=== PATIENT | male | born 1950 | race Caucasian/White ===

== ENCOUNTER → 2020-09-12 12:35 | Outpatient (BNVA) | payer MEDICARE, SELFPAY | PROVIDERS: PCP Nurse Practitioner Family; Referring Provider Nurse Practitioner Family; Visit Provider Internal Medicine Cardiovascular Disease | DX: I77.89 Other specified disorders of arteries and arterioles (principal); I35.1 Nonrheumatic aortic (valve) insufficiency; I10 Essential (primary) hypertension; Z79.899 Other long term (current) drug therapy | CPT/HCPCS: 93005; 99212 ==

== ENCOUNTER → 2020-11-11 08:26 | Outpatient (REF) | payer MEDICARE, SELFPAY ==
--- NOTE | 2020-11-11 08:29 | CA_ITS ---
Transthoracic Echocardiogram Patient (Last, First, Middle): Daniel Montilla A Gender: Male Date of : 1950 Age: 70 Procedure Date: 11/11/2020 Procedure Type: Transthoracic Echocardiogram Location: OP Height: 172.72 cm Weight: 92.99 kg BSA: 2.07 m2 Heart Rate: bpm BP: 130 / 80 mmHg Smash Piecer: [id number] Referring MD: Dylan Kovacs MD Living Skills Advisor: Dylan Kovacs MD Symptoms: I77.89 - Other specified disorders of arteries and arteri... Study Quality: Fair ECG Rhythm: Sinus Conclusions: - 1. Normal LV systolic function with pseudonormal filling pattern 2. Mild aortic regurgitation 3. Normal RV systolic pressure 4. Mildly dilated ascending aorta 5. No gross pericardial effusion Findings Left Ventricle Normal left ventricular size, thickness, and systolic function. The visually estimated ejection fraction is between 60-65%. Spectral Doppler is indicative of a pseudonormal filling pattern. E/E prime ratio is between 8 and 15 consistent with indeterminate filling pressures. Right Ventricle Normal right ventricular cavity size and systolic function. Atria Both atria are normal in size. There is no evidence of interatrial shunt. Aortic Valve Normal aortic valve structure and function. There is no aortic valve stenosis. There is mild aortic valve regurgitation. Mitral Valve There is mild anterior mitral leaflet thickening. There is moderate mitral annular calcification. There is trace mitral valve regurgitation. There is no mitral valve stenosis. Pulmonic Valve The pulmonic valve is likely normal. There is trace to mild pulmonic valve regurgitation. Tricuspid Valve Normal tricuspid valve structure. There is trace tricuspid valve regurgitation. The right ventricular systolic pressure is normal. The right ventricular systolic pressure is 27 mmHg. Normal right atrial pressure. There is no evidence of pulmonary hypertension. Great Vessels The pulmonary artery was not well visualized. There is mild dilatation of the ascending aorta measuring 3.90 cm. Venous The inferior vena cava is normal in size and collapses greater than 50% with inspiration. Pericardium/Pleural There is no evidence of pericardial effusion. Prior Study Comparison No significant change compared to prior study dated: 09/05/2018. Measurements 2D Linear Measurements IVSd: 0.99 0.6-0.9/0.6-1.0 cm LVIDd: 5.39 3.9-5.3/4.2-5.9 cm LVIDd Index: 2.60 2.4-3.2/2.2-3.1 cm/m2 LVIDs: 3.19 2.0-3.6 cm LVPWd: 1.15 0.7-1.1 cm Ao Root: 3.30 2.1-3.5 cm LA Diam: 3.90 2.7-3.8/3.0-4.0 cm LAIDs Index: 1.88 1.5-2.3 cm/m2 LV Mass: 280.30 67-162/88-224 g LV Mass Index: 135.41 43-95/49-115 g/m2 LVOT Diam: 2.00 3.0+(-)1.3 cm 2D Systolic Function EF 4C: 54.10 >55% EF 2C: 71.00 >55% EF BiP: 63.70 >55% Mitral Valve MV Pk E: 0.89 MV PK A: 0.76 MV Decel Time: 129.00 E/A: 1.20 E'Lateral: 10.60 E'Medial: 7.40 E/E' Med: 12.00 E/E' Lat: 8.40 PHT: 38.00 MVA PHT: 5.79 Decel [place]: 6.87 Aortic Valve AoV Pk Vladimir: 1.67 AoV Pk Grad: 11.00 AI Pk Vladimir: 3.87 AI [place]: 1.94 LVOT LVOT Pk Vladimir: 1.16 LVOT Mn Vladimir: 0.77 LVOT VTI: 0.27 LVOT Pk Grad: 5.00 LVOT Mn Grad: 3.00 LVOT Diam: 2.00 LVOT Area: 3.14 Diastolic Function MV Pk E: 0.89 MV Pk A: 0.76 E/A: 1.20 E'Medial: 7.40 E/E' Med: 12.00 E' Laterial: 10.60 E/E' Lat: 8.40 Right Ventricle TAPSE (mm): 2.60 Tricuspid Valve TR Pk Vladimir: 2.43 TR Pk Grad: 24.00 RA Press: 3.00 RVSP: 27.00 Great Vessels Aorta Ao Root-2D: 3.30 2.0-3.7 cm Ao Asc: 3.90 2.1-3.4 cm Updated in Other Vendor System with Status of Final Dylan Kovacs MD electronically signed on 11/13/2020 2:21:22 PM with status of Final
== END ==
LOC: HO.CARD 08:26
PROVIDERS: PCP Nurse Practitioner Family; Visit Provider Internal Medicine Cardiovascular Disease
DX: I35.1 Nonrheumatic aortic (valve) insufficiency (principal); I77.89 Other specified disorders of arteries and arterioles
CPT/HCPCS: 93306

== ENCOUNTER → 2021-09-15 08:09 | Outpatient (BNVA) | payer MEDICARE, SELFPAY | PROVIDERS: PCP Nurse Practitioner Family; Referring Provider Nurse Practitioner Family; Visit Provider Internal Medicine Cardiovascular Disease | DX: I77.89 Other specified disorders of arteries and arterioles (principal); R40.20 Unspecified coma; R00.2 Palpitations | CPT/HCPCS: 93005; 99212 ==

== ENCOUNTER → 2021-10-29 07:20 | Outpatient (REF) | payer MEDICARE, SELFPAY ==
--- NOTE | 2021-10-29 07:25 | CA_ITS ---
Transthoracic Echocardiogram Patient (Last, First, Middle): Daniel Montilla A Gender: Male Date of : 1950 Age: 71 Procedure Date: 10/29/2021 Procedure Type: Transthoracic Echocardiogram Location: OP Height: 172.72 cm Weight: 95.26 kg BSA: 2.09 m2 Heart Rate: bpm BP: 126 / 60 mmHg Asset Specialist: Referring MD: Dylan Kovacs MD Symptoms: I77.89 - Other specified disorders of arteries and arterioles Study Quality: Fair ECG Rhythm: Sinus Conclusions: - The left ventricular systolic function is normal. The calculated ejection fraction is 60% by biplane method. - There is mild aortic valve regurgitation. - There is mild mitral annular calcification. - There is mild dilatation of the ascending aorta measuring 3.90 cm. Findings Left Ventricle Normal left ventricular cavity size. There is normal left ventricular wall thickness. The left ventricular systolic function is normal. The calculated ejection fraction is 60% by biplane method. There is no evidence of regional wall motion abnormalities. Diastolic function is normal for age. LV peak GLS -17.2%. Right Ventricle Normal right ventricular cavity size and systolic function. Atria Both atria are normal in size. Aortic Valve There is a normal trileaflet aortic valve. There is no aortic valve stenosis. There is mild aortic valve regurgitation. Mitral Valve The mitral valve appears normal. There is mild mitral annular calcification. There is trace mitral valve regurgitation. There is no mitral valve stenosis. Pulmonic Valve The pulmonic valve is likely normal. Tricuspid Valve There is trace tricuspid valve regurgitation. The pulmonary artery systolic pressure is normal. Great Vessels There is mild dilatation of the ascending aorta measuring 3.90 cm. Venous The inferior vena cava is normal in size and collapses greater than 50% with inspiration. Pericardium/Pleural There is no evidence of pericardial effusion. Prior Study Comparison No significant change compared to prior study dated: 11/11/2020. Measurements 2D Linear Measurements IVSd: 0.99 0.6-0.9/0.6-1.0 cm LVIDd: 4.72 3.9-5.3/4.2-5.9 cm LVIDd Index: 2.26 2.4-3.2/2.2-3.1 cm/m2 LVIDs: 3.09 2.0-3.6 cm LVPWd: 1.13 0.7-1.1 cm Ao Root: 3.40 2.1-3.5 cm LA Diam: 3.90 2.7-3.8/3.0-4.0 cm LAIDs Index: 1.87 1.5-2.3 cm/m2 LV Mass: 223.89 67-162/88-224 g LV Mass Index: 107.13 43-95/49-115 g/m2 LVOT Diam: 2.00 3.0+(-)1.3 cm 2D Systolic Function EF 4C: 58.90 >55% EF 2C: 59.70 >55% EF BiP: 59.70 >55% Mitral Valve MV Pk E: 0.68 MV PK A: 1.09 MV Decel Time: 271.00 E/A: 0.60 E'Lateral: 7.07 E'Medial: 5.98 E/E' Med: 11.40 E/E' Lat: 9.60 PHT: 79.00 MVA PHT: 2.78 Decel Jack: 2.51 Aortic Valve AoV Pk Vladimir: 1.46 AoV Mn Vladimir: 0.96 AoV VTI: 0.37 AoV Pk Grad: 9.00 Aov Mn Grad: 4.00 SLY Cont.VTI: 2.35 AI Pk Vladimir: 4.10 AI Jack: 1.97 LVOT LVOT Pk Vladimir: 1.14 LVOT Mn Vladimir: 0.77 LVOT VTI: 0.28 LVOT Pk Grad: 5.00 LVOT Mn Grad: 3.00 LVOT Diam: 2.00 LVOT Area: 3.14 Diastolic Function MV Pk E: 0.68 MV Pk A: 1.09 E/A: 0.60 E'Medial: 5.98 E/E' Med: 11.40 E' Laterial: 7.07 E/E' Lat: 9.60 Right Ventricle TAPSE (mm): 26.00 Great Vessels Aorta Ao Root-2D: 3.40 2.0-3.7 cm Ao Asc: 3.90 2.1-3.4 cm Pulmonary Valve PV Pk Vladimir: 0.89 Peak PV Grad: 3.00 Updated in Other Vendor System with Status of Final Devyn Og MD electronically signed on 10/31/2021 11:03:02 AM with status of Final
--- NOTE | 2021-10-29 07:25 | HM_ITS ---
Conclusion: 1. Patient was monitored for total period of 3 days 2. Baseline numbers normal sinus rhythm with average heart rate of 66 beats per minute 3. No significant pauses noted 4. 5 short episodes of supraventricular oral or on longest lasting 8 beats and fastest at 151 beats per minute 5. Total of 392 PACs accounting for 0.16% of total beats account for occasional PACs 6. No patient reported events MTDD
== END ==
LOC: HO.CARD 07:20
PROVIDERS: PCP Nurse Practitioner Family; Visit Provider Internal Medicine Cardiovascular Disease
DX: I77.89 Other specified disorders of arteries and arterioles (principal); R00.2 Palpitations; R40.20 Unspecified coma
CPT/HCPCS: 93242; 93306; 93356

== ENCOUNTER 2021-12-16 06:29 | Outpatient (REF) | payer MEDICARE, SELFPAY ==
[2021-12-16 11:31] LABS: MANUAL DIFF FLAG NO
[2021-12-16 11:40] LABS: Basophils Absolute Auto 0.1 X10*3/uL (0.0-0.2); Basophils Percent Auto 0.8 % (0-2); Eosinophils Absolute Auto 0.4 X10*3/uL (0.0-0.4); Eosinophils Percent Auto 5.2 % (0-4); Hematocrit 41.3 % (42.0-52.0); Hemoglobin 13.7 g/dl (14.0-18.0); Imm Gran Abs Auto 0.02 X10*3/uL (0.00-0.03); Imm Gran Pct Auto 0.3 % (0.0-0.4); Lymphocytes Absolute Auto 1.9 X10*3/uL (1.2-4.9); Lymphocytes Percent Auto 24.3 % (20-40); Mean Corpuscular HGB Conc 33.2 g/dl (31.0-36.0); Mean Corpuscular Hemoglobin 30.9 pg (27.0-33.0); Monocytes Absolute Auto 0.7 X10*3/uL (0.1-1.2); Monocytes Percent Auto 8.3 % (2-11); Neutrophils Absolute Auto 4.8 x10*3/uL (2.0-8.3); Neutrophils Percent Auto 61.1 % (45-73); Platelet Count 297 X10*3/uL (160-400); Red Blood Count 4.44 X10*6/uL (4.60-5.80); Red Cell Distribution Width 13.5 % (11.0-16.0); White Blood Count 7.9 X10*3/uL (4.8-10.8)
[2021-12-16 11:44] LABS: Appearance Urine Cloudy; Color Urine Yellow; Glucose Urine UA Negative (Negative); Leukocyte Esterase Urine Trace (Negative); Nitrite Urine Negative (Negative); PH 5.5 (5.0-9.0); UMIC TRIGGER UACC YES; Urine Blood Negative (Negative); Urine Ketones Negative (Negative); Urine Protein Negative (Neg-Trace)
[2021-12-16 11:55] LABS: Bacteria Urine None Seen (None Seen); Hyaline Casts Urine 0-2 /LPF (0-2); RBC Urine 0-2 /HPF (0-2); Squamous Epithelial Cell Urine 0-2 /HPF (0-2); WBC Urine 0-5 /HPF (0-5)
[2021-12-16 12:06] LABS: Alanine Aminotransferase 14 U/L (0-40); Alkaline Phosphatase 75 U/L (39-117); Anion Gap 13 (12-20); Aspartate Amino Transferase 17 U/L (5-37); Bilirubin Total 0.5 mg/dL (0.0-1.0); Blood Urea Nitrogen 18 mg/dL (9-16); Carbon Dioxide 25 mmol/L (22-29); Chloride 105 mmol/L (96-108); Cholesterol 204 mg/dL; Estimated Glomerular Filt Rate > 60; Glucose Fasting 103 mg/dL (60-99); HDL Cholesterol 59 mg/dL; LDL Cholesterol Calculated 121 mg/dl; Potassium 4.2 mmol/L (3.3-5.1); Sodium 139 mmol/L (135-145); Triglycerides 120 mg/dL
[2021-12-16 12:09] LABS: Prostate Specific Antigen Scr 0.91 ng/mL (<0.05-4.0); TSH reflex Free T4 1.67 uIU/mL (0.32-4.0)
== END 2021-12-16 06:30 | disposition home or self-care (01) ==
LOC: HO.HMGCLDS 06:29
PROVIDERS: PCP Nurse Practitioner Family; Visit Provider Nurse Practitioner Family
DX: Z00.00 Encounter for general adult medical examination without abnormal findings (principal); Z12.5 Encounter for screening for malignant neoplasm of prostate
CPT/HCPCS: 36415; 80053; 80061; 81001; 84153; 84443; 85025

== ENCOUNTER 2022-01-06 07:52 | Outpatient (REF) | payer MEDICARE, SELFPAY ==
[2022-01-06 12:08] LABS: FIT Int Ctl YES; FIT1 NEGATIVE (NEGATIVE); FIT2 NEGATIVE (NEGATIVE)
== END 2022-01-06 07:53 | disposition home or self-care (01) ==
LOC: HO.HMGCLDS 07:52
PROVIDERS: PCP Nurse Practitioner Family; Visit Provider Nurse Practitioner Family
DX: D64.9 Anemia, unspecified (principal)
CPT/HCPCS: 82274

== ENCOUNTER → 2022-09-09 08:00 | Outpatient (REF) | payer MEDICARE, SELFPAY ==
--- NOTE | 2022-09-09 08:03 | CA_ITS ---
Transthoracic Echocardiogram Patient (Last, First, Middle): Daniel Montilla A Gender: Male Date of : 1950 Age: 71 Procedure Date: 09/09/2022 Procedure Type: Transthoracic Echocardiogram Location: OP Height: 172.72 cm Weight: 90.72 kg BSA: 2.04 m2 Heart Rate: bpm BP: 144 / 84 mmHg Clerical Aide Teacher: TO Referring MD: Dylan Kovacs MD Vice President Digital Strategist: Dylan Kovacs MD Symptoms: I35.1 - Nonrheumatic aortic (valve) insufficiency Study Quality: Fair ECG Rhythm: Sinus Conclusions: - 1. Mildly dilated left ventricle with LVEF of 55-60% with impaired relaxation filling pattern 2. Mildly dilated ascending aorta at 4.1 cm 3. Mild mitral and aortic regurgitation 4. Normal RV systolic pressure 5. No pericardial effusion Findings Left Ventricle Mildly increased left ventricular cavity size. There is normal left ventricular wall thickness. The left ventricular systolic function is normal. The visually estimated ejection fraction is between 55-60%. Spectral Doppler is indicative of an impaired relaxation filling pattern. E/E prime ratio is between 8 and 15 consistent with indeterminate filling pressures. Peak GLS is -19.6%, within normal limits. Right Ventricle Normal right ventricular cavity size and systolic function. Atria The left atrium is likely dilated. There is no evidence of interatrial shunt. The right atrium is normal in size. Aortic Valve Normal aortic valve structure and function. There is no aortic valve stenosis. There is mild aortic valve regurgitation. Mitral Valve There is mild anterior and posterior mitral leaflet thickening. There is trace mitral valve regurgitation. There is no mitral valve stenosis. Pulmonic Valve The pulmonic valve was not well visualized. Tricuspid Valve Likely normal tricuspid valve structure and function. There is mild tricuspid valve regurgitation. The right ventricular systolic pressure is normal. The right ventricular systolic pressure is 29 mmHg. Normal right atrial pressure. There is no evidence of pulmonary hypertension. Great Vessels The pulmonary artery was not well visualized. There is mild dilatation of the ascending aorta measuring 4.10 cm. Venous The inferior vena cava is normal in size and collapses greater than 50% with inspiration. Pericardium/Pleural There is no evidence of pericardial effusion. Prior Study Comparison Changes noted compared to prior study dated: 10/29/2021. Ascending aorta is further enlarged at 4.1 cm Measurements 2D Linear Measurements IVSd: 0.99 0.6-0.9/0.6-1.0 cm LVIDd: 5.83 3.9-5.3/4.2-5.9 cm LVIDd Index: 2.86 2.4-3.2/2.2-3.1 cm/m2 LVIDs: 3.06 2.0-3.6 cm LVPWd: 0.86 0.7-1.1 cm LA Diam: 3.60 2.7-3.8/3.0-4.0 cm LAIDs Index: 1.76 1.5-2.3 cm/m2 LV Mass: 264.47 67-162/88-224 g LV Mass Index: 129.64 43-95/49-115 g/m2 LVOT Diam: 2.20 3.0+(-)1.3 cm 2D Systolic Function EF 4C: 56.40 >55% EF 2C: 60.30 >55% EF BiP: 58.30 >55% Mitral Valve MV Pk E: 0.89 MV PK A: 0.82 MV Decel Time: 219.00 E/A: 1.10 E'Lateral: 8.38 E'Medial: 6.64 E/E' Med: 13.40 E/E' Lat: 10.60 PHT: 64.00 MVA PHT: 3.44 Decel [place]: 4.07 Aortic Valve AoV Pk Vladimir: 1.72 AoV Mn Vladimir: 1.09 AoV VTI: 0.39 AoV Pk Grad: 12.00 Aov Mn Grad: 6.00 SLY Cont.VTI: 2.85 AI Pk Vladimir: 4.43 AI [place]: 2.02 LVOT LVOT Pk Vladimir: 1.23 LVOT Mn Vladimir: 0.77 LVOT VTI: 0.29 LVOT Pk Grad: 6.00 LVOT Mn Grad: 3.00 LVOT Diam: 2.20 LVOT Area: 3.80 Diastolic Function MV Pk E: 0.89 MV Pk A: 0.82 E/A: 1.10 E'Medial: 6.64 E/E' Med: 13.40 E' Laterial: 8.38 E/E' Lat: 10.60 Right Ventricle TAPSE (mm): 25.60 TVS' Vladimir: 15.30 Tricuspid Valve TR Pk Vladimir: 2.57 TR Pk Grad: 26.00 RA Press: 3.00 RVSP: 29.00 Great Vessels Aorta Sinus of Valsalva: 3.65 2.0-3.[address] [place]: 3.11 1.7-3.4 cm Ao Asc: 4.10 2.1-3.4 cm Ao Arch: 3.60 Updated in Other Vendor System with Status of Final Dylan Kovacs MD electronically signed on 09/09/2022 2:26:39 PM with status of Final
== END ==
LOC: HO.CARD 08:00
PROVIDERS: PCP Nurse Practitioner Family; Visit Provider Internal Medicine Cardiovascular Disease
DX: I35.1 Nonrheumatic aortic (valve) insufficiency (principal); I77.89 Other specified disorders of arteries and arterioles
CPT/HCPCS: 93306; 93356

== ENCOUNTER → 2022-09-21 08:30 | Outpatient (BNVA) | payer MEDICARE, SELFPAY | PROVIDERS: PCP Nurse Practitioner Family; Referring Provider Nurse Practitioner Family; Visit Provider Internal Medicine Cardiovascular Disease | DX: I77.89 Other specified disorders of arteries and arterioles (principal); I10 Essential (primary) hypertension; R42 Dizziness and giddiness | CPT/HCPCS: 99212 ==

== ENCOUNTER 2023-01-06 14:38 | Inpatient (IN) | payer MEDICARE, OTHER, SELFPAY ==
[2023-01-06] VITALS (11 sets, daily range): BP systolic 96–139; BP diastolic 56–78; PULSE 76–115; RESP 18; TEMP 32–37.7; O2SAT 94–100; BMI 27.1
--- NOTE | ~2023-01-06 | CT_ITS ---
EXAMINATION: CT CHEST, ABDOMEN AND PELVIS WITHOUT CONTRAST CLINICAL INFORMATION: Cough, vomiting and altered mental status COMPARISON: No pertinent prior studies are available for comparison. TECHNIQUE: Multidetector volumetric imaging was performed from the thoracic inlet through the pubic symphysis without IV contrast. Sagittal and coronal reformatted images were obtained on the technologist's workstation. This CT examination was performed using dose optimization techniques as appropriate, variously including the following: *Automated exposure control *Adjustment of mA and/or kV according to patient size (this includes techniques or standardized protocols for targeted exams where dose is matched to indication/reason for exam; i.e. extremities or head) *Use of iterative reconstruction technique DLP: Abdomen and chest 816 mGy-cm 310 mGy-cm FINDINGS: CHEST: Lung: An ET tube is present in good position above the zachary. The lungs are clear without infiltrates, effusions or lung masses. Some dependent atelectasis is present. Mediastinum: The mediastinum is unremarkable. The central vascular structures are unremarkable. No hilar or mediastinal lymphadenopathy. No significant coronary calcium is appreciated. Pericardium/Pleura: No significant effusion. No pleural mass or thickening. Chest Wall/Axilla: Unremarkable ABDOMEN/PELVIS: Peritoneal Space: No significant free air or free fluid identified. Liver, Gallbladder, Biliary Tree: The liver is normal in size, shape, and attenuation. No focal hepatic lesion or biliary ductal dilatation is present. The gallbladder is unremarkable with no evidence of radiopaque gallstones, gallbladder wall thickening, or obvious pericholecystic inflammatory changes. Pancreas: Unremarkable Spleen: Unremarkable Adrenal Glands: Unremarkable Kidneys and Ureters: The kidneys are normal in size, shape, and attenuation. No hydronephrosis, hydroureter, or calculi seen. No perinephric stranding. Bladder: Unremarkable Gastrointestinal Tract: An NG tube is present with its tip in the stomach. Extensive diverticular disease is present in the entire left colon without findings to suggest acute diverticulitis. The small and remainder of the large bowel are unremarkable. The appendix is unremarkable. Abdominal Wall: No significant hernia is appreciated. There is a tiny periumbilical hernia seen containing only fat. Small bilateral inguinal hernias containing only fat. Lymph Nodes: No retroperitoneal lymphadenopathy Vascular: The aorta and iliofemoral vessels demonstrate calcification without aneurysm.. The IVC appears unremarkable. PELVIC VISCERA: The prostate and seminal vesicles are unremarkable. OSSEUS STRUCTURES: Degenerative changes are present in the spine. There is collapse of the superior endplate of L4 with what may be a large Schmorl's node. There is a compression fracture involving the superior endplate of L1. Large Schmorl's node superior endplate T11. There is grade 1 anterolisthesis of L5 upon S1 with bilateral L5 pars defects. CT/CT abdomen pelvis wo IV con IMPRESSION: 1. A cause for the cough and vomiting has not been found. 2. Incidental note made of ET tube in good position, NG tube in stomach, extensive colonic diverticulosis without diverticulitis and degenerative changes in the spine with compression fractures as described above. Fleischner guidelines were followed.
--- NOTE | ~2023-01-06 | XR_ITS ---
EXAMINATION: XR CHEST CLINICAL INFORMATION: Status-post central line placement. COMPARISON: CT chest dated 01/06/2023. TECHNIQUE: Frontal view of the chest was obtained. FINDINGS: The heart, great vessels, pulmonary vasculature and mediastinum are stable. There is mild to moderate elevation of the right hemidiaphragm. No infiltrate, effusion or pneumothorax is seen. There is no acute osseous abnormality. There are degenerative changes of the shoulders. A right internal jugular central venous catheter is seen, with tip situated in the superior vena cava. An endotracheal tube is seen, with tip situated 6.1 cm superior to the zachary. A orogastric tube is seen, with tip situated inferior to the left hemidiaphragm and omitted from the [id number]. XR/XR chest 1V IMPRESSION: 1. Support tubes and catheters are positioned, as detailed. No pneumothorax is seen. 2. No focal infiltrate or congestive heart failure is seen.
--- NOTE | ~2023-01-06 | XR_ITS ---
EXAMINATION: XR CHEST CLINICAL INFORMATION: Hypoxia. COMPARISON: 01/06/2023. TECHNIQUE: Frontal view of the chest was obtained. FINDINGS: The cardiomediastinal silhouette is stable. There is an endotracheal tube seen in good position above the zachary. A gastric tube extends below the diaphragm beyond the field of imaging. A right central line is in a stable position. There is a faint right medial lower lung field opacity. The lungs are otherwise clear. There are no significant pleural effusions. The bony structures and soft tissues are unremarkable. XR/XR chest 1V IMPRESSION: Endotracheal tube, gastric tube and right central line in place. Medial right lung base faint opacity possibly atelectasis and less likely infiltrate.
--- NOTE | ~2023-01-06 | CT_ITS ---
EXAMINATION: CT HEAD WITHOUT CONTRAST CLINICAL INFORMATION: Headache status-post trauma. COMPARISON: None available. TECHNIQUE: Contiguous axial imaging was performed from the skull base to vertex without intravenous administration of contrast. Multiplanar reformatted images are submitted. This CT examination was performed using dose optimization techniques as appropriate, variously including the following: *Automated exposure control *Adjustment of mA and/or kV according to patient size (this includes techniques or standardized protocols for targeted exams where dose is matched to indication/reason for exam; i.e. extremities or head) *Use of iterative reconstruction technique DLP: 769 mGy-cm (head and cervical spine) FINDINGS: There is no acute intracranial hemorrhage or evidence of territorial infarction. No abnormal mass effect or midline shift is seen. Maurer to white matter differentiation is well preserved. There is no abnormal attenuation within the brain parenchyma. The ventricles are normal in size. No extra-axial fluid collections are identified. The calvarium and scalp soft tissues are normal. The middle ear cavity and mastoid air cells are clear. There is moderate bilateral ethmoid and mild bilateral maxillary mucosal thickening. Orogastric and endotracheal tubes are noted. CT/CT cervical spine wo IV con IMPRESSION: 1. No acute intracranial pathology. 2. There is paranasal sinusitis. EXAMINATION: CT CERVICAL SPINE WITHOUT CONTRAST CLINICAL INFORMATION: Neck pain status-post trauma. COMPARISON: None available. TECHNIQUE: Contiguous axial imaging was performed through the cervical spine without intravenous administration of contrast. Multiplanar reformatted images are submitted. This CT examination was performed using dose optimization techniques as appropriate, variously including the following: *Automated exposure control *Adjustment of mA and/or kV according to patient size (this includes techniques or standardized protocols for targeted exams where dose is matched to indication/reason for exam; i.e. extremities or head) *Use of iterative reconstruction technique DLP: As above FINDINGS: Vertebral body heights and alignment are normal. At C3-C4, there is minimal vacuum disc phenomenon. At C5-C6, there is moderately severe disc space narrowing. At C6-C7, there is moderate disc space narrowing, with vacuum disc phenomenon. No acute fracture or spondylolisthesis is seen. This multi-level cervical spondylosis. The dens is intact. No prevertebral soft tissue swelling is seen. The bilateral lung apices are clear. IMPRESSION: 1. No acute fracture or spondylolisthesis is seen. 2. There is multi-level cervical degenerative disc disease, spondylosis and facet arthropathy. Degenerative disc disease is most pronounced at C5-C6, where it is moderately severe. Fleischner guidelines were followed.
[2023-01-06] MEDS: OLANZapine 10 MG VIAL 5 MG IM (14:53)
[2023-01-06] MEDS: LORazepam 2 MG/ML VIAL IVPUSH (14:53)
--- NOTE | 2023-01-06 14:55 | ECG_ITS ---
Test Reason : TACHY Blood Pressure : / mmHG Vent. Rate : 098 BPM Atrial Rate : 098 BPM P-R Int : 144 ms QRS Dur : 114 ms QT Int : 370 ms P-R-T Axes : 067 -83 063 degrees QTc Int : 472 ms Normal sinus rhythm Incomplete right bundle branch block Left anterior fascicular block Nonspecific ST abnormality Abnormal ECG No previous ECGs available Referred By: Gisel Lopez Electronically Signed By:SUSSY MORALES
--- NOTE | 2023-01-06 15:02 | ED.AMS ---
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 EMS notes vomit was everywhere but no blood or coffee ground. There was also beer cans everywhere. He was restrained en route no other history provided MD complaint: altered mental status Onset (ago): unknown Timing confirmed by: family member (last seen ) Severity: severe Consistency of symptoms: unknown Context: unknown Associated symptoms: denies other symptoms Related Data Previous Rx's Medication Instructions Recorded amlodipine 5 mg tablet 5 mg PO DAILY #90 tabs 09/29/22 labetalol 300 mg tablet 300 mg PO BID 90 days #180 tabs 09/29/22 lisinopril 10 mg tablet 10 mg PO DAILY #90 tabs 12/23/22 Allergies Allergy/AdvReac Type Severity Reaction Status Date / Time No Known Allergies Allergy Verified 09/21/22 08:46 Review of Systems Review of Systems: ROS unable to be obtained due to altered mental status [facility] Past Medical History Attestation statement: The following information was validated with the patient. Source: old records reviewed Medical History HTN (hypertension) Aortic regurgitation Ascending aorta enlargement Surgical History No pertinent past surgical history Family History Family History Father Smoker Lung cancer Mother No problems noted. Brother No problems noted. Sister No problems noted. Social History Social History Housing: House Unable to assess alcohol history related to: Unable to respond and Unknown Alcohol intake: current Alcohol intake frequency: a few times a week Patient Tobacco Use Status: Never used Tobacco e-Cigarette/Vaping Use: Never Used Use of substances other than those prescribed or required for medical reasons: Unable to respond Substance Use Type: Marijuana Advance Directives: No Advance Directives Information Provided: No Current occupational status: employed Cognitive needs: No Hearing needs: No Vision needs: Yes Physical Exam ED Vital Signs: Vital Signs - 24 hr 01/06/23 15:17 01/06/23 17:22 01/06/23 18:00 Temperature 98 F Pulse Rate 115 H 101 H Respiratory Rate 18 18 Blood Pressure Pulse Oximetry 99 Oxygen Delivery Method Room Air Fraction of Inspired Oxygen 40 01/06/23 18:43 01/06/23 20:27 01/06/23 20:32 Temperature 100 F Pulse Rate 93 83 Respiratory Rate 18 18 Blood Pressure 101/62 Pulse Oximetry 94 100 Oxygen Delivery Method Room Air Mechanical Ventilation Fraction of Inspired Oxygen 28 BMI result Body Mass Index 27.1 Appearance: thrashing, localizing, moderate acute distress. Eyes: Pupils equal, round and reactive to light 3mm fighting to keep eyes closed ENT: Pharynx very dry MM, atraumatic Neck: Normal inspection. Neck supple. CVS: Normal heart rate and rhythm. Pulses normal. Respiratory: No respiratory distress. Breath sounds normal. Abdomen: Soft and no distention Skin: Skin warm and dry. Normal skin color. poor skin turgor. Extremities: No lower extremity edema. Neuro: localizes to pain, agitated, attempting to grab at staff, will not answer questions tracking with eyes he is not speaking, tremors noted in both UE no seizure movements noted Course Course Course Narrative: significant agitation after all medications trying to get up and agitated thrashing to grab things swinging and kicking up at this time additional 130mg IV phenobarb ordered. Reevaluation(s) Reevaluation #1: reportedly per brother the patient spoke to a friend yesterday and was normal, no hx of seizures, only smokes THC, no hx of this. He states he cannot think of why this would happen. He doesn't think he has been drinking he is a FULL CODE. Reevaluation #2: no response to medications at this time will need to intubate I cannot get a CT head with 2mg IV ativan, phenobarb x 2, zyprexa maxed out on propofol and fentanyl at this time will start versed as well we have no ICU beds CT scans pending covered with ceftriaxone and vancomycin and acylovir - delay in antibiotics due to acute agitation 6pm - I am covering him in case of encephalitis I have no cause for this and he is undifferentiated with WBC 13. CT scan other than L1 compression fracture are negative brother aware of intubation, central line. Doris Burgess, Carla, [facility], [place] closed for ICU transfers Reevaluation #3: Dr. Tam to take patient, ETT advanced 3cm Medications Administered Generic Name Dose Route Start Last Admin Trade Name Freq PRN Reason Stop Dose Admin Propofol 1,000 mg in 100 mls @ 0 mls/hr 01/06/23 16:45 01/06/23 17:22 Diprivan IVCONT 30 mcg/kg/min .Q0M HAWA 15.84 mls/hr Administration Protocol Per Protocol Fentanyl 1,000 mcg in 100 mls @ 0 mls/hr 01/06/23 16:45 01/06/23 17:25 Sublimaze/Ns IVCONT 25 mcg/hr .Q0M HAWA 2.5 mls/hr Administration Protocol Per Protocol Midazolam HCl 50 mg in 50 mls @ 2 mls/hr 01/06/23 18:15 01/06/23 18:15 Versed IVCONT 2 mg/hr .Q24H HAWA 2 mls/hr Administration 2 MG/HR Sodium Chloride 1,000 mls @ 125 mls/hr 01/06/23 19:15 01/06/23 20:28 Ns IVCONT 125 mls/hr .Q8H HAWA Administration Discontinued Medications Generic Name Dose Route Start Last Admin Trade Name Freq PRN Reason Stop Dose Admin Etomidate 20 mg 01/06/23 16:40 01/06/23 16:40 Etomidate 20 Mg/10 Ml Vial IVPUSH 01/06/23 16:41 20 mg ONCE ONE Administration Sodium Chloride 1,000 mls @ 999 mls/hr 01/06/23 15:00 01/06/23 20:37 Ns IV 01/06/23 16:00 Infused .Q1H1M HAWA Infusion Thiamine HCl 200 mg/ Sodium 102 mls @ 204 mls/hr 01/06/23 15:27 01/06/23 20:00 Chloride IV 01/06/23 15:56 Infused ONCE ONE Infusion Ceftriaxone Sodium 2 gm/ 50 mls @ 100 mls/hr 01/06/23 18:15 01/06/23 19:51 Sodium Chloride IV 01/06/23 18:44 Infused ONCE ONE Infusion Vancomycin HCl 2,000 mg in 500 mls @ 250 mls/hr 01/06/23 18:15 01/06/23 19:49 Vancomycin/Ns IV 01/06/23 20:14 250 mls/hr ONCE ONE Administration Acyclovir Sodium 880 mg/ 267.6 mls @ 267.6 mls/hr 01/06/23 18:21 01/06/23 21:21 Sodium Chloride IV 01/06/23 18:22 Infused ONCE ONE Infusion Lorazepam 2 mg 01/06/23 14:54 01/06/23 14:53 Lorazepam 2 Mg/Ml Vial IVPUSH 01/06/23 14:55 2 mg ONCE ONE Administration Olanzapine 5 mg 01/06/23 14:54 01/06/23 14:53 Olanzapine 10 Mg Vial IM 01/06/23 14:55 5 mg STAT STA Administration Ondansetron HCl 4 mg 01/06/23 14:56 01/06/23 18:20 Ondansetron Hcl 4 Mg/2 Ml Vial IVPUSH 01/06/23 14:57 4 mg ONCE ONE Administration Pantoprazole Sodium 40 mg 01/06/23 18:56 01/06/23 20:01 Pantoprazole Sodium 40 Mg/10 Ml Vial IVPUSH 01/06/23 18:57 40 mg ONCE ONE Administration Phenobarbital Sodium 301.6 mg 01/06/23 16:00 01/06/23 15:45 Phenobarbital Sodium 130 Mg/Ml Im Once IM 01/06/23 16:01 301.6 mg ONCE ONE Administration Protocol Phenobarbital Sodium 130 mg 01/06/23 15:53 01/06/23 15:57 Phenobarbital Sodium 130 Mg/Ml Vial IVPUSH 01/06/23 15:54 130 mg ONCE ONE Administration Phenobarbital Sodium 130 mg 01/06/23 16:30 01/06/23 18:21 Phenobarbital Sodium 130 Mg/Ml Vial IVPUSH 01/06/23 16:31 Not Given ONCE ONE Propofol 50 mg 01/06/23 17:32 01/06/23 17:38 Propofol 200 Mg/20 Ml Vial IVPUSH 01/06/23 17:33 50 mg ONCE ONE Administration Propofol 100 mg 01/06/23 18:40 01/06/23 18:49 Propofol 200 Mg/20 Ml Vial IVPUSH 01/06/23 18:41 100 mg ONCE ONE Administration Rocuronium [place] 75 mg 01/06/23 16:40 01/06/23 17:41 Rocuronium [place] 50 Mg/5 Ml Vial IVPUSH 01/06/23 16:41 75 mg ONCE ONE Administration Medical Decision Making Medical Decision Making [facility] Narrative: 72 yo male from home hx of HTN, ascending 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 At this time will need basic labs, EKG, CT head/cspine/chest to rule out pathology and trauma. IV ativan and zyprexa on arrival as he was swinging and thrashing and could not be examined. I am going to start him on thiamine and phenobarb prophylactically and give dose of ceftriaxone given foul odor smell to urine on arrival and unknown cause of acute change in mental status. Differential Diagnosis Differential Diagnoses: The differential diagnosis associated with the presentation includes ingestion, delerium, withdrawal Admission/Observation Consideration of admission/observation: Escalation of care including admission/observation considered admit given agitation/AMS Consult Healthcare Provider Management of the patient was discussed with: Hospitalist Lab Data [facility] Lab Attestation statement: I reviewed the patient's lab results. 01/06/23 16:33 01/06/23 16:34 Labs: Lab Results 01/06/23 01/06/23 01/06/23 Range/Units 16:33 16:34 16:39 WBC 13.1 H (4.8-10.8) X10*3/uL RBC 4.70 (4.60-5.80) X10*6/uL Hgb 14.6 (14.0-18.0) g/dl Hct 43.7 (42.0-52.0) % MCV 93.0 (80.0-98.0) fL MCH 31.1 (27.0-33.0) pg MCHC 33.4 (31.0-36.0) g/dl RDW 13.3 (11.0-16.0) % Plt Count 305 (160-400) X10*3/uL MPV 9.0 L (9.4-12.4) fL Immature Gran % (Auto) 0.3 (0.0-0.4) % Neut % (Auto) 88.8 H (45-73) % Lymph % (Auto) 7.3 L (20-40) % [place] % (Auto) 3.2 (2-11) % Eos % (Auto) 0.0 (0-4) % Baso % (Auto) 0.4 (0-2) % Lymph # (Auto) 1.0 L (1.2-4.9) X10*3/uL [place] # (Auto) 0.4 (0.1-1.2) X10*3/uL Eos # (Auto) 0.0 (0.0-0.4) X10*3/uL Baso # (Auto) 0.1 (0.0-0.2) X10*3/uL Abs Immat Gran (auto) 0.04 H (0.00-0.03) X10*3/uL Absolute Neuts (auto) 11.6 H (2.0-8.3) x10*3/uL Absolute Nucleated RBC 0.000 (0.0-0.012) X10*3/uL Nucleated RBC % (auto) 0.0 (0.0-0.2) /100WBC PT 11.8 (11.1-13.3) SEC INR 1.0 (0.9-1.1) VBG pH 7.40 (7.32-7.43) VBG pCO2 42 mmHg VBG pO2 38 mmHg VBG HCO3 26 (22-26) mmol/L VBG O2 Saturation 60.0 % VBG Base Excess 1.8 mmol/L Sodium 138 (135-145) mmol/L Potassium 4.6 (3.3-5.1) mmol/L Chloride 104 (96-108) mmol/L Carbon Dioxide 23 (22-29) mmol/L Anion Gap 16 (12-20) BUN 11 (9-16) mg/dL Creatinine 0.86 (0.5-1.4) mg/dL Estim Creat Clear Calc 85.1 Estimated GFR > 60 Random Glucose 108 (60-115) mg/dL Lactic Acid 1.9 (0.5-2.0) mmol/L Calcium 9.9 D (8.4-10.2) mg/dL Magnesium 2.0 (1.6-2.6) mg/dL Total Bilirubin 0.5 (0.0-1.0) mg/dL Direct Bilirubin 0.2 (0.0-0.5) mg/dL AST 17 (5-37) U/L ALT 10 (0-40) U/L Alkaline Phosphatase 86 (39-117) U/L Ammonia 28 (13-55) umol/L Total Creatine Kinase 178 H (38-174) U/L Troponin I High Sens 12.9 (<3.5-35.0) ng/L C-Reactive Protein 0.23 (< or = 0.50) mg/dL B-Natriuretic Peptide 142 H (<100) pg/mL Total Protein 8.0 (6.5-8.0) g/dL Albumin 4.4 (3.5-5.0) g/dL Lipase 19 (8-78) U/L Procalcitonin 0.02 ng/mL TSH 1.35 (0.32-4.0) uIU/mL Urine Color Urine Appearance Urine pH (5.0-9.0) Ur Specific [place] (1.005-1.025) Urine Protein (Neg-Trace) mg/dL Urine Glucose (UA) (Negative) mg/dL Urine Ketones (Negative) mg/dL Urine Blood (Negative) Urine Nitrite (Negative) Ur Leukocyte Esterase (Negative) Urine RBC (0-2) /HPF Urine WBC (0-5) /HPF Ur Squamous Epith Cells (0-2) /HPF Urine Bacteria (None Seen) Hyaline Casts (0-2) /LPF Salicylates < 5.0 L (15-30) mg/dL Urine Opiates Screen (Not Detect) Urine Fentanyl Screen (Not Detect) Acetaminophen < 17 (<30) mcg/mL Ur Barbiturates Screen (Not Detect) Ur Phencyclidine Scrn (Not Detect) Ur Amphetamines Screen (Not Detect) U Benzodiazepines Scrn (Not Detect) Urine Cocaine Screen (Not Detect) U Marijuana (THC) Screen (Not Detect) Ethyl Alcohol < 10 mg/dL COVID-19 (RONDA) Negative (Negative) COVID-19 Clin Com See Note 01/06/23 Range/Units 18:14 WBC (4.8-10.8) X10*3/uL RBC (4.60-5.80) X10*6/uL Hgb (14.0-18.0) g/dl Hct (42.0-52.0) % MCV (80.0-98.0) fL MCH (27.0-33.0) pg MCHC (31.0-36.0) g/dl RDW (11.0-16.0) % Plt Count (160-400) X10*3/uL MPV (9.4-12.4) fL Immature Gran % (Auto) (0.0-0.4) % Neut % (Auto) (45-73) % Lymph % (Auto) (20-40) % [place] % (Auto) (2-11) % Eos % (Auto) (0-4) % Baso % (Auto) (0-2) % Lymph # (Auto) (1.2-4.9) X10*3/uL [place] # (Auto) (0.1-1.2) X10*3/uL Eos # (Auto) (0.0-0.4) X10*3/uL Baso # (Auto) (0.0-0.2) X10*3/uL Abs Immat Gran (auto) (0.00-0.03) X10*3/uL Absolute Neuts (auto) (2.0-8.3) x10*3/uL Absolute Nucleated RBC (0.0-0.012) X10*3/uL Nucleated RBC % (auto) (0.0-0.2) /100WBC PT (11.1-13.3) SEC INR (0.9-1.1) VBG pH (7.32-7.43) VBG pCO2 mmHg VBG pO2 mmHg VBG HCO3 (22-26) mmol/L VBG O2 Saturation % VBG Base Excess mmol/L Sodium (135-145) mmol/L Potassium (3.3-5.1) mmol/L Chloride (96-108) mmol/L Carbon Dioxide (22-29) mmol/L Anion Gap (12-20) BUN (9-16) mg/dL Creatinine (0.5-1.4) mg/dL Estim Creat Clear Calc Estimated GFR Random Glucose (60-115) mg/dL Lactic Acid (0.5-2.0) mmol/L Calcium (8.4-10.2) mg/dL Magnesium (1.6-2.6) mg/dL Total Bilirubin (0.0-1.0) mg/dL Direct Bilirubin (0.0-0.5) mg/dL AST (5-37) U/L ALT (0-40) U/L Alkaline Phosphatase (39-117) U/L Ammonia (13-55) umol/L Total Creatine Kinase (38-174) U/L Troponin I High Sens (<3.5-35.0) ng/L C-Reactive Protein (< or = 0.50) mg/dL B-Natriuretic Peptide (<100) pg/mL Total Protein (6.5-8.0) g/dL Albumin (3.5-5.0) g/dL Lipase (8-78) U/L Procalcitonin ng/mL TSH (0.32-4.0) uIU/mL Urine Color Yellow Urine Appearance Cloudy Urine pH 5.0 (5.0-9.0) Ur Specific [place] 1.020 (1.005-1.025) Urine Protein 30 (1+) H (Neg-Trace) mg/dL Urine Glucose (UA) Negative (Negative) mg/dL Urine Ketones 15 (Negative) mg/dL Urine Blood Trace H (Negative) Urine Nitrite Negative (Negative) Ur Leukocyte Esterase Negative (Negative) Urine RBC 0-2 (0-2) /HPF Urine WBC 0-5 (0-5) /HPF Ur Squamous Epith Cells 0-2 (0-2) /HPF Urine Bacteria None Seen (None Seen) Hyaline Casts 0-2 (0-2) /LPF Salicylates (15-30) mg/dL Urine Opiates Screen Not Detected (Not Detect) Urine Fentanyl Screen Not Detected (Not Detect) Acetaminophen (<30) mcg/mL Ur Barbiturates Screen POSITIVE H (Not Detect) Ur Phencyclidine Scrn Not Detected (Not Detect) Ur Amphetamines Screen Not Detected (Not Detect) U Benzodiazepines Scrn Not Detected (Not Detect) Urine Cocaine Screen Not Detected (Not Detect) U Marijuana (THC) Screen POSITIVE H (Not Detect) Ethyl Alcohol mg/dL COVID-19 (ORNDA) (Negative) COVID-19 Clin Com Independent Interpretation I performed an independent interpretation of an: EKG and CT Scan Interpretation: Rate: 98 Rhythm: NSR Mcdonough: left Normal P waves. Normal TYLER. RBBB ST T wave : no ST, nonspecific ST T wave changes qTC: normal prior studies: no prior The study has been interpreted contemporaneously by me. . Radiology Impression Discussion of test interpretation with radiology: I have reviewed the radiologist's reading. Independent Historian Clinical information obtained from an independent historian. History obtained from or confirmed by: EMS and Other (brother states no drug abuse does smoke THC and no hx of seizures or withdrawal symptoms not a heavy drinker) External Record Review External record reviewed: Office record Procedures Central Line Placement Right IJ: Time Out Performed: Yes Patient Placed on Monitor/Pulse Ox: Yes MD Prep: mask, gown and gloves Central Line Prep: Chlorhexidine scrub Local Anesthetic: lidocaine 1% Amount of anesthesia used (mL): 2 Ultrasound Used for Placement: Yes Central Line Lumen Inserted: triple Post Procedure: sutured in place, good blood return, all ports aspirated, flushed, capped and sterile dressing applied Post Procedure X-Ray: tip of catheter in good position and no pneumothorax seen Patient Tolerated Procedure: well and no complications Complications: none Intubation Time out performed: Yes sedative: Etomidate Mg Given: 20 paralytic: Rocuronium Mg Given: 75 Laryngoscope: Rolando ET Tube Size: 7.5 ET Tube Uncuffed: Yes Tube Secured Depth (cm): 22 Tube Secured Location: teeth Tube Placement Confirmation: visualized tube passing through cords, equal breath sounds bilaterally, no breath sounds over epigastrium and confirmation by capnometry Patient Tolerated Procedure: well and no complications Intubation Complications: none Critical Care Time Critical Care Time Critical Care Time: Yes Total Critical Care Time: 90 Attestation: repeat assessments, discussion with brother, calls for transfer, IVF, repeat IV medications for sedation I attest to this time spent taking care of the patient Discharge Plan Discharge Clinical Impression: Acute delirium Compression fx, lumbar spine Qualifiers: Encounter type: initial encounter Lumbar vertebra fracture level: L1 Qualified Code(s): S32.010A - Wedge compression fracture of first lumbar vertebra, initial encounter for closed fracture Altered mental status Qualifiers: Altered mental status type: delirium Qualified Code(s): R41.0 - Disorientation, unspecified Patient Disposition: Admitted As Inpatient
[2023-01-06] MEDS: PHENobarbitaL sodium 130 MG/ML IM ONCE 301.6 MG IM (15:45)
[2023-01-06] MEDS: PHENobarbitaL sodium 130 MG/ML VIAL IVPUSH (15:57)
--- NOTE | 2023-01-06 16:29 | PC.NURSE ---
patient has been uncooperative/combative not following commands Dr molina is aware, labs have been done however only able to get one set of blood cx
[2023-01-06 16:40] LABS: MANUAL DIFF FLAG NO
[2023-01-06] MEDS: Etomidate 20 MG/10 ML VIAL IVPUSH (16:40)
[2023-01-06 16:42] LABS: Basophils Absolute Auto 0.1 X10*3/uL (0.0-0.2); Basophils Percent Auto 0.4 % (0-2); Hematocrit 43.7 % (42.0-52.0); Hemoglobin 14.6 g/dl (14.0-18.0); Imm Gran Abs Auto 0.04 X10*3/uL (0.00-0.03); Imm Gran Pct Auto 0.3 % (0.0-0.4); Lymphocytes Percent Auto 7.3 % (20-40); Mean Corpuscular HGB Conc 33.4 g/dl (31.0-36.0); Mean Corpuscular Hemoglobin 31.1 pg (27.0-33.0); Monocytes Absolute Auto 0.4 X10*3/uL (0.1-1.2); Monocytes Percent Auto 3.2 % (2-11); Neutrophils Absolute Auto 11.6 x10*3/uL (2.0-8.3); Neutrophils Percent Auto 88.8 % (45-73); Platelet Count 305 X10*3/uL (160-400); Red Cell Distribution Width 13.3 % (11.0-16.0); White Blood Count 13.1 X10*3/uL (4.8-10.8)
[2023-01-06 16:45] LABS: VBG Base Excess 1.8 mmol/L; VBG HCO3 26 mmol/L (22-26); VBG pCO2 42 mmHg; VBG pO2 38 mmHg
[2023-01-06 16:47] LABS: Prothrombin Time 11.8 SEC (11.1-13.3)
[2023-01-06 16:47] LABS: Venous Blood Gas Refer to POC result
[2023-01-06 16:55] LABS: COVID-19 Test Negative (Negative); IDNOW Serial# BCCEAD1C
[2023-01-06 17:04] LABS: Ammonia 28 umol/L (13-55)
[2023-01-06 17:06] LABS: B Type Natriuretic Peptide 142 pg/mL (<100)
[2023-01-06 17:08] LABS: Lactic Acid 1.9 mmol/L (0.5-2.0)
[2023-01-06 17:10] LABS: Alanine Aminotransferase 10 U/L (0-40); Albumin Level 4.4 g/dL (3.5-5.0); Alkaline Phosphatase 86 U/L (39-117); Anion Gap 16 (12-20); Aspartate Amino Transferase 17 U/L (5-37); Bilirubin Direct 0.2 mg/dL (0.0-0.5); Bilirubin Total 0.5 mg/dL (0.0-1.0); Blood Urea Nitrogen 11 mg/dL (9-16); C Reactive Protein 0.23 mg/dL (< or = 0.50); Calcium 9.9 mg/dL (8.4-10.2); Carbon Dioxide 23 mmol/L (22-29); Chloride 104 mmol/L (96-108); Creatinine Clr Calc Pharmacy 85.1; Estimated Glomerular Filt Rate > 60; Glucose Random 108 mg/dL (60-115); Potassium 4.6 mmol/L (3.3-5.1); Sodium 138 mmol/L (135-145); Troponin-I High Sensitivity 12.9 ng/L (<3.5-35.0)
[2023-01-06 17:11] LABS: Acetaminophen LAB < 17 mcg/mL (<30); Salicylate < 5.0 mg/dL (15-30)
[2023-01-06 17:17] LABS: Ethanol < 10 mg/dL
[2023-01-06] MEDS: propofoL 1,000 MG/100 ML VIAL 15.84 MG IVCONT (17:22)
[2023-01-06 17:25] LABS: Procalcitonin 0.02 ng/mL
[2023-01-06] MEDS: fentaNYL citrate/NS 1,000 MCG/100 ML PLAST..BAG 2.5 MCG IVCONT ×2 (17:25→23:57)
[2023-01-06 17:26] LABS: TSH reflex Free T4 1.35 uIU/mL (0.32-4.0)
[2023-01-06 17:31] LABS: Lipase 19 U/L (8-78)
[2023-01-06] MEDS: propofoL 200 MG/20 ML VIAL 50 MG IVPUSH (17:38)
[2023-01-06] MEDS: Rocuronium Bromide 50 MG/5 ML VIAL 75 MG IVPUSH (17:41)
[2023-01-06] MEDS: cefTRIAXone sodium 2 GM in 0.9 % Sodium Chloride 50 ML IV (18:08)
[2023-01-06] MEDS: Midazolam HCl/NS 50 MG/50 ML PLAST..BAG IVCONT (18:15)
[2023-01-06] MEDS: Thiamine HCL 200 MG in 0.9 % Sodium Chloride 100 ML 204 MG IV (18:20)
[2023-01-06] MEDS: ondansetron HCL 4 MG/2 ML VIAL IVPUSH (18:20)
[2023-01-06 18:24] LABS: Appearance Urine Cloudy; Color Urine Yellow; Glucose Urine UA Negative (Negative); Leukocyte Esterase Urine Negative (Negative); Nitrite Urine Negative (Negative); UMIC TRIGGER UACC YES; Urine Blood Trace (Negative); Urine Ketones 15 mg/dL (Negative); Urine Protein 30 (1+) mg/dL (Neg-Trace)
[2023-01-06 18:26] LABS: Bacteria Urine None Seen (None Seen); Hyaline Casts Urine 0-2 /LPF (0-2); RBC Urine 0-2 /HPF (0-2); Squamous Epithelial Cell Urine 0-2 /HPF (0-2); WBC Urine 0-5 /HPF (0-5)
[2023-01-06 18:35] LABS: Amphetamine Screen Urine Not Detected (Not Detect); Barbiturates, Urine POSITIVE (Not Detect); Benzodiazepines Screen Urine Not Detected (Not Detect); Cannabinoid Screen Urine POSITIVE (Not Detect); Cocaine Screen Urine Not Detected (Not Detect); Fentanyl, urine Not Detected (Not Detect); Opiate Screen Urine Not Detected (Not Detect); Phencyclidine Screen Urine Not Detected (Not Detect)
--- NOTE | 2023-01-06 18:44 | PC.NURSE ---
1640 DECISION MADE TO INTUBATE PATIENT, DUE TO UNEXPLAINED AMS 7.5 EET 22 AT LIP. THICK BLOODY SECRETIONS. CURRENT SEDATION FENTYNAL/VERSED/PROPOFOL. 16FR TEMP SENSING MCLEAN IN PLACE TRIPLE LUMIN IJ PLACED BY DR GATES. 20 IN RIGHT FA, 20 LEFT HAND. STILL UNCLEAR WHAT AMS IS CAUSED FROM. BROTHER STATES HE IS NOT LIKE THIS JUST WAS OUT WITH FRIENDS ON WEDNESDAY.
[2023-01-06] MEDS: propofoL 200 MG/20 ML VIAL 100 MG IVPUSH (18:49)
[2023-01-06] MEDS: 0.9 % Sodium Chloride 1,000 ML 999 ML IV (19:22)
--- NOTE | 2023-01-06 19:39 | PC.NURSE ---
this RN assumed care of patient at 1900 . multiple medications not previously administered as ordered by previous RN. per pyxis ceftriaxone was pulled by previous RN but never scanned in computer or documented on. unsure if this medication was given to pt. vancomycin and acyclovir pulled from pyxis and to be administered per jun. pt currently on a fentanyl drip @100mcg/hr, versed running at 2mg/hr, and propofol running at 50mcg/kg/min. pt on a ventilator. on residential monitor, temp sensing cowan in place. pt has a #20g iv in the L hand, a #20g iv in the RFA, and a carotid artery central line. pt needs ICU hospitalization MD trying to transfer pt out. plan of care ongoing
[2023-01-06] MEDS: vancomycin/NS 2,000 MG/500 ML PLAST..BAG 250 MG IV (19:49)
[2023-01-06] MEDS: Pantoprazole Sodium 40 MG/10 ML VIAL IVPUSH (20:01)
--- NOTE | 2023-01-06 20:27 | PC.NURSE ---
worklist not completed by previous shift RN. this RN unable to complete worklist/obtain PMH at this time as pt is intubated on a ventilator.
[2023-01-06] MEDS: 0.9 % Sodium Chloride 1,000 ML 125 ML IVCONT (20:28)
--- NOTE | 2023-01-06 20:28 | PC.NURSE ---
Medicated pt per Jun, notified JANNET Grace, will continue to monitor.
--- NOTE | 2023-01-06 20:38 | PHA.MEDREC ---
Pharmacy Consult ? Medication Reconciliation Pharmacy has completed the medication reconciliation. Patient intubated, med rec completed by claim history. Crystal Guy, BrianD
[2023-01-06] MEDS: propofoL 1,000 MG/100 ML VIAL 26.4 MG IVCONT (22:08)
--- NOTE | 2023-01-06 22:14 | PC.NURSE ---
1st vial of propofol complete - propofol was running at 50mcg/kg/min since this RN took over care at 1900. however in mar there was no documentation by previous RN of titration up from starting dose of 30mcg/kg/min. 2nd vial started at previous infusion rate of 50mcg/kg/min. pt tolerating ventilation well. pt to go to ICU unit momentarily. waiting to call report to RN
--- NOTE | 2023-01-06 22:59 | P.HPCC_ITS ---
History of Present Illness Date of Service: 01/06/23 Attending physician on admission: Afshin Tam Chief Complaint: Altered mental status Mr. 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 His brother reports? that the patient was normal yesterday.? He reports no history of seizures, alcohol intake a few times a week, but he does smoke marijuana. On arrival to the emergency room, the patient's blood pressure 101/62, heart rate 115, temp 98.0. Laboratory data significant for WBC 13.1, CK 178, BNP 142. Electrolytes, renal function, and liver enzymes within normal limits. Amm normal at 28. TSH 1.35. Procalcitonin 0.02. UA neg. Urine drug screen positive for THC. Imaging:? CT/CT cervical spine wo IV con / CT/CT head/brain wo IV con 1. No acute intracranial pathology. 2. There is paranasal sinusitis. CT/CT abdomen pelvis wo IV con / CT/CT chest wo IV con 1. A cause for the cough and vomiting has not been found. 2. Incidental note made of ET tube in good position, NG tube in stomach, extensive colonic diverticulosis without diverticulitis and degenerative changes in the spine with compression fractures as described above. XR/XR chest 1V 1. Support tubes and catheters are positioned, as detailed. No pneumothorax is seen. 2. No focal infiltrate or congestive heart failure is seen. ED COURSE: ? Patient became significantly agitated, attempting to grab staff, thrashing and kicking.? He was given lorazepam, Zyprexa, and phenobarbital.? He did not respond to medications. ? He was sedated? with propofol and fentanyl and intubated.? Versed drip was added for continued agitation. He was given thiamine, Protonix, ceftriaxone, acyclovir. Review of Systems 2 Review of Systems: Yes unobtainable due to endotracheal tube PMFSH Past Medical History Medical History HTN (hypertension) Aortic regurgitation Ascending aorta enlargement Family History Family History Father Smoker Lung cancer Mother No problems noted. Brother No problems noted. Sister No problems noted. Surgical History Surgical History No pertinent past surgical history Social History Social History Household Members: None Housing: House Unable to assess alcohol history related to: Unable to respond Alcohol intake: current Alcohol intake frequency: a few times a week Patient Tobacco Use Status: Never used Tobacco Years Smoked: unknown e-Cigarette/Vaping Use: Never Used Use of substances other than those prescribed or required for medical reasons: Unknown Substance Use Type: Marijuana Last Used Substance: Unknown Spiritual Healthcare Practices: unknown Gnosticism Healthcare Practices: unknown Cultural Healthcare Practices: unknown Advance Directives: No Advance Directives Information Provided: No Nutrition Risks: On aspiration precautions Poor oral hygiene: Yes Current occupational status: employed Cognitive needs: No Hearing needs: No Vision needs: Yes Meds Allergies Allergy/AdvReac Type Severity Reaction Status Date / Time No Known Allergies Allergy Verified 09/21/22 08:46 Active Medications: Current Medications Chlorhexidine Gluconate (Chlorhexidine Gluc Oral Rinse 15 Ml Mouthwash) 15 ml BUCCAL Q8H HAWA Heparin Sodium (Porcine) (Heparin Sodium,Porcine 5,000 Unit/Ml Vial) 5,000 unit SUBCUT Q8H HAWA Propofol (Diprivan) 1,000 mg in 100 mls @ 0 mls/hr IVCONT .Q0M HAWA; Protocol Last Admin: 01/06/23 22:08 Dose: 50 mcg/kg/min, 26.4 mls/hr Fentanyl (Sublimaze/Ns) 1,000 mcg in 100 mls @ 0 mls/hr IVCONT .Q0M HAWA; Protocol Last Admin: 01/06/23 17:25 Dose: 25 mcg/hr, 2.5 mls/hr Midazolam HCl (Versed) 50 mg in 50 mls @ 2 mls/hr IVCONT .Q24H HAWA Last Admin: 01/06/23 18:15 Dose: 2 mg/hr, 2 mls/hr Sodium Chloride (Ns) 1,000 mls @ 125 mls/hr IVCONT .Q8H HAWA Last Admin: 01/06/23 20:28 Dose: 125 mls/hr Naloxone HCl (Naloxone Hcl 0.4 Mg/Ml Vial) 0.2 mg IVPUSH Q2M PRN PRN Reason: Excessive sedation or RR < 8 Pantoprazole Sodium (Pantoprazole Sodium 40 Mg/10 Ml Vial) 40 mg IVPUSH DAILY@0630 [facility] Physical Exam 2 Vital Signs: Vital Signs: Last Vital Signs Temp 98.4 F 01/06/23 22:44 Pulse 81 01/06/23 22:44 Resp 18 01/06/23 22:44 BP 106/64 01/06/23 22:44 Pulse Ox 96 01/06/23 22:44 O2 Del Method Room Air 01/06/23 22:44 FiO2 28 01/06/23 20:27 BMI result Body Mass Index 27.1 Const: General: no acute distress Nutritional Appearance: obese HEENT: Head: Yes normocephalic and Yes atraumatic General nose exam: Normal external nose present (Nares patent, septum midline, sinuses nontender bilaterally.) Mouth: Normal oral and palatal mucosa present (No thrush, tongue in midline, mucosa moist.) Teeth and gingiva: poor dentition Neck: Neck: Yes supple (no thyromegaly, trachea midline.) Carotids: normal carotid upstroke Resp: Auscultation: clear to auscultation bilaterally (normal work of breathing, no accessory muscle use) Cardio: Jugular venous distension: no JVD Rate: regular rate Rhythm: r egular rhythm Heart sounds: no gallops, no murmurs and no rubs Peripheral pulses: Peripheral pulses 2+ throughout GI: Palpation (GI): Soft to palpation (nondistended.) and nontender A uscultation: normal bowel sounds Skin: Rashes: rashes noted (fungal rash groin and bilateral upper thighs) N ails: yellow and thickened Extrem: General: Yes full ROM, Yes capillary refill normal and Yes no clubbing, cyanosis or edema Results Labs 01/07/23 05:19 01/07/23 05:19 Labs: Laboratory Results - last 24 hr 01/06/23 01/06/23 01/06/23 16:33 16:34 16:39 MCV 93.0 MCH 31.1 MCHC 33.4 RDW 13.3 Plt Count 305 MPV 9.0 L Immature Gran % (Auto) 0.3 Neut % (Auto) 88.8 H Lymph % (Auto) 7.3 L [place] % (Auto) 3.2 Eos % (Auto) 0.0 Baso % (Auto) 0.4 Lymph # (Auto) 1.0 L [place] # (Auto) 0.4 Eos # (Auto) 0.0 Baso # (Auto) 0.1 Abs Immat Gran (auto) 0.04 H Absolute Neuts (auto) 11.6 H Absolute Nucleated RBC 0.000 Nucleated RBC % (auto) 0.0 PT 11.8 INR 1.0 VBG pH 7.40 VBG pCO2 42 VBG pO2 38 VBG HCO3 26 VBG O2 Saturation 60.0 VBG Base Excess 1.8 Anion Gap 16 Estim Creat Clear Calc 85.1 Estimated GFR > 60 Random Glucose 108 Lactic Acid 1.9 Calcium 9.9 D Magnesium 2.0 Total Bilirubin 0.5 Direct Bilirubin 0.2 AST 17 ALT 10 Alkaline Phosphatase 86 Ammonia 28 Total Creatine Kinase 178 H C-Reactive Protein 0.23 B-Natriuretic Peptide 142 H Total Protein 8.0 Albumin 4.4 Lipase 19 Procalcitonin 0.02 TSH 1.35 Urine Color Urine Appearance Urine pH Ur Specific [place] Urine Protein Urine Glucose (UA) Urine Ketones Urine Blood Urine Nitrite Ur Leukocyte Esterase Urine RBC Urine WBC Ur Squamous Epith Cells Urine Bacteria Hyaline Casts Salicylates < 5.0 L Urine Opiates Screen Urine Fentanyl Screen Acetaminophen < 17 Ur Barbiturates Screen Ur Phencyclidine Scrn Ur Amphetamines Screen U Benzodiazepines Scrn Urine Cocaine Screen U Marijuana (THC) Screen Ethyl Alcohol < 10 COVID-19 (RONDA) Negative COVID-19 Clin Com See Note 01/06/23 18:14 MCV MCH MCHC RDW Plt Count MPV Immature Gran % (Auto) Neut % (Auto) Lymph % (Auto) [place] % (Auto) Eos % (Auto) Baso % (Auto) Lymph # (Auto) [place] # (Auto) Eos # (Auto) Baso # (Auto) Abs Immat Gran (auto) Absolute Neuts (auto) Absolute Nucleated RBC Nucleated RBC % (auto) PT INR VBG pH VBG pCO2 VBG pO2 VBG HCO3 VBG O2 Saturation VBG Base Excess Anion Gap Estim Creat Clear Calc Estimated GFR Random Glucose Lactic Acid Calcium Magnesium Total Bilirubin Direct Bilirubin AST ALT Alkaline Phosphatase Ammonia Total Creatine Kinase C-Reactive Protein B-Natriuretic Peptide Total Protein Albumin Lipase Procalcitonin TSH Urine Color Yellow Urine Appearance Cloudy Urine pH 5.0 Ur Specific [place] 1.020 Urine Protein 30 (1+) H Urine Glucose (UA) Negative Urine Ketones 15 Urine Blood Trace H Urine Nitrite Negative Ur Leukocyte Esterase Negative Urine RBC 0-2 Urine WBC 0-5 Ur Squamous Epith Cells 0-2 Urine Bacteria None Seen Hyaline Casts 0-2 Salicylates Urine Opiates Screen Not Detected Urine Fentanyl Screen Not Detected Acetaminophen Ur Barbiturates Screen POSITIVE H Ur Phencyclidine Scrn Not Detected Ur Amphetamines Screen Not Detected U Benzodiazepines Scrn Not Detected Urine Cocaine Screen Not Detected U Marijuana (THC) Screen POSITIVE H Ethyl Alcohol COVID-19 (RONDA) COVID-19 Clin Com Imaging Radiologist's Impressions: Impressions Cervical Spine CT 01/06/23 17:40 IMPRESSION: 1. No acute intracranial pathology. 2. There is paranasal sinusitis. EXAMINATION: CT CERVICAL SPINE WITHOUT CONTRAST CLINICAL INFORMATION: Neck pain status-post trauma. COMPARISON: None available. TECHNIQUE: Contiguous axial imaging was performed through the cervical spine without intravenous administration of contrast. Multiplanar reformatted images are submitted. This CT examination was performed using dose optimization techniques as appropriate, variously including the following: *Automated exposure control *Adjustment of mA and/or kV according to patient size (this includes techniques or standardized protocols for targeted exams where dose is matched to indication/reason for exam; i.e. extremities or head) *Use of iterative reconstruction technique DLP: As above FINDINGS: Vertebral body heights and alignment are normal. At C3-C4, there is minimal vacuum disc phenomenon. At C5-C6, there is moderately severe disc space narrowing. At C6-C7, there is moderate disc space narrowing, with vacuum disc phenomenon. No acute fracture or spondylolisthesis is seen. This multi-level cervical spondylosis. The dens is intact. No prevertebral soft tissue swelling is seen. The bilateral lung apices are clear. IMPRESSION: 1. No acute fracture or spondylolisthesis is seen. 2. There is multi-level cervical degenerative disc disease, spondylosis and facet arthropathy. Degenerative disc disease is most pronounced at C5-C6, where it is moderately severe. Fleischner guidelines were followed. Head CT 01/06/23 17:40 IMPRESSION: 1. No acute intracranial pathology. 2. There is paranasal sinusitis. EXAMINATION: CT CERVICAL SPINE WITHOUT CONTRAST CLINICAL INFORMATION: Neck pain status-post trauma. COMPARISON: None available. TECHNIQUE: Contiguous axial imaging was performed through the cervical spine without intravenous administration of contrast. Multiplanar reformatted images are submitted. This CT examination was performed using dose optimization techniques as appropriate, variously including the following: *Automated exposure control *Adjustment of mA and/or kV according to patient size (this includes techniques or standardized protocols for targeted exams where dose is matched to indication/reason for exam; i.e. extremities or head) *Use of iterative reconstruction technique DLP: As above FINDINGS: Vertebral body heights and alignment are normal. At C3-C4, there is minimal vacuum disc phenomenon. At C5-C6, there is moderately severe disc space narrowing. At C6-C7, there is moderate disc space narrowing, with vacuum disc phenomenon. No acute fracture or spondylolisthesis is seen. This multi-level cervical spondylosis. The dens is intact. No prevertebral soft tissue swelling is seen. The bilateral lung apices are clear. IMPRESSION: 1. No acute fracture or spondylolisthesis is seen. 2. There is multi-level cervical degenerative disc disease, spondylosis and facet arthropathy. Degenerative disc disease is most pronounced at C5-C6, where it is moderately severe. Fleischner guidelines were followed. Abdomen/Pelvis CT 01/06/23 17:47 IMPRESSION: 1. A cause for the cough and vomiting has not been found. 2. Incidental note made of ET tube in good position, NG tube in stomach, extensive colonic diverticulosis without diverticulitis and degenerative changes in the spine with compression fractures as described above. Fleischner guidelines were followed. Chest CT 01/06/23 17:47 IMPRESSION: 1. A cause for the cough and vomiting has not been found. 2. Incidental note made of ET tube in good position, NG tube in stomach, extensive colonic diverticulosis without diverticulitis and degenerative changes in the spine with compression fractures as described above. Fleischner guidelines were followed. Chest X-Ray 01/06/23 18:56 IMPRESSION: 1. Support tubes and catheters are positioned, as detailed. No pneumothorax is seen. 2. No focal infiltrate or congestive heart failure is seen. 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 Plan: Neuro:? encephalopathy,? origin unknown, possibly ETOH withdrawal. Cardiac: ? No acute issues Pulmonary: ? No acute issues. Renal:? no acute issues Endo:? No acute issues.? GI:? No acute issues. ID:? No acute issues.? WBC 13.1.? CT of the head, abd, chest negative other than sinusitis? and L1 compression fracture.? No evidence of sepsis. Blood cultures pending. Heme/Onc:? No acute issues. Psych: Acute delirium. Miscellaneous:? No acute issues. Prophylaxis:? Heparin, PPI Diet:? NPO? Time Spent With Patient Time: Total time managing care of this patient today ____ minutes.
[2023-01-07] VITALS (47 sets, daily range): BP systolic 81–156; BP diastolic 46–90; PULSE 72–111; RESP 9–18; TEMP 35–37.7; O2SAT 89–97; BMI 27.8; BMI 28.1
[2023-01-07] MEDS: Heparin Sodium,Porcine 5,000 UNIT/ML VIAL 5000 UNIT SUBCUT ×2 (00:33→05:15)
[2023-01-07] MEDS: Chlorhexidine Gluc Oral Rinse 15 ML MOUTHWASH BUCCAL ×2 (00:33→05:15)
--- NOTE | 2023-01-07 00:51 | PC.NURSE ---
PT TO ICU AT 2250 FROM ER INTUBATED ON VENTILATOR. PT IS UNRESPONSIVE, PUPILS PINPOINT, DOES NOT OPEN EYES OR FOLLOW COMMANDS, DOES NOT MOVE EXTREMITIES. PROPOFOL AT 50 MCG, FENTANYL AT 25 MCG AND VERSED AT 2 MG. BP 96/56 ON ARRIVAL TO ICU BUT DROPPED TO 80'S SYSTOLIC. AT THIS TIME PROPOFOL WAS PAUSED AND THEN RESTARTED AT 10 MCG AND FENTANYL SHUT OFF. WITHIN MINUTES, PT STARTED TO WAKE UP AND BIT THE ETT AND PROPOFOL WAS TITRATED UP TO 50 MCG. BP CURRENTLY IS 115/71. MONITOR SHOWS NSR, RATE 70'S, NO ECTOPY. U/O APPROXIMATELY 30 ML IN BAG. PHYSICAL ASSESSMENT PERFORMED AND NOTED ON ADMISSION ASSESSMENT. ABRASIONS NOTED TO LEFT KNEE AND RIGHT GONZALEZ. FUNGAL RASH NOTED IN GROIN.
[2023-01-07] MEDS: propofoL 1,000 MG/100 ML VIAL 15.84 MG IVCONT (02:06)
[2023-01-07] MEDS: Albuterol/Iprat 2.5/0.5MG 3 ML AMPUL.NEB INHALE ×5 (02:51→19:33)
[2023-01-07 03:49] LABS: Lactic Acid 1.1 mmol/L (0.5-2.0)
--- NOTE | 2023-01-07 04:26 | PC.NURSE ---
Acquired care at 0000. Pt is sedated and intubated. with 7.5 size of ET tube,23 to the lip. On AC vent settings with TV 500, PEEP o 5, 21% FiO2. Low BP. Propofol drip titrated down to 10 mcg/hr bec BP is soft. Around 4am, O2 sats starts to drop to 88%. MD notified. Versed was on hold and so with fentanyl. O2 adjusted to 40% FiO2. Pt remains comfortable this time.
[2023-01-07] MEDS: Pantoprazole Sodium 40 MG/10 ML VIAL IVPUSH (05:15)
[2023-01-07 05:27] LABS: VBG Base Excess -1.4 mmol/L; VBG HCO3 21 mmol/L (22-26); VBG pCO2 29 mmHg; VBG pH 7.46 (7.32-7.43); VBG pO2 53 mmHg
[2023-01-07 05:28] LABS: Venous Blood Gas Refer to POC result
[2023-01-07 05:36] LABS: MANUAL DIFF FLAG NO
[2023-01-07 05:39] LABS: Basophils Percent Auto 0.4 % (0-2); Eosinophils Absolute Auto 0.2 X10*3/uL (0.0-0.4); Eosinophils Percent Auto 2.3 % (0-4); Hematocrit 36.6 % (42.0-52.0); Hemoglobin 12.3 g/dl (14.0-18.0); Imm Gran Abs Auto 0.03 X10*3/uL (0.00-0.03); Imm Gran Pct Auto 0.3 % (0.0-0.4); Lymphocytes Absolute Auto 1.8 X10*3/uL (1.2-4.9); Mean Corpuscular HGB Conc 33.6 g/dl (31.0-36.0); Mean Corpuscular Hemoglobin 30.6 pg (27.0-33.0); Mean Platelet Volume 8.8 fL (9.4-12.4); Monocytes Absolute Auto 0.7 X10*3/uL (0.1-1.2); Monocytes Percent Auto 6.8 % (2-11); Neutrophils Absolute Auto 7.3 x10*3/uL (2.0-8.3); Neutrophils Percent Auto 72.2 % (45-73); Platelet Count 263 X10*3/uL (160-400); Red Blood Count 4.02 X10*6/uL (4.60-5.80); Red Cell Distribution Width 13.3 % (11.0-16.0); White Blood Count 10.2 X10*3/uL (4.8-10.8)
[2023-01-07 05:59] LABS: Albumin Level 3.5 g/dL (3.5-5.0); Anion Gap 15 (12-20); Blood Urea Nitrogen 10 mg/dL (9-16); Calcium 8.7 mg/dL (8.4-10.2); Carbon Dioxide 18 mmol/L (22-29); Chloride 109 mmol/L (96-108); Creatinine Clr Calc Pharmacy 90.3; Estimated Glomerular Filt Rate > 60; Glucose Random 91 mg/dL (60-115); Magnesium 1.8 mg/dL (1.6-2.6); Phosphorus 2.9 mg/dL (2.7-4.5); Potassium 2.9 mmol/L (3.3-5.1); Sodium 139 mmol/L (135-145)
[2023-01-07 09:25] LABS: Adenovirus PCR Not Detected (Not Detect.); Bordetella parapertussis PCR Not Detected (Not Detect.); Bordetella pertussis PCR Not Detected (Not Detect.); Chlamydia pneumoniae PCR Not Detected (Not Detect.); Coronavirus 229E PCR Not Detected (Not Detect.); Coronavirus HKU1 PCR Not Detected (Not Detect.); Coronavirus NL63 PCR Not Detected (Not Detect.); Coronavirus OC43 PCR Not Detected (Not Detect.); Human metapneumovirus PCR Not Detected (Not Detect.); Influenza A PCR Not Detected (Not Detect.); Influenza B PCR Not Detected (Not Detect.); Mycoplasma pneumoniae PCR Not Detected (Not Detect.); Parainfluenza 1 PCR Not Detected (Not Detect.); Parainfluenza 2 PCR Not Detected (Not Detect.); Parainfluenza 3 PCR Not Detected (Not Detect.); Parainfluenza 4 PCR Not Detected (Not Detect.); RSV PCR Not Detected (Not Detect.); Rhino/Enterovirus PCR Not Detected (Not Detect.)
[2023-01-07 09:40] LABS: SARS-CoV-2 PCR Not Detected (Not Detect.)
[2023-01-07] MEDS: Nystatin Cream 15 GM TUBE 1 APPL TOPICAL ×2 (09:45→20:14)
--- NOTE | 2023-01-07 11:12 | PM.CCPN ---
Subjective Subjective Date of Service: 01/07/23 Interval History: A 72-year-old male presented with agitated delirium in the only toxicology positive was marijuana otherwise he just an underlying hypertensive and not much other history He was never febrile but was given empiric antibiotics upon entry and intubated for airway protection and apparently there was sedating him and took quite a bit of medication to finally settle him down from his agitated state and that included Versed and phenobarb and Zyprexa eventually a Versed drip and propofol Did very well overnight slept comfortably only has a 6 L minute ventilatory requirement FiO2 this morning down to 40% with a little bit more in the way of right basilar atelectasis but can not completely rule out the possibility of an infiltrate potentially from an aspiration blood pressure is marginal but there on supported and they fell briefly when we try to temporize with dexmedetomidine and we stop that and gave him 500 cc of saline and that straightened out breathing comfortably with a very mild end expiratory wheeze for which we continue the albuterol therapy UA gained awakened appropriately with good cognitive function nonfocal neurologic bedside echo revealed normal left ventricular systolic wall motion globally ejection fraction at least 60% normal right ventricle no primary valve or pericardial disease normal IVC diameter and very short pressure support weaning trial from the ventilator with superb tidal volumes and he was successfully extubated doing very well as we observe and I think were ready to go upstairs to regular floor as I have spoken to the hospitalist Critical Care Time (minutes): 45 Physical Exam Vital Signs: Vital Signs: Last Vital Signs Temp 99.5 F 01/07/23 10:00 Pulse 80 01/07/23 11:00 Resp 15 01/07/23 11:00 BP 102/65 01/07/23 11:00 Pulse Ox 95 01/07/23 11:00 O2 Del Method Nasal Cannula 01/07/23 11:00 O2 Flow Rate 2 01/07/23 11:00 FiO2 40 01/07/23 09:28 BMI result Body Mass Index 28.1 Doing very well respiratory rate is comfortable no significant diaphragmatic effort no no use of accessory muscles but the end-tidal CO2 curve shows an obstructive pattern so we continue albuterol Bedside echo defining normal LV and RV function Abdomen soft with no organomegaly No lymphadenopathy and he has good bilateral carotid upstrokes no bruits no neck vein distension Objective Data Labs 01/07/23 05:19 01/07/23 05:19 Labs: Laboratory Results - last 24 hr 01/06/23 01/06/23 01/06/23 16:33 16:34 16:39 WBC 13.1 H RBC 4.70 Hgb 14.6 Hct 43.7 MCV 93.0 MCH 31.1 MCHC 33.4 RDW 13.3 Plt Count 305 MPV 9.0 L Immature Gran % (Auto) 0.3 Neut % (Auto) 88.8 H Lymph % (Auto) 7.3 L [place] % (Auto) 3.2 Eos % (Auto) 0.0 Baso % (Auto) 0.4 Lymph # (Auto) 1.0 L [place] # (Auto) 0.4 Eos # (Auto) 0.0 Baso # (Auto) 0.1 Abs Immat Gran (auto) 0.04 H Absolute Neuts (auto) 11.6 H Absolute Nucleated RBC 0.000 Nucleated RBC % (auto) 0.0 PT 11.8 INR 1.0 VBG pH 7.40 VBG pCO2 42 VBG pO2 38 VBG HCO3 26 VBG O2 Saturation 60.0 VBG Base Excess 1.8 Sodium 138 Potassium 4.6 Chloride 104 Carbon Dioxide 23 Anion Gap 16 BUN 11 Creatinine 0.86 Estim Creat Clear Calc 85.1 Estimated GFR > 60 Random Glucose 108 Lactic Acid 1.9 Calcium 9.9 D Phosphorus Magnesium 2.0 Total Bilirubin 0.5 Direct Bilirubin 0.2 AST 17 ALT 10 Alkaline Phosphatase 86 Ammonia 28 Total Creatine Kinase 178 H Troponin I High Sens 12.9 C-Reactive Protein 0.23 B-Natriuretic Peptide 142 H Total Protein 8.0 Albumin 4.4 Lipase 19 Procalcitonin 0.02 TSH 1.35 Urine Color Urine Appearance Urine pH Ur Specific [place] Urine Protein Urine Glucose (UA) Urine Ketones Urine Blood Urine Nitrite Ur Leukocyte Esterase Urine RBC Urine WBC Ur Squamous Epith Cells Urine Bacteria Hyaline Casts Salicylates < 5.0 L Urine Opiates Screen Urine Fentanyl Screen Acetaminophen < 17 Ur Barbiturates Screen Ur Phencyclidine Scrn Ur Amphetamines Screen U Benzodiazepines Scrn Urine Cocaine Screen U Marijuana (THC) Screen Ethyl Alcohol < 10 Respiratory Panel [place] Adenovirus (Rapid PCR) B.pert (TEM-PCR) B.parapertussis DNA PCR C. pneumoniae DNA (PCR) Coronavirus OC43 (PCR) Coronavirus HKU1 (PCR) Coronavirus 229E (PCR) COVID-19 (RONDA) Negative COVID-19 Clin Com See Note Coronavirus NL63 (PCR) Human Metapneumovir PCR Influenza A (RT-PCR) Influenza B (RT-PCR) M. pneumoniae (PCR) Parainfluenza 1 (PCR) Parainfluenza 2 (PCR) Parainfluenza 3 (PCR) Parainfluenza 4 (PCR) RSV (PCR) Entero/Rhino (PCR) SARS-CoV-2 RNA (RT-PCR) 01/06/23 01/07/23 01/07/23 18:14 03:26 05:19 WBC 10.2 RBC 4.02 L Hgb 12.3 L Hct 36.6 L MCV 91.0 MCH 30.6 MCHC 33.6 RDW 13.3 Plt Count 263 MPV 8.8 L Immature Gran % (Auto) 0.3 Neut % (Auto) 72.2 Lymph % (Auto) 18.0 L [place] % (Auto) 6.8 Eos % (Auto) 2.3 Baso % (Auto) 0.4 Lymph # (Auto) 1.8 [place] # (Auto) 0.7 Eos # (Auto) 0.2 Baso # (Auto) 0.0 Abs Immat Gran (auto) 0.03 Absolute Neuts (auto) 7.3 Absolute Nucleated RBC 0.000 Nucleated RBC % (auto) 0.0 PT INR VBG pH VBG pCO2 VBG pO2 VBG HCO3 VBG O2 Saturation VBG Base Excess Sodium 139 Potassium 2.9 L D Chloride 109 H Carbon Dioxide 18 L Anion Gap 15 BUN 10 Creatinine 0.81 Estim Creat Clear Calc 90.3 Estimated GFR > 60 Random Glucose 91 Lactic Acid 1.1 Calcium 8.7 D Phosphorus 2.9 Magnesium 1.8 Total Bilirubin Direct Bilirubin AST ALT Alkaline Phosphatase Ammonia Total Creatine Kinase Troponin I High Sens C-Reactive Protein B-Natriuretic Peptide Total Protein Albumin 3.5 Lipase Procalcitonin TSH Urine Color Yellow Urine Appearance Cloudy Urine pH 5.0 Ur Specific [place] 1.020 Urine Protein 30 (1+) H Urine Glucose (UA) Negative Urine Ketones 15 Urine Blood Trace H Urine Nitrite Negative Ur Leukocyte Esterase Negative Urine RBC 0-2 Urine WBC 0-5 Ur Squamous Epith Cells 0-2 Urine Bacteria None Seen Hyaline Casts 0-2 Salicylates Urine Opiates Screen Not Detected Urine Fentanyl Screen Not Detected Acetaminophen Ur Barbiturates Screen POSITIVE H Ur Phencyclidine Scrn Not Detected Ur Amphetamines Screen Not Detected U Benzodiazepines Scrn Not Detected Urine Cocaine Screen Not Detected U Marijuana (THC) Screen POSITIVE H Ethyl Alcohol Respiratory Panel [place] Adenovirus (Rapid PCR) B.pert (TEM-PCR) B.parapertussis DNA PCR C. pneumoniae DNA (PCR) Coronavirus OC43 (PCR) Coronavirus HKU1 (PCR) Coronavirus 229E (PCR) COVID-19 (RONDA) COVID-19 Clin Com Coronavirus NL63 (PCR) Human Metapneumovir PCR Influenza A (RT-PCR) Influenza B (RT-PCR) M. pneumoniae (PCR) Parainfluenza 1 (PCR) Parainfluenza 2 (PCR) Parainfluenza 3 (PCR) Parainfluenza 4 (PCR) RSV (PCR) Entero/Rhino (PCR) SARS-CoV-2 RNA (RT-PCR) 01/07/23 01/07/23 05:22 05:38 WBC RBC Hgb Hct MCV MCH MCHC RDW Plt Count MPV Immature Gran % (Auto) Neut % (Auto) Lymph % (Auto) [place] % (Auto) Eos % (Auto) Baso % (Auto) Lymph # (Auto) [place] # (Auto) Eos # (Auto) Baso # (Auto) Abs Immat Gran (auto) Absolute Neuts (auto) Absolute Nucleated RBC Nucleated RBC % (auto) PT INR VBG pH 7.46 H VBG pCO2 29 VBG pO2 53 VBG HCO3 21 L VBG O2 Saturation 84.0 VBG Base Excess -1.4 Sodium Potassium Chloride Carbon Dioxide Anion Gap BUN Creatinine Estim Creat Clear Calc Estimated GFR Random Glucose Lactic Acid Calcium Phosphorus Magnesium Total Bilirubin Direct Bilirubin AST ALT Alkaline Phosphatase Ammonia Total Creatine Kinase Troponin I High Sens C-Reactive Protein B-Natriuretic Peptide Total Protein Albumin Lipase Procalcitonin TSH Urine Color Urine Appearance Urine pH Ur Specific [place] Urine Protein Urine Glucose (UA) Urine Ketones Urine Blood Urine Nitrite Ur Leukocyte Esterase Urine RBC Urine WBC Ur Squamous Epith Cells Urine Bacteria Hyaline Casts Salicylates Urine Opiates Screen Urine Fentanyl Screen Acetaminophen Ur Barbiturates Screen Ur Phencyclidine Scrn Ur Amphetamines Screen U Benzodiazepines Scrn Urine Cocaine Screen U Marijuana (THC) Screen Ethyl Alcohol Respiratory Panel [place] See Note Adenovirus (Rapid PCR) Not Detected B.pert (TEM-PCR) Not Detected B.parapertussis DNA PCR Not Detected C. pneumoniae DNA (PCR) Not Detected Coronavirus OC43 (PCR) Not Detected Coronavirus HKU1 (PCR) Not Detected Coronavirus 229E (PCR) Not Detected COVID-19 (RONDA) COVID-19 Clin Com Coronavirus NL63 (PCR) Not Detected Human Metapneumovir PCR Not Detected Influenza A (RT-PCR) Not Detected Influenza B (RT-PCR) Not Detected M. pneumoniae (PCR) Not Detected Parainfluenza 1 (PCR) Not Detected Parainfluenza 2 (PCR) Not Detected Parainfluenza 3 (PCR) Not Detected Parainfluenza 4 (PCR) Not Detected RSV (PCR) Not Detected Entero/Rhino (PCR) Not Detected SARS-CoV-2 RNA (RT-PCR) Not Detected Progress Note: A&P Assessment and plan (1) Altered mental status: Status: Acute (2) Compression fx, lumbar spine: Status: Acute (3) Acute delirium: Status: Acute (4) Anemia: Status: Acute (5) HTN (hypertension): Status: Acute (6) Ascending aorta enlargement: Status: Acute (7) Aortic regurgitation: Status: Acute Plan At this point cognitive function is restored and delirium is resolved and plan is to transfer upstairs to the floor continue respiratory treatments in observation and just make sure cognitive cognitive function continues to restore Quality Stroke Does the patient have a stroke diagnosis?: No VTE Prior VTE?: No VTE Risk Level:: Medical - moderate - high VTE Device Contraindication: N/A - Device Ordered VTE Drug Contraindication: N/A - Med Ordered
--- NOTE | 2023-01-07 12:57 | PM.EVENT ---
Event Note Date of Service: 01/07/23 Event Note: 72-year-old male with a past medical history of hypertension, ascending aorta enlargement 4.1 cm, and anemia who was brought in by ambulance today after being found down, agitated, aggressive, and incontinent, surrounded by beer cans and vomit.? His brother reports? that the patient was normal yesterday.? He reports no history of seizures, alcohol intake a few times a week, but he does smoke marijuana. On arrival to the emergency room, the patient's blood pressure 101/62, heart rate 115, temp 98.0. CT cervical spine and CT head and brain was unremarkable, chest x-ray showed no focal infiltrate Echo showed normal EF no pericardial disease Laboratory data significant for WBC 13.1, CK 178, BNP 142. Electrolytes, renal function, and liver enzymes within normal limits. Amm normal at 28. TSH 1.35. Procalcitonin 0.02. UA neg. Urine drug screen positive for THC. In emergency room Patient became significantly agitated, attempting to grab staff, thrashing and kicking.? He was given lorazepam, Zyprexa, and phenobarbital.? He did not respond to medications. ? He was sedated? with propofol and fentanyl and intubated.?He was given thiamine, Protonix, ceftriaxone, acyclovir. Patient transferred from ICU passed swallow eval will resume diet BP soft will hold antihypertensive Acute toxic metabolic encephalopathy/acute delirium likely due to marijuana/alcohol intoxication Hypertension Ascending aorta enlargement/aortic regurgitation Acute anemia likely dilutional Acute hypokalemia will replace and follow labs. Time Spent With Patient Time: Total time managing care of this patient today ____ minutes.
--- NOTE | 2023-01-07 14:37 | PC.NURSE ---
Shift eval 7a-12:50pm. Report received that sedation vacation started at approx 0630. Patient started to become agitated and attempting to pull on restraints at approx 0730. RT was at bedside as well as Dr Tam. Attempted to assess mental status, unable to follow directions. Large amt of secretions obtained via in-line suctioning. Order for presedex by Dr Tam - started at 0741. Titrated down & off r/t BP being low (SBP 80's) - see JUN. RR downt to 8 or 9 - RT at bedside - changed over to resting settings & 500ml bolus ordered by Dr Tam & given @ 0852. @ approx 0930 pressure support retried - tolerated & patient eyes opened, followed simple directions. Order to extubate by Dr Tam. This RN & RT at bedside successfully extubated patient @ 0950 - no stridor noted. Swallow eval passed. TLC & cowan removed per MD order. Transfer to Med-surg @ 1250 - report given to Jessica POWER.
--- NOTE | 2023-01-07 14:57 | MHC.CM.PN ---
IMM 01/07. Pt admitted with dx altered mental status. Pt lived alone and was self-care prior to admission. D/C plan is to return home self-care vs with services. Pts sister or brother can transport him home. No HCP on file, offered to assist, declined at this time. PCP: Wesley Garcia
--- NOTE | 2023-01-07 15:01 | MHC.CM.PN ---
IMM 01/07. Pt admitted with dx altered mental status. CM intake assessment completed with the assistance of pts sister who was present at bedside, as pt was still groggy and unsure of some answers. Pt lived alone and was self-care prior to admission. D/C plan is to return home self-care vs with services. Pts sister or brother can transport him home. No HCP on file, offered to assist, declined at this time. PCP: Wesley Garcia
[2023-01-08] VITALS (9 sets, daily range): BP systolic 137–168; BP diastolic 62–88; PULSE 71–99; RESP 16–20; TEMP 36.5–36.8; O2SAT 95–111; BMI 27.5
[2023-01-08 07:48] LABS: Anion Gap 16 (12-20); Blood Urea Nitrogen 7 mg/dL (9-16); Calcium 8.9 mg/dL (8.4-10.2); Carbon Dioxide 20 mmol/L (22-29); Chloride 108 mmol/L (96-108); Creatinine Clr Calc Pharmacy 89.2; Estimated Glomerular Filt Rate > 60; Glucose Random 90 mg/dL (60-115); Potassium 3.3 mmol/L (3.3-5.1); Sodium 141 mmol/L (135-145)
[2023-01-08] MEDS: Albuterol/Iprat 2.5/0.5MG 3 ML AMPUL.NEB INHALE ×4 (07:50→21:37)
[2023-01-08] MEDS: Nystatin Cream 15 GM TUBE 1 APPL TOPICAL (08:32)
--- NOTE | 2023-01-08 14:34 | MHC.CM.PN ---
per rounds pt to have pt eval to determine dc plan pt receommended home w/family support dc plan home no services
--- NOTE | 2023-01-08 16:09 | MHC.RECOVRN ---
Met with pt in 370 after consult placed to Addiction Medicine for alcohol use. Pt reports drinking 6 beers daily, some days up to 12. Pt states I can drink for a week and then not drink. It all depends on who I'm with and what I'm doing. Pt reports he has been drinking off and on his entire life. Pt denies hx AUD treatment. Reports no legal issues pertaining to alcohol use. Denies family/friends being concerned with amount of alcohol used. When asked about desire to reduce or abstain, pt states I've thought about it. Pt quickly deflects conversation. Provided pt with recovery resources as well as t/w contact information if needed. Denies questions or concerns. Discussed with Irma August APRN.
--- NOTE | 2023-01-08 16:40 | PM.EVENT ---
Event Note Date of Service: 01/08/23 Event Note: Addiction consult placed patient seen by recovery support RN no follow up indicated at this time Time Spent With Patient Time: Total time managing care of this patient today ____ minutes.
--- NOTE | 2023-01-08 16:42 | P.DS_ITS ---
DS: Providers Provider Date of admission: 01/06/23 21:26 Primary care physician: MONICA Harkins Consults: 01/08/23 09:57 Addiction Medicine Routine Consulting Provider: Addiction Covering Reason for consultation: etoh/other Has provider been notified: No DS: Diagnosis Discharge Diagnosis (1) Altered mental status: Status: Acute (2) Compression fx, lumbar spine: Status: Acute (3) Acute delirium: Status: Acute (4) Anemia: Status: Acute (5) HTN (hypertension): Status: Acute (6) Ascending aorta enlargement: Status: Acute (7) Aortic regurgitation: Status: Acute DS: Summary Hospital Course Hospital Course: Date of Service: 01/06/23 Attending physician on admission: Afshin Tam Chief Complaint: Altered mental status Mr. 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 His brother reports? that the patient was normal yesterday.? He reports no history of seizures, alcohol intake a few times a week, but he does smoke marijuana. On arrival to the emergency room, the patient's blood pressure 101/62, heart rate 115, temp 98.0. Laboratory data significant for WBC 13.1, CK 178, BNP 142. Electrolytes, renal function, and liver enzymes within normal limits. Amm normal at 28. TSH 1.35. Procalcitonin 0.02. UA neg. Urine drug screen positive for THC. 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 His brother reports? that the patient was normal yesterday.? He reports no history of seizures, alcohol intake a few times a week, but he does smoke marijuana. On arrival to the emergency room, the patient's blood pressure 101/62, heart rate 115, temp 98.0. CT cervical spine and CT head and brain was unremarkable, chest x-ray showed no focal infiltrate Echo showed normal EF no pericardial disease Laboratory data significant for WBC 13.1, CK 178, BNP 142. Electrolytes, renal function, and liver enzymes within normal limits. Amm normal at 28. TSH 1.35. Procalcitonin 0.02. UA neg. Urine drug screen positive for THC. In emergency room Patient became significantly agitated, attempting to grab staff, thrashing and kicking.? He was given lorazepam, Zyprexa, and phenoba rbital.? He did not respond to medications. ? He was sedated? with propofol and fentanyl and intubated.?He was given thiamine, Protonix, ceftriaxone, acyclovir and transferred to intensive care unit. Hospital course: Acute delirium: 72-year-old gentleman with past medical history of hypertension, chronic mild anemia was brought in to [facility] due to agitation and incontinence surrounded by beer cans and vomiting, patient in the ED was noted to be agitated tract thrashing and kicking required intubation and admission to intensive care unit, subsequently patient was extubated within 24 hours he was noted to have soft blood pressures he passed swallow eval and was transferred to medical floor during hospitalization patient remains hemodynamically stable, he is tolerating diet with no nausea no vomiting no tremors no withdrawal symptoms had no seizures patient seen by Addiction Team he admitted of drinking 6-12 beers a day depending on his company outpatient referrals given , he was evaluated by Physical therapy and they recommend discharge home with family in regard to history of hypertension patient noted to have soft blood pressures he is on 3 antihypertensive medications including Norvasc lisinopril and labetalol recommend to discontinue Norvasc and lisinopril and continue labetalol on close outpatient follow-up with primary care physician. Acute hypokalemia repleted Discharge diagnosis Acute toxic metabolic encephalopathy/acute delirium likely due to marijuana/alcohol intoxication Hypertension Ascending aorta enlargement/aortic regurgitation Acute anemia likely dilutional Acute hypokalemia will replace and follow labs. Time Spent with Patient Time attestation: Total time managing care of this patient today ____ minutes. Physical Exam Vital Signs: Vital Signs: Last Vital Signs Temp 97.8 F 01/08/23 15:52 Pulse 98 01/08/23 15:52 Resp 18 01/08/23 15:52 BP 140/76 H 01/08/23 15:52 Pulse Ox 96 01/08/23 15:52 O2 Del Method Room Air 01/08/23 15:52 O2 Flow Rate 2 01/07/23 12:00 FiO2 40 01/07/23 09:28 BMI result Body Mass Index 27.5 Const: Other: General resting comfortably in no acute distress. Neck supple no JVD. CVS regular rate rhythm, Respiratory lungs clear to auscultation, no respiratory distress, no wheeze, no rhonchi. Gastrointestinal abdomen soft, nontender, bowel sounds audible, no guarding , no rigidity. Extremities no edema. Neuro nonfocal , speech clear,no tremors. Skin no rash Psych appropriate affect DS: Data Data Completed and Pending Labs on day of discharge: Laboratory Results - last 24 hr 01/08/23 06:13 WBC 10.7 RBC 4.13 L Hgb 12.8 L Hct 37.6 L MCV 91.0 MCH 31.0 MCHC 34.0 RDW 13.4 Plt Count 289 MPV 9.5 Absolute Nucleated RBC 0.000 Nucleated RBC % (auto) 0.0 Sodium 141 Potassium 3.3 Chloride 108 Carbon Dioxide 20 L Anion Gap 16 BUN 7 L Creatinine 0.82 Estim Creat Clear Calc 89.2 Estimated GFR > 60 Random Glucose 90 Calcium 8.9 Preliminary micro results at discharge 01/07/23 03:25 Blood Culture - Preliminary Blood - Venous No growth after 24 hours. 01/07/23 03:25 Blood Culture - Preliminary Blood - Venous No growth after 24 hours. 01/06/23 18:13 Blood Culture - Preliminary Blood - Venous No growth after 24 hours. 01/06/23 16:33 Blood Culture - Preliminary Blood - Venous No growth after 24 hours. Discharge Plan Discharge Anticipated Discharge Date/Time: 01/08/23 16:37 Discharge Diagnosis: Acute delirium Referrals: Wesley Odell, [employer]- [Primary Care Provider] - 1 Week Discharge Medications: Continued labetalol 300 mg tablet 300 mg PO BID 90 Days Qty: 180 3RF Discontinued amlodipine 5 mg tablet 5 mg PO DAILY Qty: 90 3RF lisinopril 10 mg tablet 10 mg PO DAILY Qty: 90 3RF Discharge Orders: Discharge Order (Routine); Ordered 01/08/23 Ordered By: Milton León Diet: Advance to usual diet Activity on Discharge: As tolerated Stand Alone Forms: Patient Portal Discharge page Care Plan Goals: Acute delirium resolved was likely due to alcohol intoxication/WD and illicit drug use now resolved seen by addiction team counseling done outpatient referrals given Health Concerns: Hypertension noted to have soft blood pressure recommend to only use labetalol 300 mg twice daily Stop lisinopril and Norvasc Plan of Treatment: Outpatient follow-up with primary care physician Assessment: As above
--- NOTE | 2023-01-08 16:59 | HO.PM.IMPN ---
Subjective Subjective Date of Service: 01/08/23 Interval History: Offers no acute complaints tolerating diet no nausea no vomiting no abdominal pain or diarrhea denies urinary symptoms of urgency and frequency, admitted to be on 4 antihypertensive medications in the past recently seen by PCP and he decreased to 3 antihypertensive medications patient at times skip his medications Review of Systems All other system reviewed and negative Physical Exam Vital Signs: Vital Signs: Last Vital Signs Temp 97.8 F 01/08/23 15:52 Pulse 98 01/08/23 15:52 Resp 18 01/08/23 15:52 BP 140/76 H 01/08/23 15:52 Pulse Ox 96 01/08/23 15:52 O2 Del Method Room Air 01/08/23 15:52 O2 Flow Rate 2 01/07/23 12:00 FiO2 40 01/07/23 09:28 BMI result Body Mass Index 27.5 Const: Other: General resting comfortably in no acute distress. Neck supple no JVD. CVS regular rate rhythm, Respiratory lungs clear to auscultation, no respiratory distress, no wheeze, no rhonchi. Gastrointestinal abdomen soft, nontender, bowel sounds audible, no guarding , no rigidity. Extremities no edema. Neuro nonfocal , speech clear,no tremors. Skin no rash Psych appropriate affect Objective Data Active Medications Albuterol/Ipratropium (Albuterol/Iprat 2.5/0.5mg 3 Ml Ampul.Neb) 3 ml INHALE RQ4H WHILE AWAKE [facility] Last Admin: 01/08/23 15:24 Dose: 3 ml Documented By: JANIA Heparin Sodium (Porcine) (Heparin Sodium,Porcine 5,000 Unit/Ml Vial) 5,000 unit SUBCUT Q8H [facility] Last Admin: 01/08/23 13:59 Dose: 5,000 unit Documented By: CRISTAL Nystatin (Nystatin Cream 15 Gm Tube) 1 appl TOPICAL BID [facility]; Protocol Last Admin: 01/08/23 08:32 Dose: 1 appl Documented By: CRISTAL Pantoprazole Sodium (Pantoprazole Sodium 40 Mg/10 Ml Vial) 40 mg IVPUSH DAILY@0630 [facility] Last Admin: 01/08/23 05:52 Dose: 40 mg Documented By: ODRISM Labs 01/08/23 06:13 01/08/23 06:13 Labs: Laboratory Results - last 24 hr 01/08/23 06:13 MCV 91.0 MCH 31.0 MCHC 34.0 RDW 13.4 Plt Count 289 MPV 9.5 Absolute Nucleated RBC 0.000 Nucleated RBC % (auto) 0.0 Anion Gap 16 Estim Creat Clear Calc 89.2 Estimated GFR > 60 Random Glucose 90 Calcium 8.9 Microbiology Microbiology Results: Microbiology 01/07/23 03:25 Blood Culture - Preliminary Blood - Venous No growth after 24 hours. 01/07/23 03:25 Blood Culture - Preliminary Blood - Venous No growth after 24 hours. 01/06/23 18:13 Blood Culture - Preliminary Blood - Venous No growth after 24 hours. 01/06/23 16:33 Blood Culture - Preliminary Blood - Venous No growth after 24 hours. Assessment and Plan (1) Altered mental status: Status: Acute Plan Acute delirium ; resolved was likely due to alcohol /marijuana question laced with some other drugs, status post admission to ICU requiring intubation subsequently extubated and transferred to floor seen by speech therapist passed swallow eval currently tolerating diet, no withdrawal symptoms noted no seizure-like activity History of hypertension noted to have soft blood pressure recommend to discontinue Norvasc and lisinopril continue labetalol 300 mg b.i.d. and follow-up with primary care physician Chronic mild anemia stable Alcohol use disorder seen by Addiction Team outpatient referrals given, patient denies history of withdrawal in the past Acute hypokalemia repleted L1 compression fracture no complaints question chronic Disposition seen by PT recommend home with family Patient will need continued inpatient hospitalization for safe disposition and monitoring for alcohol withdrawal. Time Spent With Patient Time: Total time managing care of this patient today ____ minutes. Quality Stroke Does the patient have a stroke diagnosis?: No VTE Prior VTE?: No VTE Risk Level:: Medical - moderate - high VTE Device Contraindication: N/A - Device Ordered VTE Drug Contraindication: N/A - Med Ordered
--- NOTE | 2023-01-08 17:40 | PC.NURSE ---
Patients sister Lois left phone number in case any additional info is needed from nursing staff
[2023-01-09] VITALS (7 sets, daily range): BP systolic 168–177; BP diastolic 83–91; PULSE 86–112; RESP 12–18; TEMP 36.1–36.6; O2SAT 96–98
--- NOTE | 2023-01-09 04:18 | PC.NURSE ---
Patient oriented to person and place. Hallucinations of bugs in room. Previous RN reported to me that patient was talking to his own reflection in window.
--- NOTE | 2023-01-09 05:33 | PM.EVENT ---
Event Note Date of Service: 01/09/23 Event Note: periods of confusion and hallucination ? withdrawing, ativan PRN. CIWA Time Spent With Patient Time: Total time managing care of this patient today ____ minutes.
[2023-01-09] MEDS: Albuterol/Iprat 2.5/0.5MG 3 ML AMPUL.NEB INHALE ×3 (09:31→19:35)
--- NOTE | 2023-01-09 14:11 | HO.PM.IMPN ---
Subjective Subjective Date of Service: 01/09/23 Interval History: seeing rats in his bed; ants on the floor. All consistent with alcohol withdrawal. somewhat agitated to staff this a.m. Review of Systems unable to obtain Physical Exam Vital Signs: Vital Signs: Last Vital Signs Temp 97.8 F 01/09/23 11:35 Pulse 100 01/09/23 13:09 Resp 16 01/09/23 13:09 BP 177/85 H 01/09/23 11:35 Pulse Ox 96 01/09/23 11:35 O2 Del Method Room Air 01/09/23 11:35 O2 Flow Rate 2 01/07/23 12:00 FiO2 40 01/07/23 09:28 BMI result Body Mass Index 27.5 Const: Other: awake confused slightly agitated Resp: Other: clear to auscultation bilaterally no rales rhonchi or wheezes Cardio: Other: no S4; positive S1-S2; no S3 murmurs rubs or gallops Neuro: Other: moves all extremities with equal power ; cannot participate in full exam Extrem: Other: no edema bilaterally Objective Data Active Medications Albuterol/Ipratropium (Albuterol/Iprat 2.5/0.5mg 3 Ml Ampul.Neb) 3 ml INHALE RQ4H WHILE AWAKE [facility] Last Admin: 01/09/23 13:09 Dose: 3 ml Documented By: HOLDEN Heparin Sodium (Porcine) (Heparin Sodium,Porcine 5,000 Unit/Ml Vial) 5,000 unit SUBCUT Q8H [facility] Last Admin: 01/09/23 13:23 Dose: Not Given Documented By: STEPHAN Non-Admin Reason: Patient Refused Nystatin (Nystatin Cream 15 Gm Tube) 1 appl TOPICAL BID [facility]; Protocol Last Admin: 01/09/23 07:57 Dose: Not Given Documented By: STEPHAN Non-Admin Reason: Patient Refused Pantoprazole Sodium (Pantoprazole Sodium 40 Mg/10 Ml Vial) 40 mg IVPUSH DAILY@0630 [facility] Last Admin: 01/09/23 06:09 Dose: 40 mg Documented By: BETTE Pharmacy Consult (Consult Rx Etoh Phenob Im/Po) 1 each MISCELLANE ONCE PRN; Protocol PRN Reason: Consult order Phenobarbital (Phenobarbital 30 Mg Tablet) 60 mg PO BID [facility] Stop: 01/11/23 09:01 Phenobarbital (Phenobarbital 30 Mg Tablet) 30 mg PO BID [facility] Stop: 01/13/23 09:01 Phenobarbital (Phenobarbital 30 Mg Tablet) 30 mg PO DAILY [facility] Stop: 01/15/23 09:01 Phenobarbital Sodium (Phenobarbital Sodium 130 Mg/Ml Vial Im Q3hx2) 226 mg IM 1200,1500 [facility] Stop: 01/09/23 15:01 Last Admin: 01/09/23 11:52 Dose: 226 mg Documented By: STEPHAN Labs 01/08/23 06:13 01/08/23 06:13 Microbiology Microbiology Results: Microbiology 01/07/23 03:25 Blood Culture - Preliminary Blood - Venous No growth after 48 hours. 01/07/23 03:25 Blood Culture - Preliminary Blood - Venous No growth after 48 hours. 01/06/23 18:13 Blood Culture - Preliminary Blood - Venous No growth after 48 hours. 01/06/23 16:33 Blood Culture - Preliminary Blood - Venous No growth after 48 hours. Assessment and Plan (1) HTN (hypertension): Status: Acute (2) Alcohol withdrawal: Status: Acute Plan Acute delirium ; resolved was likely due to alcohol /marijuana question laced with some other drugs, status post admission to ICU requiring intubation subsequently extubated and transferred to floor seen by speech therapist passed swallow eval currently tolerating diet,; developed acute withdrawal symptoms this a.m.. 1.Alcohol Withdrawl - Phenobarb protocol - IM Haldol as indicated by clinical presentation - observe on CIWA protocol 2.HTN - acceptable control on current therapies - adjust as indicated Lovenox full code requires ongoing hospitalization to treat alcohol withdrawal Time Spent With Patient Time: Total time managing care of this patient today ____ minutes. Quality Stroke Does the patient have a stroke diagnosis?: No VTE Prior VTE?: No VTE Risk Level:: Medical - moderate - high VTE Device Contraindication: N/A - Device Ordered VTE Drug Contraindication: N/A - Med Ordered
[2023-01-10] VITALS (8 sets, daily range): BP systolic 143–160; BP diastolic 82–99; PULSE 88–111; RESP 16–20; TEMP 36.5–36.8; O2SAT 97–99
[2023-01-10] MEDS: Albuterol/Iprat 2.5/0.5MG 3 ML AMPUL.NEB INHALE (09:03)
--- NOTE | 2023-01-10 12:00 | HO.PM.IMPN ---
Subjective Subjective Date of Service: 01/10/23 Interval History: some improvement overnight. CIWA remains between 5 and 6. Continues with visual hallucinations Review of Systems unable to obtain Physical Exam Vital Signs: Vital Signs: Last Vital Signs Temp 98.1 F 01/10/23 08:00 Pulse 111 H 01/10/23 09:05 Resp 16 01/10/23 09:05 BP 155/99 H 01/10/23 08:00 Pulse Ox 97 01/10/23 08:00 O2 Del Method Room Air 01/10/23 08:00 O2 Flow Rate 2 01/07/23 12:00 FiO2 40 01/07/23 09:28 BMI result Body Mass Index 27.5 Const: Other: awake confused but improved since yesterday Resp: Other: clear to auscultation bilaterally no rales rhonchi or wheezes Cardio: Other: no S4; positive S1-S2; no S3 murmurs rubs or gallops Neuro: Other: moves all extremities with equal power ; cannot participate in full exam Extrem: Other: no edema bilaterally Objective Data Active Medications Albuterol/Ipratropium (Albuterol/Iprat 2.5/0.5mg 3 Ml Ampul.Neb) 3 ml INHALE RQ4H WHILE AWAKE [facility] Last Admin: 01/10/23 09:03 Dose: 3 ml Documented By: HOLDEN Heparin Sodium (Porcine) (Heparin Sodium,Porcine 5,000 Unit/Ml Vial) 5,000 unit SUBCUT Q8H [facility] Last Admin: 01/10/23 06:48 Dose: 5,000 unit Documented By: KADIE Nystatin (Nystatin Cream 15 Gm Tube) 1 appl TOPICAL BID [facility]; Protocol Last Admin: 01/10/23 07:33 Dose: 1 appl Documented By: STEPHAN Pharmacy Consult (Consult Rx Etoh Phenob Im/Po) 1 each MISCELLANE ONCE PRN; Protocol PRN Reason: Consult order Phenobarbital (Phenobarbital 30 Mg Tablet) 60 mg PO BID [facility] Stop: 01/11/23 09:01 Last Admin: 01/10/23 07:32 Dose: 60 mg Documented By: STEPHAN Phenobarbital (Phenobarbital 30 Mg Tablet) 30 mg PO BID [facility] Stop: 01/13/23 09:01 Phenobarbital (Phenobarbital 30 Mg Tablet) 30 mg PO DAILY [facility] Stop: 01/15/23 09:01 Labs 01/08/23 06:13 01/08/23 06:13 Assessment and Plan (1) Alcohol withdrawal: Status: Acute Plan Acute delirium ; resolved was likely due to alcohol /marijuana question laced with some other drugs, status post admission to ICU requiring intubation subsequently extubated and transferred to floor seen by speech therapist passed swallow eval currently tolerating diet,; developed acute withdrawal symptoms this a.m.. 1.Alcohol Withdrawl - somewhat improved. CIWA remains 5-6 - Phenobarb protocol - IM Haldol as indicated by clinical presentation - observe on CIWA protocol 2.HTN - acceptable control on current therapies - adjust as indicated Lovenox full code requires ongoing hospitalization to treat alcohol withdrawal Time Spent With Patient Time: Total time managing care of this patient today ____ minutes. Quality Stroke Does the patient have a stroke diagnosis?: No VTE Prior VTE?: No VTE Risk Level:: Medical - moderate - high VTE Device Contraindication: N/A - Device Ordered VTE Drug Contraindication: N/A - Med Ordered
[2023-01-11 04:00] VITALS: BP 141/77; PULSE 96; RESP 16; TEMP 36.4; O2SAT 96
[2023-01-11 06:00] VITALS: BMI 26.4
[2023-01-11 07:41] VITALS: BP 140/76; PULSE 93; RESP 16; TEMP 36.2; O2SAT 95
[2023-01-11 07:47] VITALS: PULSE 97; RESP 16; O2SAT 95
[2023-01-11 11:40] VITALS: BP 146/78; PULSE 89; RESP 16; TEMP 36.5; O2SAT 97
--- NOTE | 2023-01-11 12:00 | HO.PM.IMPN ---
Subjective Subjective Date of Service: 01/11/23 Interval History: Behavior improved however CIWA 8. No seizures noted Review of Systems unable to obtain Physical Exam Vital Signs: Vital Signs: Last Vital Signs Temp 97.7 F 01/11/23 11:40 Pulse 89 01/11/23 11:40 Resp 16 01/11/23 11:40 BP 146/78 H 01/11/23 11:40 Pulse Ox 97 01/11/23 11:40 O2 Del Method Room Air 01/11/23 11:40 O2 Flow Rate 2 01/07/23 12:00 FiO2 40 01/07/23 09:28 BMI result Body Mass Index 26.4 Const: Other: awake confused but improved since yesterday Resp: Other: clear to auscultation bilaterally no rales rhonchi or wheezes Cardio: Other: no S4; positive S1-S2; no S3 murmurs rubs or gallops Neuro: Other: moves all extremities with equal power ; cannot participate in full exam Extrem: Other: no edema bilaterally Objective Data Active Medications Albuterol/Ipratropium (Albuterol/Iprat 2.5/0.5mg 3 Ml Ampul.Neb) 3 ml INHALE RQ4H WHILE AWAKE [facility] Last Admin: 01/11/23 11:05 Dose: Not Given Documented By: JANIA Non-Admin Reason: Patient Refused Heparin Sodium (Porcine) (Heparin Sodium,Porcine 5,000 Unit/Ml Vial) 5,000 unit SUBCUT Q8H [facility] Last Admin: 01/11/23 06:08 Dose: 5,000 unit Documented By: CALEB Nystatin (Nystatin Cream 15 Gm Tube) 1 appl TOPICAL BID [facility]; Protocol Last Admin: 01/11/23 09:08 Dose: 1 appl Documented By: NEGRITO Pharmacy Consult (Consult Rx Etoh Phenob Im/Po) 1 each MISCELLANE ONCE PRN; Protocol PRN Reason: Consult order Phenobarbital (Phenobarbital 30 Mg Tablet) 30 mg PO BID [facility] Stop: 01/13/23 09:01 Phenobarbital (Phenobarbital 30 Mg Tablet) 30 mg PO DAILY [facility] Stop: 01/15/23 09:01 Labs 01/08/23 06:13 01/08/23 06:13 Assessment and Plan (1) Alcohol withdrawal: Status: Acute Plan Acute delirium ; resolved was likely due to alcohol /marijuana question laced with some other drugs, status post admission to ICU requiring intubation subsequently extubated and transferred to floor seen by speech therapist passed swallow eval currently tolerating diet,; developed acute withdrawal symptoms this a.m.. 1.Alcohol Withdrawl - somewhat improved. CIWA remains 6-8 - Phenobarb protocol - IM Haldol as indicated by clinical presentation - observe on CIWA protocol 2.HTN - acceptable control on current therapies - adjust as indicated Lovenox full code requires ongoing hospitalization to treat alcohol withdrawal Time Spent With Patient Time: Total time managing care of this patient today ____ minutes. Quality Stroke Does the patient have a stroke diagnosis?: No VTE Prior VTE?: No VTE Risk Level:: Medical - moderate - high VTE Device Contraindication: N/A - Device Ordered VTE Drug Contraindication: N/A - Med Ordered
[2023-01-11 15:39] VITALS: BP 148/79; PULSE 90; RESP 20; TEMP 36.4; O2SAT 98
[2023-01-11 19:42] VITALS: BP 149/51; PULSE 87; RESP 20; TEMP 36.2; O2SAT 97
[2023-01-12] VITALS: BP 146/85; PULSE 86; RESP 19; TEMP 36.2; O2SAT 96
[2023-01-12 03:34] VITALS: BP 133/75; PULSE 85; RESP 18; TEMP 36.3; O2SAT 96
[2023-01-12 05:18] VITALS: BMI 26.2
[2023-01-12 08:00] VITALS: BP 137/72; PULSE 87; RESP 18; TEMP 36.1; O2SAT 94
[2023-01-12 08:07] VITALS: PULSE 94; RESP 18; O2SAT 98
[2023-01-12 11:23] VITALS: BP 157/82; PULSE 97; RESP 17; TEMP 36.2; O2SAT 98
--- NOTE | 2023-01-12 12:39 | PM.DS ---
DS: Providers Provider Date of Service: 01/12/23 Date of admission: 01/06/23 21:26 Date of discharge: 01/12/23 Primary care physician: MONICA Harkins Consults: 01/12/23 11:31 Addiction Medicine Stat Consulting Provider: Addiction Covering Reason for consultation: EToh abuse.... Has provider been notified: No DS: Diagnosis Discharge Diagnosis (1) Alcohol withdrawal: Status: Acute DS: Summary Hospital Course Hospital Course: Date of Service: 01/06/23 Attending physician on admission: Afshin Tam Chief Complaint: Altered mental status Mr. 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 His brother reports? that the patient was normal yesterday.? He reports no history of seizures, alcohol intake a few times a week, but he does smoke marijuana. On arrival to the emergency room, the patient's blood pressure 101/62, heart rate 115, temp 98.0. Laboratory data significant for WBC 13.1, CK 178, BNP 142. Electrolytes, renal function, and liver enzymes within normal limits. Amm normal at 28. TSH 1.35. Procalcitonin 0.02. UA neg. Urine drug screen positive for THC. 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 His brother reports? that the patient was normal yesterday.? He reports no history of seizures, alcohol intake a few times a week, but he does smoke marijuana. On arrival to the emergency room, the patient's blood pressure 101/62, heart rate 115, temp 98.0. CT cervical spine and CT head and brain was unremarkable, chest x-ray showed no focal infiltrate Echo showed normal EF no pericardial disease Laboratory data significant for WBC 13.1, CK 178, BNP 142. Electrolytes, renal function, and liver enzymes within normal limits. Amm normal at 28. TSH 1.35. Procalcitonin 0.02. UA neg. Urine drug screen positive for THC. In emergency room Patient became significantly agitated, attempting to grab staff, thrashing and kicking.? He was given lorazepam, Zyprexa, and phenobarbital.? He did not respond to medications. ? He was sedated? with propofol and fentanyl and intubated.?He was given thiamine, Protonix, ceftriaxone, acyclovir and transferred to intensive care unit. Hospital course: Acute delirium: 72-year-old gentleman with past medical history of hypertension, chronic mild anemia was brought in to [facility] due to agitation and incontinence surrounded by beer cans and vomiting, patient in the ED was noted to be agitated tract thrashing and kicking required intubation and admission to intensive care unit, subsequently patient was extubated within 24 hours he was noted to have soft blood pressures he passed swallow eval and was transferred to medical floor during hospitalization patient remains hemodynamically stable, he is tolerating diet with no nausea no vomiting no tremors no withdrawal symptoms had no seizures patient seen by Addiction Team he admitted of drinking 6-12 beers a day depending on his company outpatient referrals given , he was evaluated by Physical therapy and they recommend discharge home with family in regard to history of hypertension patient noted to have soft blood pressures he is on 3 antihypertensive medications including Norvasc lisinopril and labetalol recommend to discontinue Norvasc and lisinopril and continue labetalol on close outpatient follow-up with primary care physician. Acute hypokalemia repleted Discharge diagnosis Acute toxic metabolic encephalopathy/acute delirium likely due to marijuana/alcohol intoxication Hypertension Ascending aorta enlargement/aortic regurgitation Acute anemia likely dilutional Acute hypokalemia will replace and follow labs. Time Spent with Patient Time attestation: Total time managing care of this patient today ____ minutes. Discharge coordination time: Greater than 30 minutes Quality: Safe Use of Opioids Does Pt have an Active Cancer Diagnosis on the Problem List?: No Quality: Stroke Does the patient have a stroke diagnosis?: No Physical Exam Vital Signs: Vital Signs: Last Vital Signs Temp 97.1 F 01/12/23 11:23 Pulse 97 01/12/23 11:23 Resp 17 01/12/23 11:23 BP 157/82 H 01/12/23 11:23 Pulse Ox 98 01/12/23 11:23 O2 Del Method Room Air 01/12/23 11:23 O2 Flow Rate 2 01/07/23 12:00 FiO2 40 01/07/23 09:28 BMI result Body Mass Index 26.2 Const: Other: awake confused but improved since yesterday Resp: Other: clear to auscultation bilaterally no rales rhonchi or wheezes Cardio: Other: no S4; positive S1-S2; no S3 murmurs rubs or gallops Neuro: Other: moves all extremities with equal power ; cannot participate in full exam Extrem: Other: no edema bilaterally Discharge Plan Discharge Anticipated Discharge Date/Time: 01/08/23 16:37 Patient Disposition: Home, Self-Care Discharge Diagnosis: Acute delirium Referrals: Wesley Odell, [employer] [Primary Care Provider] - 1 Week Discharge Medications: Continued labetalol 300 mg tablet 300 mg PO BID 90 Days Qty: 180 3RF Discontinued amlodipine 5 mg tablet 5 mg PO DAILY Qty: 90 3RF lisinopril 10 mg tablet 10 mg PO DAILY Qty: 90 3RF Discharge Orders: Discharge Order (Routine); Ordered 01/12/23 Ordered By: Francis Najera Diet: Advance to usual diet Activity on Discharge: As tolerated Stand Alone Forms: Patient Portal Discharge page Care Plan Goals: Acute delirium resolved was likely due to alcohol intoxication/WD and illicit drug use now resolved seen by addiction team counseling done outpatient referrals given Health Concerns: Hypertension noted to have soft blood pressure recommend to only use labetalol 300 mg twice daily Stop lisinopril and Norvasc Plan of Treatment: Outpatient follow-up with primary care physician Assessment: As above
[2023-01-12 12:50] VITALS: PULSE 100; RESP 18; O2SAT 99
--- NOTE | 2023-01-12 12:51 | MHC.CM.PN ---
PT TO DC HOME TODAY WITH NO SERVICES FAMILY TO TRANSPORT
== END 2023-01-12 14:58 | disposition home or self-care (01) | DRG 897 ==
LOC: HO.ED 15:26 → HO.EDOVER 21:47 → HO.ICU 21:50 → HO.S3 01-07 12:19
PROVIDERS: Hospitalist; Internal Medicine Cardiovascular Disease; Admitting Provider Nurse Practitioner Family; Emergency Provider Emergency Medicine; PCP Nurse Practitioner Family; Visit Provider Hospitalist
DX: F12.921 Cannabis use, unspecified with intoxication delirium (principal); F10.231 Alcohol dependence with withdrawal delirium; I35.1 Nonrheumatic aortic (valve) insufficiency; D64.9 Anemia, unspecified; I10 Essential (primary) hypertension; Z91.148 Patient's other noncompliance with medication regimen for other reason; E87.6 Hypokalemia; Z20.822 Contact with and (suspected) exposure to COVID-19; Z79.899 Other long term (current) drug therapy
CPT/HCPCS: 36415; 70450; 71045; 71250; 72125; 74176; 80048; 80076; 80143; 80179; 80307; 81001; 82040; 82140; 82550; 82803; 83605; 83690; 83735; 83880; 84100; 84145; 84443; 84484; 85025; 85027; 85610; 86140; 87040; 87633; 87635; 93005; 94002; 94003; 94640; 97162; 99285; C1758; J0133; J0696; J1643; J2060; J2251; J2405; J2560; J3010; J3370; J3411

== ENCOUNTER → 2023-01-06 21:26 | Outpatient (BNV) | payer MEDICARE, SELFPAY | PROVIDERS: Admitting Provider Nurse Practitioner Family; Emergency Provider Emergency Medicine; PCP Nurse Practitioner Family; Visit Provider Hospitalist | DX: F10.939 Alcohol use, unspecified with withdrawal, unspecified (principal) | CPT/HCPCS: 99233; 99239; 99499 ==

== ENCOUNTER → 2023-01-06 21:26 | Outpatient (BNV) | payer MEDICARE, SELFPAY | PROVIDERS: Admitting Provider Nurse Practitioner Family; Emergency Provider Emergency Medicine; PCP Nurse Practitioner Family; Visit Provider Nurse Practitioner Family | DX: R41.0 Disorientation, unspecified (principal); S32.010A Wedge compression fracture of first lumbar vertebra, initial encounter for closed fracture; D64.9 Anemia, unspecified; I10 Essential (primary) hypertension; I77.89 Other specified disorders of arteries and arterioles; I35.1 Nonrheumatic aortic (valve) insufficiency | CPT/HCPCS: 99223; 99233 ==

== ENCOUNTER 2023-01-27 09:40 | Outpatient (AMB) | payer MEDICARE, SELFPAY ==
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
[2023-01-27 09:44] VITALS: BP 118/68; PULSE 70; O2SAT 98; BMI 28.6
== END 2023-01-27 14:19 | disposition home or self-care (01) ==
PROVIDERS: PCP Nurse Practitioner Family; Visit Provider Nurse Practitioner Family
DX: R41.0 Disorientation, unspecified (principal)
CPT/HCPCS: 99213

== ENCOUNTER 2023-01-28 11:38 | Inpatient (IN) | payer OTHER, MEDICARE, SELFPAY ==
[2023-01-28] VITALS (22 sets, daily range): BP systolic 98–174; BP diastolic 58–98; PULSE 71–100; RESP 12–22; TEMP 36.4–37.1; O2SAT 97–100; BMI 28.5
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
--- NOTE | ~2023-01-28 | MR_ITS ---
EXAMINATION: MR BRAIN WITHOUT AND WITH CONTRAST CLINICAL INFORMATION: Onset seizure. COMPARISON: CT head from 01/28/2023. TECHNIQUE: MRI of the brain was obtained using routine sequences without and following the administration of 8.5 mL of Gadavist intravenous contrast. FINDINGS: Metal artifact partially obscures evaluation of the right temporal lobe. No focal restricted diffusion is demonstrated to suggest acute or subacute cerebral ischemia. No evidence of acute or chronic hemorrhagic products on heme-sensitive imaging. Scattered periventricular and deep white matter T2 FLAIR hyperintensities consistent with mild underlying microangiopathy. The ventricles are normal in morphology and size. No abnormal mass effect. No midline shift. The hippocampi are symmetric in size, contour, and signal intensity. The temporal horns appear symmetric. The sella turcica is mildly expanded with flattening of the pituitary gland. Normal positioning of the cerebellar tonsils. Normal arterial and venous vascular flow voids are present. No abnormal contrast enhancement. Normal, homogeneous marrow signal. Mild mucosal thickening of the paranasal sinuses. Small left-sided mastoid effusion. No signal abnormalities within the right-sided mastoid. MR/MR head/brain wo/w con IMPRESSION: 1. No acute intracranial abnormalities. No abnormal intracranial enhancement. 2. Mild underlying microangiopathy. 3. No additional MRI abnormalities to explain the patient's symptoms.
--- NOTE | ~2023-01-28 | XR_ITS ---
EXAMINATION: XR ELBOW, RIGHT CLINICAL INFORMATION: Right elbow pain COMPARISON: None available. TECHNIQUE: AP, lateral, and oblique views of the right elbow. FINDINGS: BONES: Bony structures are intact. Hypertrophic bony spur is seen projecting from the medial border of proximal right ulna. Small osteophyte seen at the volar base of right radial head. There is no focal bone destruction or periosteal reaction seen. JOINTS: Alignment of joints is normal. SOFT TISSUE: Soft tissue is normal. No radiopaque foreign body or abnormal air collection is seen. XR/XR elbow RT 2V IMPRESSION: 1. Osteoarthritis of right elbow. 2. No fracture or dislocation or signs of osteomyelitis are found. Some fractures could be difficult to visualize on plain x-rays, especially in the osteopenic and relatively old patients. If there are significant clinical suspicion or symptoms of fracture, further evaluation with CT or MRI scan should be considered.
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
[2023-01-28] MEDS: LORazepam 2 MG/ML VIAL IVPUSH (12:15)
[2023-01-28] MEDS: diphenhydrAMINE HCL 50 MG/ML VIAL IM (12:20)
[2023-01-28] MEDS: Haloperidol Lactate 5 MG/ML VIAL IM (12:20)
[2023-01-28] MEDS: levETIRAcetam in NaCl (iso-os) 1,000 MG/100 ML PIGGYBACK 400 MG IV (12:29)
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
[2023-01-28 12:46] LABS: MANUAL DIFF FLAG NO
[2023-01-28 12:47] LABS: Basophils Absolute Auto 0.1 X10*3/uL (0.0-0.2); Basophils Percent Auto 0.6 % (0-2); Eosinophils Absolute Auto 0.2 X10*3/uL (0.0-0.4); Hematocrit 44.3 % (42.0-52.0); Hemoglobin 14.1 g/dl (14.0-18.0); Imm Gran Abs Auto 0.03 X10*3/uL (0.00-0.03); Imm Gran Pct Auto 0.3 % (0.0-0.4); Lymphocytes Absolute Auto 2.4 X10*3/uL (1.2-4.9); Lymphocytes Percent Auto 20.3 % (20-40); Mean Corpuscular HGB Conc 31.8 g/dl (31.0-36.0); Mean Corpuscular Hemoglobin 30.5 pg (27.0-33.0); Mean Corpuscular Volume 95.7 fL (80.0-98.0); Mean Platelet Volume 9.5 fL (9.4-12.4); Monocytes Absolute Auto 0.8 X10*3/uL (0.1-1.2); Monocytes Percent Auto 6.8 % (2-11); Neutrophils Absolute Auto 8.3 x10*3/uL (2.0-8.3); Platelet Count 345 X10*3/uL (160-400); Red Blood Count 4.63 X10*6/uL (4.60-5.80); Red Cell Distribution Width 13.2 % (11.0-16.0); White Blood Count 11.8 X10*3/uL (4.8-10.8)
[2023-01-28] MEDS: Thiamine HCL 200 MG in 0.9 % Sodium Chloride 100 ML 204 MG IV (12:55)
[2023-01-28 12:57] LABS: Prothrombin Time 12.5 SEC (11.1-13.3)
[2023-01-28 13:03] LABS: Ethanol < 10 mg/dL
[2023-01-28 13:04] LABS: Alanine Aminotransferase 17 U/L (0-40); Albumin Level 4.3 g/dL (3.5-5.0); Alkaline Phosphatase 78 U/L (39-117); Anion Gap 20 (12-20); Aspartate Amino Transferase 22 U/L (5-37); Bilirubin Total 0.4 mg/dL (0.0-1.0); Blood Urea Nitrogen 14 mg/dL (9-16); Calcium 9.4 mg/dL (8.4-10.2); Carbon Dioxide 18 mmol/L (22-29); Chloride 108 mmol/L (96-108); Creatinine Clr Calc Pharmacy 72.4; Estimated Glomerular Filt Rate > 60; Glucose Random 127 mg/dL (60-115); Potassium 4.8 mmol/L (3.3-5.1); Sodium 141 mmol/L (135-145); Total Protein 7.7 g/dL (6.5-8.0)
[2023-01-28 13:06] LABS: COVID-19 Test Negative (Negative); IDNOW Serial# BCCEAD1C
[2023-01-28 13:12] LABS: Acetaminophen LAB < 17 mcg/mL (<30); Salicylate < 5.0 mg/dL (15-30)
[2023-01-28 13:17] LABS: Lactic Acid 10.3 mmol/L (0.5-2.0)
[2023-01-28] MEDS: SODIUM CHLORIDE 2628 ML IV (13:25)
[2023-01-28] MEDS: Folic Acid 1 MG in 0.9 % Sodium Chloride 50 ML 100.4 MG IV (13:31)
[2023-01-28] MEDS: LORazepam 2 MG/ML VIAL 1 MG IVPUSH (13:41)
[2023-01-28 13:43] LABS: ABG Base Excess -2.4 mmol/L; ABG HCO3 21 mmol/L (22-26); ABG pCO2 35 mmHg (32-45); ABG pH 7.39 (7.35-7.45); ABG pO2 121 mmHg (83-108)
[2023-01-28 13:46] LABS: Glucose, Whole Blood 128 mg/dL (60-115)
--- NOTE | 2023-01-28 13:56 | PHA.MEDREC ---
Pharmacy Consult ? Medication Reconciliation Pharmacy has completed the medication reconciliation. Patient just discharged 01/12/23, where amlodipine and lisinopril were stopped. Crystal Guy, BrianD
[2023-01-28 13:58] LABS: Folate 9.4 ng/mL (> or = 4.0)
--- NOTE | 2023-01-28 14:00 | PC.NURSE ---
patient taken off of supplemental o2, satting at 97% room air
--- NOTE | 2023-01-28 14:26 | ECG_ITS ---
Test Reason : SEIZURE Blood Pressure : / mmHG Vent. Rate : 083 BPM Atrial Rate : 083 BPM P-R Int : 152 ms QRS Dur : 124 ms QT Int : 424 ms P-R-T Axes : 068 -63 036 degrees QTc Int : 498 ms Normal sinus rhythm Right bundle branch block Left anterior fascicular block Bifascicular block Abnormal ECG When compared with ECG of 06-JAN-2023 15:35, No significant change was found Referred By: Tam Barrera Electronically Signed By:CARITO CHAN MD
[2023-01-28 14:50] LABS: Reflex Lactate? Lactic Acid Added
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
[2023-01-28 15:32] LABS: Troponin-I High Sensitivity < 2.7 ng/L (<3.5-35.0)
[2023-01-28 15:36] LABS: Amphetamine Screen Urine Not Detected (Not Detect); Barbiturates, Urine POSITIVE (Not Detect); Benzodiazepines Screen Urine Not Detected (Not Detect); Cannabinoid Screen Urine POSITIVE (Not Detect); Cocaine Screen Urine Not Detected (Not Detect); Fentanyl, urine Not Detected (Not Detect); Opiate Screen Urine Not Detected (Not Detect); Phencyclidine Screen Urine Not Detected (Not Detect)
[2023-01-28] MEDS: PHENobarbitaL sodium 130 MG/ML IM ONCE 226.2 MG IM (16:07)
--- NOTE | 2023-01-28 16:15 | PC.NURSE ---
Patient leg restraints removed for comfort, patient becoming more cooperative and alert. patient + bilat pedal pulses.
[2023-01-28] MEDS: iohexoL 350 MG/ML 100 ML INFUS..BTL 85 ML IV (17:24)
[2023-01-28 17:54] LABS: ABG Refer to POC result
[2023-01-28] MEDS: 0.9 % Sodium Chloride 1,000 ML 999 ML IV (18:11)
--- NOTE | 2023-01-28 18:12 | PC.NURSE ---
past had documented two soft blood pressures, reached out to attending, new order for 1000ml NS bolus. medicated per JUN. patient vital signs stable, respirations equal and unlabored. patient within view of nurses station seizure precautions in place
--- NOTE | 2023-01-28 19:22 | PC.NURSE ---
patient is sleeping, arousable to verbal stimuli. respirations equal and unlabored patient shows no signs of distress. has remained seizure free.
[2023-01-28] MEDS: PHENobarbitaL sodium 130 MG/ML VIAL IM Q3Hx2 169 MG IM ×2 (20:04→21:39)
[2023-01-28] MEDS: 0.9 % Sodium Chloride Flush 3 ML SYRINGE IVFLUSH (21:32)
[2023-01-28] MEDS: levETIRAcetam in NaCl (iso-os) 500 MG/100 ML PIGGYBACK 400 MG IV (21:32)
[2023-01-28] MEDS: Famotidine 20 MG TABLET PO (21:33)
[2023-01-28 21:41] LABS: ~Lactic Acid-LAB USE ONLY 0.9 mmol/L (0.5-2.0)
[2023-01-29] VITALS (7 sets, daily range): BP systolic 153–178; BP diastolic 70–89; PULSE 63–82; RESP 17–20; TEMP 36.3–37; O2SAT 95–99
[2023-01-29 08:11] LABS: Hematocrit 38.3 % (42.0-52.0); Mean Corpuscular HGB Conc 33.9 g/dl (31.0-36.0); Mean Corpuscular Hemoglobin 31.3 pg (27.0-33.0); Mean Corpuscular Volume 92.3 fL (80.0-98.0); Platelet Count 262 X10*3/uL (160-400); Red Blood Count 4.15 X10*6/uL (4.60-5.80); White Blood Count 8.4 X10*3/uL (4.8-10.8)
[2023-01-29 08:33] LABS: Anion Gap 12 (12-20); Blood Urea Nitrogen 8 mg/dL (9-16); Calcium 9.1 mg/dL (8.4-10.2); Carbon Dioxide 20 mmol/L (22-29); Chloride 111 mmol/L (96-108); Creatinine Clr Calc Pharmacy 95.3; Estimated Glomerular Filt Rate > 60; Glucose Random 92 mg/dL (60-115); Potassium 3.9 mmol/L (3.3-5.1); Sodium 139 mmol/L (135-145)
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
[2023-01-29] MEDS: Famotidine 20 MG TABLET PO ×2 (09:12→20:19)
[2023-01-29] MEDS: Multivitamin TABLET 1 TAB PO (09:12)
[2023-01-29] MEDS: Thiamine HCL 100 MG TABLET PO (09:12)
[2023-01-29] MEDS: PHENobarbitaL 15 MG TABLET 45 MG PO ×2 (09:12→20:20)
[2023-01-29] MEDS: Folic Acid 1 MG TABLET PO (09:12)
[2023-01-29] MEDS: 0.9 % Sodium Chloride Flush 3 ML SYRINGE IVFLUSH ×3 (09:13→20:35)
[2023-01-29] MEDS: levETIRAcetam in NaCl (iso-os) 500 MG/100 ML PIGGYBACK 400 MG IV ×2 (09:13→20:18)
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
[2023-01-29] MEDS: Enoxaparin Sodium 40 MG/0.4 ML SYRINGE SUBCUT (15:30)
[2023-01-29] MEDS: gadobutroL 10 ML VIAL IVPUSH (19:54)
[2023-01-29] MEDS: Labetalol HCL 100 MG TABLET 300 MG PO (20:20)
[2023-01-30 03:45] VITALS: BP 155/74; PULSE 70; RESP 19; TEMP 36.3; O2SAT 95
[2023-01-30 07:06] LABS: Hemoglobin 12.5 g/dl (14.0-18.0); Mean Corpuscular HGB Conc 33.8 g/dl (31.0-36.0); Mean Corpuscular Volume 91.8 fL (80.0-98.0); Mean Platelet Volume 9.8 fL (9.4-12.4); Platelet Count 263 X10*3/uL (160-400); Red Blood Count 4.03 X10*6/uL (4.60-5.80); Red Cell Distribution Width 12.7 % (11.0-16.0); White Blood Count 8.7 X10*3/uL (4.8-10.8)
[2023-01-30 07:25] LABS: Anion Gap 14 (12-20); Blood Urea Nitrogen 10 mg/dL (9-16); Calcium 9.1 mg/dL (8.4-10.2); Carbon Dioxide 21 mmol/L (22-29); Chloride 108 mmol/L (96-108); Creatinine Clr Calc Pharmacy 91.8; Estimated Glomerular Filt Rate > 60; Glucose Fasting 93 mg/dL (60-99); Magnesium 1.7 mg/dL (1.6-2.6); Potassium 3.6 mmol/L (3.3-5.1); Sodium 139 mmol/L (135-145)
[2023-01-30 08:00] VITALS: BP 131/64; PULSE 68; RESP 18; TEMP 36.4; O2SAT 97
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
[2023-01-30] MEDS: PHENobarbitaL 15 MG TABLET 45 MG PO (09:04)
[2023-01-30] MEDS: 0.9 % Sodium Chloride Flush 3 ML SYRINGE IVFLUSH (09:06)
[2023-01-30] MEDS: Multivitamin TABLET 1 TAB PO (09:10)
[2023-01-30] MEDS: Thiamine HCL 100 MG TABLET PO (09:10)
[2023-01-30] MEDS: Labetalol HCL 100 MG TABLET 300 MG PO (09:10)
[2023-01-30] MEDS: levETIRAcetam in NaCl (iso-os) 500 MG/100 ML PIGGYBACK 400 MG IV (09:10)
[2023-01-30] MEDS: Famotidine 20 MG TABLET PO (09:10)
[2023-01-30] MEDS: Folic Acid 1 MG TABLET PO (09:10)
--- NOTE | 2023-01-30 10:02 | MHC.CM.PN ---
Patient discharged to home today self care. He has arranged for family to provide transportation home.
--- NOTE | 2023-01-30 12:29 | MHC.RECOVRN ---
[employer] consultant attempted to meet with patient in [id number] for Addiction Medicine consult for Alcohol Use. Patient discharged home and left the unit early AM, just prior to my arrival to the floor. Unable to perform consult.
== END 2023-01-30 09:36 | disposition home or self-care (01) | DRG 101 ==
LOC: HO.ED 13:50 → HO.EDOVER 16:12 → HO.IMC 19:23
PROVIDERS: Physician Assistant; Admitting Provider Student in an Organized Health Care Education/Training Program; Emergency Provider Emergency Medicine; PCP Nurse Practitioner Family; Visit Provider Internal Medicine
DX: G40.909 Epilepsy, unspecified, not intractable, without status epilepticus (principal); F10.231 Alcohol dependence with withdrawal delirium; E87.21 Acute metabolic acidosis; R56.9 Unspecified convulsions; S13.4XXA Sprain of ligaments of cervical spine, initial encounter; V47.0XXA Car driver injured in collision with fixed or stationary object in nontraffic accident, initial encounter; W22.11XA Striking against or struck by driver side automobile airbag, initial encounter; I10 Essential (primary) hypertension; Z20.822 Contact with and (suspected) exposure to COVID-19; Z78.1 Physical restraint status; Z79.899 Other long term (current) drug therapy
CPT/HCPCS: 36415; 70450; 70553; 71260; 72125; 73070; 74177; 80048; 80053; 80143; 80179; 80307; 82550; 82746; 82803; 82947; 83605; 83735; 84484; 85025; 85027; 85610; 87040; 87635; 93005; 99285; A9585; J1200; J1650; J1953; J2060; J2560; J3411; Q9967

== ENCOUNTER → 2023-01-28 15:36 | Outpatient (BNV) | payer MEDICARE, SELFPAY | PROVIDERS: Admitting Provider Student in an Organized Health Care Education/Training Program; Emergency Provider Emergency Medicine; PCP Nurse Practitioner Family; Visit Provider Student in an Organized Health Care Education/Training Program | DX: R56.9 Unspecified convulsions (principal); Z04.3 Encounter for examination and observation following other accident | CPT/HCPCS: 99223; 99233; 99239 ==

== ENCOUNTER 2023-07-29 08:48 | Outpatient (AMB) | payer MEDICARE, SELFPAY ==
--- NOTE | 2023-07-29 08:49 | A.OFFPC_ITS ---
Vital Signs 07/29/23 08:51 Weight 186 lb BP 130/90 H Blood Pressure Location Rt brachial Position Sitting Pulse 77 Pulse Source Pulse Oximeter Pulse Oximetry (%) 98 Oxygen Delivery Method Room Air Intake Visit Reasons: Annual PE - see comments Intake Note: Patient here for physical exam. Sister states she believes pt had a seizure on wednesday as she found him sprawled out on his bed with no response when she tried to wake him and once he was up and came to he seemed confused. cologuard:2021 due 2024 Accompanied by: Sister Allergies No Known Allergies Allergy (Verified 07/29/23 08:54) Medication List - Last Reconciled 07/29/23 by MONICA Cruz labetalol 300 mg PO BID 90 days levetiracetam 500 mg PO BID Tobacco use date assessed: 07/29/23 Fall risk assessment: 1 Fall in past year Last assessed Fall Risk: 07/29/23 Dental Screening Dental Screen Date: 07/29/23 Did you have a dental visit in the last 12 months?: No Did you have a dental problem in the last 6 months where you did not have access to dental care?: No Was dental information given to patient?: No HPI Annual PE - see comments HPI Details Pt is here for a PE. Will order labs. Cologuard is up to date. Due for PSA, will order. Denies dribbling with urination, weak stream, and frequent nocturia. Pt follows up with neurology due to seizures. ? seizure activity last week. Will reach out to pt's neurologist. Pt is here with his sister who regularly checks on him. She ? if pt is taking his medication regularly. Encouraged pt to set reminders for this. Pt also sees cardiology. He does smoke marijuana on a regular basis. [facility] Medical History Compression fx, lumbar spine Anemia HTN (hypertension) Aortic regurgitation Ascending aorta enlargement Surgical History No pertinent past surgical history Family History Father Smoker Lung cancer Mother No problems noted. Brother No problems noted. Sister No problems noted. Social History Household Members: None Housing: House Do you presently have visiting nurse or other home services: No Unable to assess alcohol history related to: Unable to respond Alcohol intake: former Patient Tobacco Use Status: Never used Tobacco Years Smoked: unknown e-Cigarette/Vaping Use: Never Used Substance Use Type: Marijuana service: No Current occupational status: employed Cognitive needs: No Hearing needs: No Vision needs: Yes Questionnaire Thrive Questionnaire Date Thrive assessed: 01/29/23 AUDIT C Alcohol Use Questionnaire (AUDIT-C) 1. How often do you have a drink containing alcohol?: Monthly or less 2. How many drinks containing alcohol do you have on a typical day when you are drinking?: 1 or 2 3. How often do you have six or more drinks on one occasion?: Never Total Score: 1 SEEMA-7 AMB Questionnaire SEEMA-7 Date SEEMA - 7 assessed: 12/11/21 Source: Developed by Drs. Gopal Felton, Nancy Jauregui, Mark Virk and colleagues, with an educational sree from [employer]. Review of Systems Const Denies chills and Denies fever(s) Eyes Denies blurry vision ENT Denies vertigo, Denies dizziness and Denies sore throat Card Denies chest pain at rest, Denies chest pain with activity, Denies diaphoresis, Denies dyspnea and Denies dyspnea on exertion Resp Denies cough, Denies dyspnea, Denies dyspnea on exertion and Denies wheezing GI Denies abdominal pain, Denies melena, Denies hematochezia, Denies constipation, Denies diarrhea and Denies loose stools Denies hematuria Musc Denies numbness and Denies tingling Skin/Breast Denies lesions Neuro Denies vertigo, Denies dizziness, Denies numbness and Denies tingling Psych Denies anxiety, Denies depression, Denies homicidal ideation, Denies suicidal ideation and Denies other (substance abuse) Aller/Immun Denies wheezing Physical exam (Primary Care) Vital Signs: Last Vital Signs Pulse 77 07/29/23 08:51 BP 130/90 H 07/29/23 08:51 Pulse Ox 98 07/29/23 08:51 Oxygen Delivery Method Room Air 04/25/24 08:51 Tobacco/Smoking Status: Tobacco use Status Tobacco use date assessed 07/29/23 07/29/23 08:55 Patient Tobacco Use Status Never used Tobacco 07/29/23 08:51 e-Cigarette/Vaping Use Never Used 07/29/23 08:51 Thrive Assessment: Date of Thrive Assessment Date Thrive assessed 01/29/23 07/29/23 08:51 Const General: cooperative Nutritional Appearance: well nourished Orientation/consciousness: patient oriented x3 HENMT Head: Yes normal to inspection, Yes normocephalic and Yes atraumatic Ears: TM's normal bilaterally Eyes General: appearance normal, both eyes and all related structures Alignment and Position: alignment normal and position normal Neck Neck: Yes normal visual inspection and Yes no lymphadenopathy Thyroid: Thyroid normal Resp Effort & Inspection: normal respiratory effort Auscultation: diminished lung sounds Cardio Rate: regular rate Rhythm: regular rhythm Heart sounds: S1 normal heart sound present, S2 normal heart sound present and Murmur heart sound present systolic (faint) GI Palpation (GI): Soft to palpation and nontender Auscultation: normal bowel sounds Male General Exam: Yes normal external exam Penis: normal penis Scrotum: scrotum normal, testes descended bilaterally and no inguinal hernias Testes: no testicular mass Skin Rashes: no rashes Neuro General: patient oriented x3, moves all extremities, no focal motor deficits and deep tendon reflexes 2+ bilaterally Romberg Test: Negative Psych Appearance: grossly normal Mental Status: mental status grossly normal Speech and movement: Normal speech and movement present Affect: normal affect Attitude: cooperative Thought process: Normal thought process present Thought content: Normal thought content present Insight: Good insight present (Psych) Judgement: Good judgement present (Psych) Assessment and Plan Assessment & Plan (1) Screening PSA (prostate specific antigen): Code(s): Z12.5 - Encounter for screening for malignant neoplasm of prostate Plan: PSA ordered (2) Seizure: Code(s): R56.9 - Unspecified convulsions (3) Physical exam: Code(s): Z00.00 - Encounter for general adult medical examination without abnormal findings Plan The patient agreed to the use of a medical record assistant for this encounter. Scribed for MONICA Morales by tayler Garcia scribe, on 07/29/2023 at 08:55 EST. Orders: Orders Prostate Specific Antigen Scr Today Z12.5 - Encounter for screening for malignant neoplasm of prostate Coding Level of Care Code Est Pt Prev Care >65y(79202) Diagnoses Screening PSA (prostate specific antigen) Z12.5 Seizure R56.9 Physical exam Z00.00
[2023-07-29 08:51] VITALS: BP 130/90; PULSE 77; O2SAT 98
== END 2023-07-29 09:17 | disposition home or self-care (01) ==
PROVIDERS: PCP Nurse Practitioner Family; Visit Provider Nurse Practitioner Family
DX: Z12.5 Encounter for screening for malignant neoplasm of prostate (principal); R56.9 Unspecified convulsions; Z00.00 Encounter for general adult medical examination without abnormal findings
CPT/HCPCS: 99397

== ENCOUNTER 2023-07-29 09:27 | Outpatient (REF) | payer MEDICARE, SELFPAY ==
[2023-07-29 13:29] LABS: Appearance Urine Clear; Color Urine Dark Yellow; Glucose Urine UA Negative (Negative); Leukocyte Esterase Urine Small (1+) (Negative); Nitrite Urine Negative (Negative); PH 5.5 (5.0-9.0); Specific Gravity - Urine >= 1.030 (1.005-1.025); UMIC TRIGGER UACC YES; Urine Blood Negative (Negative); Urine Ketones Trace mg/dL (Negative); Urine Protein 30 (1+) mg/dL (Neg-Trace)
[2023-07-29 13:30] LABS: MANUAL DIFF FLAG NO
[2023-07-29 13:46] LABS: Bacteria Urine None Seen (None Seen); Epith (RTE) Cast Present; RBC Urine 0-2 /HPF (0-2); UACC Culture Trigger YES
[2023-07-29 13:50] LABS: Basophils Absolute Auto 0.1 X10*3/uL (0.0-0.2); Basophils Percent Auto 0.4 % (0-2); Eosinophils Absolute Auto 0.2 X10*3/uL (0.0-0.4); Eosinophils Percent Auto 1.5 % (0-4); Hematocrit 46.8 % (42.0-52.0); Hemoglobin 15.7 g/dl (14.0-18.0); Imm Gran Abs Auto 0.05 X10*3/uL (0.00-0.03); Imm Gran Pct Auto 0.4 % (0.0-0.4); Lymphocytes Absolute Auto 2.2 X10*3/uL (1.2-4.9); Lymphocytes Percent Auto 18.4 % (20-40); Mean Corpuscular HGB Conc 33.5 g/dl (31.0-36.0); Mean Corpuscular Hemoglobin 30.7 pg (27.0-33.0); Mean Corpuscular Volume 91.4 fL (80.0-98.0); Mean Platelet Volume 9.6 fL (9.4-12.4); Monocytes Absolute Auto 0.9 X10*3/uL (0.1-1.2); Monocytes Percent Auto 7.5 % (2-11); Neutrophils Absolute Auto 8.7 x10*3/uL (2.0-8.3); Neutrophils Percent Auto 71.8 % (45-73); Platelet Count 335 X10*3/uL (160-400); Red Blood Count 5.12 X10*6/uL (4.60-5.80); Red Cell Distribution Width 13.3 % (11.0-16.0); White Blood Count 12.1 X10*3/uL (4.8-10.8)
[2023-07-29 14:16] LABS: Alanine Aminotransferase 35 U/L (0-40); Albumin Level 4.6 g/dL (3.5-5.0); Alkaline Phosphatase 70 U/L (39-117); Anion Gap 14 (12-20); Aspartate Amino Transferase 83 U/L (5-37); Bilirubin Total 0.9 mg/dL (0.0-1.0); Blood Urea Nitrogen 22 mg/dL (9-16); Calcium 9.8 mg/dL (8.4-10.2); Carbon Dioxide 24 mmol/L (22-29); Chloride 105 mmol/L (96-108); Cholesterol 251 mg/dL (<200); Estimated Glomerular Filt Rate 55; Glucose Fasting 135 mg/dL (60-99); HDL Cholesterol 54 mg/dL (>40); LDL Cholesterol Calculated 172 mg/dL (<100); Magnesium 2.3 mg/dL (1.6-2.6); Sodium 139 mmol/L (135-145); TSH reflex Free T4 2.25 uIU/mL (0.32-4.0); Total Protein 8.4 g/dL (6.5-8.0); Triglycerides 128 mg/dL (<150)
[2023-07-29 14:42] LABS: Folate 13.4 ng/mL (> or = 4.0)
[2023-07-29 21:04] LABS: Vitamin B12 494 pg/mL (200-900)
== END 2023-07-29 09:28 | disposition home or self-care (01) ==
LOC: HO.HMGCLDS 09:27
PROVIDERS: PCP Nurse Practitioner Family; Visit Provider Nurse Practitioner Family
DX: R41.0 Disorientation, unspecified (principal); D72.829 Elevated white blood cell count, unspecified; Z12.5 Encounter for screening for malignant neoplasm of prostate
CPT/HCPCS: 36415; 80053; 80061; 81001; 82607; 82746; 83735; 84153; 84443; 85025; 87086

== ENCOUNTER 2023-08-20 08:42 | Outpatient (REF) | payer MEDICARE, SELFPAY ==
--- NOTE | ~2023-08-20 | US_ITS ---
EXAMINATION: US ABDOMEN COMPLETE CLINICAL INFORMATION: Abnormal levels of other serum enzymes. COMPARISON: CT abdomen and pelvis 01/28/2023. TECHNIQUE: Real-time imaging of the abdominal viscera. FINDINGS: PANCREAS: There is a question of a hypoechoic, ill-defined mass in the pancreatic tail. ABDOMINAL AORTA: Calcific and noncalcified plaque present in the aorta, but there is no evidence of an aneurysm. INFERIOR VENA CAVA: Visualized portions are normal. LIVER: The liver is normal in size. The liver contour is normal. There is diffuse increased liver parenchymal echogenicity, consistent with hepatic steatosis. No focal hepatic lesion. There is no intrahepatic biliary duct dilatation seen. GALLBLADDER: Normal. The gallbladder is physiologically distended without evidence of stones, sludge, polyps, wall thickening or pericholecystic fluid. COMMON BILE DUCT: Normal in caliber measuring 0.40 cm in diameter. RIGHT KIDNEY: Normal. No hydronephrosis. No renal calculi or focal parenchymal lesions. The kidney measures 10.7 cm in maximum dimension. LEFT KIDNEY: Normal. No hydronephrosis. No renal calculi or focal parenchymal lesions. The kidney measures 10.2 cm in maximum dimension. SPLEEN: The spleen measures 8.8 cm in maximum dimension. A splenic granuloma is present, similar to the 01/28/2023 CT scan. FREE FLUID: None. US/US abdomen complete IMPRESSION: 1. Hepatic steatosis. 2. Question of a hypoechoic mass in the pancreatic tail. MRI is recommended for further evaluation.
== END 2023-08-20 08:43 | disposition home or self-care (01) ==
LOC: HO.HMGCX 08:42
PROVIDERS: PCP Nurse Practitioner Family; Visit Provider Nurse Practitioner Family
DX: R74.8 Abnormal levels of other serum enzymes (principal)
CPT/HCPCS: 76700

== ENCOUNTER → 2023-08-31 07:03 | Outpatient (BNV) | payer MEDICARE, SELFPAY | PROVIDERS: PCP Nurse Practitioner Family; Visit Provider Internal Medicine | DX: I35.1 Nonrheumatic aortic (valve) insufficiency (principal); I34.81 Nonrheumatic mitral (valve) annulus calcification; I36.1 Nonrheumatic tricuspid (valve) insufficiency | CPT/HCPCS: 93306 ==

== ENCOUNTER → 2023-08-31 07:36 | Outpatient (REF) | payer MEDICARE, SELFPAY ==
--- NOTE | 2023-08-31 07:03 | CA_ITS ---
Transthoracic Echocardiogram Amended Patient (Last, First, Middle): Daniel Montilla A Gender: Male Date of : 1950 Age: 72 Procedure Date: 08/31/2023 Procedure Type: Transthoracic Echocardiogram Location: OP Height: 172.72 cm Weight: 90.72 kg BSA: 2.04 m2 Heart Rate: 60 bpm BP: 138 / 80 mmHg Kettle Cook: NEAL Referring MD: Dylan Kovacs MD Symptoms: I77.89 - Other specified disorders of arteries and arterioles Study Quality: Adequate ECG Rhythm: Sinus Conclusions: - The left ventricular systolic function is normal. The calculated ejection fraction is 67% by biplane method. - There is mild aortic valve regurgitation. - There is mild dilatation of the ascending aorta measuring 4.20 cm. Findings Left Ventricle Normal left ventricular cavity size. There is normal left ventricular wall thickness. The left ventricular systolic function is normal. The calculated ejection fraction is 67% by biplane method. There is no evidence of regional wall motion abnormalities. Diastolic function is normal for age. Right Ventricle Mildly increased right ventricular cavity size. There is normal right ventricular systolic function. Atria The left atrium is normal in size. The right atrium is moderately dilated. Aortic Valve There is a normal trileaflet aortic valve. There is no aortic valve stenosis. There is mild aortic valve regurgitation. Mitral Valve There is mild mitral annular calcification. There is trace mitral valve regurgitation. There is no mitral valve stenosis. Pulmonic Valve The pulmonic valve is likely normal. Tricuspid Valve Normal tricuspid valve structure. There is mild tricuspid valve regurgitation. There is no evidence of pulmonary hypertension. Great Vessels The aortic annulus, sinuses of valsalva, and sino tubular ridge are normal in size. There is mild dilatation of the ascending aorta measuring 4.20 cm. Venous The inferior vena cava is normal in size and collapses greater than 50% with inspiration. Pericardium/Pleural There is no evidence of pericardial effusion. Prior Study Comparison Changes noted compared to prior study dated: 09/09/2022. slight increase in ascending aortic size. Measurements 2D Linear Measurements IVSd: 0.88 0.6-0.9/0.6-1.0 cm LVIDd: 5.45 3.9-5.3/4.2-5.9 cm LVIDd Index: 2.67 2.4-3.2/2.2-3.1 cm/m2 LVIDs: 4.36 2.0-3.6 cm LVPWd: 0.73 0.7-1.1 cm LA Diam: 4.30 2.7-3.8/3.0-4.0 cm LAIDs Index: 2.11 1.5-2.3 cm/m2 LV Mass: 196.22 67-162/88-224 g LV Mass Index: 96.19 43-95/49-115 g/m2 LVOT Diam: 2.10 3.0+(-)1.3 cm 2D Volumes LA Vol: 29.40 2D Systolic Function EF 4C: 65.90 >55% EF 2C: 67.50 >55% EF BiP: 66.70 >55% Mitral Valve MV Pk E: 0.75 MV PK A: 0.52 MV Decel Time: 235.00 E/A: 1.40 E'Lateral: 5.66 E'Medial: 5.66 E/E' Med: 13.20 E/E' Lat: 13.20 PHT: 69.00 MVA PHT: 3.19 Decel [place]: 3.17 Aortic Valve AoV Pk Vladimir: 1.49 AoV Mn Vladimir: 1.02 AoV VTI: 0.35 AoV Pk Grad: 9.00 Aov Mn Grad: 5.00 SLY Cont.VTI: 2.99 AI Pk Vladimir: 4.59 AI VTI: 2.64 AI [place]: 2.35 AI Alias Vladimir: 0.39 AI RV - PISA: 21.00 ERO - PISA: 8.00 LVOT LVOT Pk Vladimir: 1.27 LVOT Mn Vladimir: 0.83 LVOT VTI: 0.30 LVOT Pk Grad: 6.00 LVOT Mn Grad: 3.00 LVOT Diam: 2.10 LVOT Area: 3.46 Diastolic Function MV Pk E: 0.75 MV Pk A: 0.52 E/A: 1.40 E'Medial: 5.66 E/E' Med: 13.20 E' Laterial: 5.66 E/E' Lat: 13.20 Right Ventricle TAPSE (mm): 27.70 TVS' Vladimir: 14.90 Tricuspid Valve TR Pk Vladimir: 2.71 TR Pk Grad: 29.00 RA Press: 3.00 RVSP: 32.00 Great Vessels Aorta Sinus of Valsalva: 3.40 2.0-3.5 cm Ao Asc: 4.20 2.1-3.4 cm Pulmonary Veins Pulm Vein S/D 1.50 Pulmonary Valve PV Pk Vladimir: 0.82 Peak PV Grad: 3.00 Updated in Other Vendor System with Status of Final Devyn Og MD electronically signed on 08/31/2023 12:48:01 PM with status of Final
== END ==
LOC: HO.CARD 07:36
PROVIDERS: PCP Nurse Practitioner Family; Visit Provider Internal Medicine Cardiovascular Disease
DX: I77.89 Other specified disorders of arteries and arterioles (principal)
CPT/HCPCS: 93306

== ENCOUNTER 2023-09-15 09:20 | Outpatient (AMB) | payer MEDICARE, SELFPAY ==
[2023-09-15 09:22] VITALS: BP 122/80; PULSE 60; BMI 28.0
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
== END 2023-09-15 10:46 | disposition home or self-care (01) ==
PROVIDERS: PCP Nurse Practitioner Family; Visit Provider Internal Medicine Cardiovascular Disease
DX: I77.89 Other specified disorders of arteries and arterioles (principal); I10 Essential (primary) hypertension
CPT/HCPCS: 99214

== ENCOUNTER → 2023-09-15 09:20 | Outpatient (BNVA) | payer MEDICARE, SELFPAY | PROVIDERS: PCP Nurse Practitioner Family; Visit Provider Internal Medicine Cardiovascular Disease | DX: I45.2 Bifascicular block (principal); I77.89 Other specified disorders of arteries and arterioles; I10 Essential (primary) hypertension | CPT/HCPCS: 99212 ==

== ENCOUNTER 2023-09-28 07:28 | Outpatient (REF) | payer MEDICARE, SELFPAY ==
[2023-09-28 12:22] LABS: Alanine Aminotransferase 14 U/L (0-40); Albumin Level 4.1 g/dL (3.5-5.0); Alkaline Phosphatase 65 U/L (39-117); Anion Gap 11 (12-20); Aspartate Amino Transferase 17 U/L (5-37); Bilirubin Total 0.5 mg/dL (0.0-1.0); Blood Urea Nitrogen 21 mg/dL (9-16); Carbon Dioxide 26 mmol/L (22-29); Chloride 106 mmol/L (96-108); Cholesterol 180 mg/dL (<200); Estimated Glomerular Filt Rate > 60; Glucose Fasting 97 mg/dL (60-99); HDL Cholesterol 54 mg/dL (>40); LDL Cholesterol Calculated 105 mg/dL (<100); Potassium 4.4 mmol/L (3.3-5.1); Sodium 139 mmol/L (135-145); Total Protein 7.2 g/dL (6.5-8.0); Triglycerides 107 mg/dL (<150)
[2023-09-28 12:23] LABS: HBS Num1 0.96 mIU/mL (0-7.99); HBc Num1 0.13 S/CO (0.00-0.79); HBsAGNum1 0.25 S/CO (0.00-0.99); Hepatitis A Antibody IgM 0.13 Index (0-0.79); Hepatitis B Core Antibody Nonreactive (Nonreactive); Hepatitis B Surface Antigen Negative (Negative); ~HepC Num1 0.19 S/CO (0.00-0.79); ~Hepatitis A Antibody IgM Nonreactive (Nonreactive); ~Hepatitis B Surface Antibody NONREACTIVE (Nonreactive); ~Hepatitis C Antibody Nonreactive (Nonreactive)
== END 2023-09-28 07:29 | disposition home or self-care (01) ==
LOC: HO.HMGCLDS 07:28
PROVIDERS: PCP Nurse Practitioner Family; Visit Provider Nurse Practitioner Family
DX: E78.5 Hyperlipidemia, unspecified (principal); R74.8 Abnormal levels of other serum enzymes
CPT/HCPCS: 36415; 80053; 80061; 86704; 86706; 86709; 86803; 87340

== ENCOUNTER 2023-10-12 08:28 | Outpatient (REF) | payer MEDICARE, SELFPAY ==
--- NOTE | ~2023-10-12 | MR_ITS ---
EXAMINATION: MR ABDOMEN WITHOUT AND WITH CONTRAST CLINICAL INFORMATION: Disease of the pancreas. COMPARISON: Abdominal ultrasound 08/20/2023 CT abdomen/pelvis 01/28/2023 TECHNIQUE: MRI of the abdomen before and after the IV administration of 10 mL of Gadavist was obtained using routine sequences. MRCP was not performed. FINDINGS: LUNG BASES: No pleural or pericardial effusion. LIVER AND BILIARY TREE: Loss of signal on opposed phase imaging compatible with hepatic steatosis. No suspicious liver lesion. The common duct measures 5 mm at the edwardo hepatis. No intrahepatic biliary ductal dilatation. No intraductal filling defects. GALLBLADDER: Unremarkable. PANCREAS: Pancreas divisum. No ductal dilatation. No discrete lesion or focus of abnormal enhancement. SPLEEN: Not enlarged. ADRENAL GLANDS: No adrenal mass. KIDNEYS AND URETERS: Unremarkable. LYMPH NODES: No bulky lymphadenopathy. VASCULAR: Normal caliber abdominal aorta. ABDOMINAL WALL: Small fat-containing umbilical hernia. MR/MR abdomen wo/w con IMPRESSION: No discrete pancreatic lesion. Hepatic steatosis.
[2023-10-12] MEDS: gadobutroL 10 ML VIAL IVPUSH (10:32)
== END 2023-10-12 08:29 | disposition home or self-care (01) ==
LOC: HO.MRI 08:28
PROVIDERS: PCP Nurse Practitioner Family; Visit Provider Nurse Practitioner Family
DX: K86.89 Other specified diseases of pancreas (principal)
CPT/HCPCS: 74183; A9585

== ENCOUNTER 2024-01-27 07:48 | Outpatient (AMB) | payer MEDICARE, SELFPAY ==
[2024-01-27 07:50] VITALS: BP 124/72; PULSE 66; O2SAT 99; BMI 30.6
--- NOTE | 2024-01-27 07:50 | MHC.PC.OV ---
Vital Signs 01/27/24 07:50 Height 5 ft 9 in Weight 207 lb BMI 30.6 BP 124/72 Blood Pressure Location Lt brachial Position Sitting Pulse 66 Pulse Oximetry (%) 99 Oxygen Delivery Method Room Air Intake Visit Reasons: 6 month follow up Intake Note: Pt is here today for his 6mo. f/u Allergies No Known Allergies Allergy (Verified 01/27/24 08:25) Medication List - Last Reconciled 01/27/24 by MONICA Cruz atorvastatin 10 mg PO BEDTIME blood sugar diagnostic (FreeStyle Lite Strips) once a day testing blood-glucose meter (FreeStyle Lite Meter kit) once a day testing labetalol 300 mg PO BID 90 days lancets (FreeStyle Lancets) Test blood sugar once a day Tobacco use date assessed: 01/27/24 Fall risk assessment: 2 + Falls in past year Last assessed Fall Risk: 01/27/24 Dental Screening Dental Screen Date: 07/29/23 Did you have a dental visit in the last 12 months?: No Did you have a dental problem in the last 6 months where you did not have access to dental care?: No Was dental information given to patient?: Patient declined HPI 6 month follow up HPI Details HTN: Blood pressure is stable, managed with labetalol 300mg bid. Dyslipidemia: Pt is taking atorvastatin 10mg. Will order labs. Denies chest pain, shortness of breath, headache, dizziness, and blurred vision. Pt's fasting blood sugar was elevated/diabetes. Pt has been watching his diet. Will order labs. Denies polyuria, polydipsia, and neuropathy. Pt reports not drinking alcohol in over 1 year. FORMERLY [facility], [facility] Medical History HTN (hypertension) Ascending aorta enlargement Compression fx, lumbar spine Anemia Aortic regurgitation Surgical History No pertinent past surgical history Family History Father Smoker Lung cancer Mother No problems noted. Brother No problems noted. Sister No problems noted. Social History Household Members: None Housing: House Do you presently have visiting nurse or other home services: No Unable to assess alcohol history related to: Unable to respond Alcohol intake: former Patient Tobacco Use Status: Never used Tobacco Years Smoked: unknown e-Cigarette/Vaping Use: Never Used Substance Use Type: Marijuana service: No Current occupational status: employed Cognitive needs: No Hearing needs: No Vision needs: Yes Questionnaire PHQ-9 Over the last 2 weeks, how often have you been bothered by any of the following problems? 1. Little interest or pleasure in doing things: not at all 2. Feeling down, depressed, or hopeless: not at all 3. Trouble falling or staying asleep, or sleeping too much: not at all 4. Feeling tired or having little energy: not at all 5. Poor appetite or overeating: not at all 6. Feeling bad about yourself - or that you are a failure or have let yourself or your family down: not at all 7. Trouble concentrating on things, such as reading the newspaper or watching television: not at all 8. Moving or speaking so slowly that other people could have noticed. Or the opposite - being so fidgety or restless that you have been moving around a lot more than usual: not at all 9. Thoughts that you would be better off or of hurting yourself in some way: not at all Total score: 0 Depression Screening Interpretation: Negative Depression Screening Done: Yes 02305 - PHQ-9 Billing: Yes Source: Developed by Drs. Gopal Felton, Nancy Jauregui, Mark Virk and colleagues, with an educational sree from [employer]. Thrive Questionnaire Date Thrive assessed: 01/27/24 I am a: Patient What is your living situation today?: I have a steady place to live Within the past 12 months, did the food you bought not last and you didn't have the money to get more?: I choose not to answer this question Within the past 12 months, did you worry whether your food would run out before you got money to buy more?: I choose not to answer this question Do you have trouble paying for medicines?: No Do you have trouble getting transportation to medical appointments?: I choose not to answer this question Do you have trouble paying your heating and electricity bill?: I choose not to answer this question Do you have trouble taking care of your child, family member or friend?: I choose not to answer this question Do you have trouble with day-to-day activities such as bathing, preparing meals, shopping, managing finances, etc.?: I choose not to answer this question Are you currently unemployed and looking for a job?: I choose not to answer this question Are you interested in more education?: I choose not to answer this question Please select the resources that you would like help with: Utilities Currently or been in a relationship where the following occur: I choose not to answer THRIVE Score: 0 AUDIT C Alcohol Use Questionnaire (AUDIT-C) 1. How often do you have a drink containing alcohol?: Never Total Score: 0 SEEMA-7 AMB Questionnaire SEEMA-7 Date SEEMA - 7 assessed: 01/27/24 Feeling nervous, anxious, or on edge: 0 = Not at all Not being able to stop or control worryin = Not at all Worrying too much about different things: 0 = Not at all Trouble relaxin = Not at all Being so restless that it is hard to sit still: 0 = Not at all Becoming easily annoyed or irritable: 0 = Not at all Feeling afraid as if something awful might happen: 0 = Not at all Total SEEMA-7 score (0-4 normal; 5-9 mild; 10-14 moderate; 15-21 severe): 0 Source: Developed by Drs. Gopal Felton, Nanyc Jauregui, Mark Virk and colleagues, with an educational sree from [employer]. Review of Systems Const Reports as per HPI Physical exam (Primary Care) Vital Signs: Last Vital Signs Pulse 66 01/27/24 07:50 BP 124/72 01/27/24 07:50 Pulse Ox 99 01/27/24 07:50 Oxygen Delivery Method Room Air 01/27/24 07:50 BMI result Body Mass Index 30.6 Tobacco/Smoking Status: Tobacco use Status Tobacco use date assessed 01/27/24 01/27/24 07:53 Patient Tobacco Use Status Never used Tobacco 01/27/24 07:53 e-Cigarette/Vaping Use Never Used 01/27/24 07:53 PHQ-9: PHQ-9 Score PHQ-9: Total score 0 01/27/24 08:24 Depression Screening Interpretation: Negative Thrive Assessment: Date of Thrive Assessment Date Thrive assessed 01/27/24 01/27/24 07:56 Currently or been in a relationship where the following occur: I choose not to answer Const General: cooperative Orientation/consciousness: patient oriented x3 Resp Auscultation: clear to auscultation bilaterally Neuro General: patient oriented x3 Extrem Other: bilat feet: lack of sensation with use of monofilament to right toes, more sensation on left Psych Appearance: grossly normal Mental Status: mental status grossly normal Speech and movement: Normal speech and movement present Affect: normal affect Attitude: cooperative Thought process: Normal thought process present Thought content: Normal thought content present Insight: Good insight present (Psych) Judgement: Good judgement present (Psych) Coding Level of Care Code Est Pt Level 3 (86010) Diagnoses HTN (hypertension) I10 Dyslipidemia E78.5 Elevated fasting blood sugar R73.01 Assessment & Plan Assessment & Plan (1) HTN (hypertension): Code(s): I10 - Essential (primary) hypertension Category: Medical Plan: Stable, labs ordered (2) Dyslipidemia: Code(s): E78.5 - Hyperlipidemia, unspecified Category: Medical Plan: Labs ordered (3) Elevated fasting blood sugar: Code(s): R73.01 - Impaired fasting glucose Category: Medical Plan: a1c ordered Plan The patient agreed to the use of a medical physiologist for this encounter. Scribed for Wesley Odell PHARMACY INFORMATICS SPECIALIST- by Falguni Calvin medical physiologist, on 01/27/2024 at 08:15 EST. Orders: Orders UA CC w/rflx Micro + Cult Today E78.5 - Hyperlipidemia, unspecified, I10 - Essential (primary) hypertension Hemoglobin A1c Today E78.5 - Hyperlipidemia, unspecified Microalbumin, Random (w Creat) Today R73.01 - Impaired fasting glucose Pneumococcal 20 Immunization Today Z23 - Encounter for immunization Complete Blood Count Auto Diff Today E78.5 - Hyperlipidemia, unspecified, I10 - Essential (primary) hypertension Comprehensive [place]. Panel Fast Today E78.5 - Hyperlipidemia, unspecified, I10 - Essential (primary) hypertension TSH reflex Free T4 Today E78.5 - Hyperlipidemia, unspecified, I10 - Essential (primary) hypertension Lipid Panel Today E78.5 - Hyperlipidemia, unspecified, I10 - Essential (primary) hypertension Medications: New pneumoc 20-gene conj-dip cr(PF) 0.5 mL IM ONCE 0.5 mL 0RF Z23 - Encounter for immunization
== END 2024-01-27 12:20 | disposition home or self-care (01) ==
PROVIDERS: PCP Nurse Practitioner Family; Visit Provider Nurse Practitioner Family
DX: I10 Essential (primary) hypertension (principal); E78.5 Hyperlipidemia, unspecified; R73.01 Impaired fasting glucose; Z23 Encounter for immunization

== ENCOUNTER → 2024-01-27 07:48 | Outpatient (BNVA) | payer MEDICARE, SELFPAY | PROVIDERS: PCP Nurse Practitioner Family; Visit Provider Nurse Practitioner Family | DX: Z23 Encounter for immunization (principal); I10 Essential (primary) hypertension; E78.5 Hyperlipidemia, unspecified; R73.01 Impaired fasting glucose | CPT/HCPCS: 90471; 90677; 96127; 99212 ==

== ENCOUNTER 2024-02-05 07:41 | Outpatient (REF) | payer MEDICARE, SELFPAY ==
[2024-02-05 11:16] LABS: MANUAL DIFF FLAG NO
[2024-02-05 11:23] LABS: Basophils Absolute Auto 0.1 X10*3/uL (0.0-0.2); Basophils Percent Auto 0.8 % (0-2); Eosinophils Absolute Auto 0.4 X10*3/uL (0.0-0.4); Eosinophils Percent Auto 4.5 % (0-4); Hematocrit 43.1 % (42.0-52.0); Hemoglobin 14.5 g/dl (14.0-18.0); Imm Gran Abs Auto 0.03 X10*3/uL (0.00-0.03); Imm Gran Pct Auto 0.3 % (0.0-0.4); Lymphocytes Absolute Auto 2.2 X10*3/uL (1.2-4.9); Mean Corpuscular HGB Conc 33.6 g/dl (31.0-36.0); Mean Corpuscular Hemoglobin 31.3 pg (27.0-33.0); Mean Corpuscular Volume 93.1 fL (80.0-98.0); Mean Platelet Volume 9.4 fL (9.4-12.4); Monocytes Absolute Auto 0.8 X10*3/uL (0.1-1.2); Monocytes Percent Auto 8.6 % (2-11); Neutrophils Absolute Auto 5.6 x10*3/uL (2.0-8.3); Neutrophils Percent Auto 61.8 % (45-73); Platelet Count 267 X10*3/uL (160-400); Red Blood Count 4.63 X10*6/uL (4.60-5.80)
[2024-02-05 11:28] LABS: Estimated Average Glucose 111 mg/dL; Hemoglobin A1C 132.5275 umol/L; Hemoglobin A1c % 5.5 % (<6.0); Total Hemoglobin (HGBA1C) 3624.0504 umol/L
[2024-02-05 11:52] LABS: Alanine Aminotransferase 17 U/L (0-40); Alkaline Phosphatase 65 U/L (39-117); Anion Gap 10 (12-20); Aspartate Amino Transferase 21 U/L (5-37); Bilirubin Total 0.6 mg/dL (0.0-1.0); Blood Urea Nitrogen 18 mg/dL (9-16); Carbon Dioxide 26 mmol/L (22-29); Chloride 109 mmol/L (96-108); Cholesterol 184 mg/dL (<200); Estimated Glomerular Filt Rate > 60; Glucose Fasting 102 mg/dL (60-99); Glucose Random 102 mg/dL (60-115); HDL Cholesterol 53 mg/dL (>40); LDL Cholesterol Calculated 110 mg/dL (<100); Potassium 5.4 mmol/L (3.3-5.1); Sodium 140 mmol/L (135-145); Total Protein 7.1 g/dL (6.5-8.0); Triglycerides 106 mg/dL (<150)
[2024-02-05 12:09] LABS: TSH reflex Free T4 2.09 uIU/mL (0.32-4.0)
== END 2024-02-05 07:42 | disposition home or self-care (01) ==
LOC: HO.HMGCLDS 07:41
PROVIDERS: PCP Nurse Practitioner Family; Visit Provider Nurse Practitioner Family
DX: E78.5 Hyperlipidemia, unspecified (principal); I10 Essential (primary) hypertension; K86.89 Other specified diseases of pancreas; Z13.1 Encounter for screening for diabetes mellitus
CPT/HCPCS: 36415; 80053; 80061; 83036; 84443; 85025

== ENCOUNTER 2024-02-26 08:27 | Outpatient (REF) | payer MEDICARE, SELFPAY ==
[2024-02-26 11:10] LABS: Anion Gap 8 (12-20); Carbon Dioxide 29 mmol/L (22-29); Chloride 104 mmol/L (96-108); Potassium 4.7 mmol/L (3.3-5.1); Sodium 136 mmol/L (135-145)
== END 2024-02-26 08:28 | disposition home or self-care (01) ==
LOC: HO.HMGCLDS 08:27
PROVIDERS: PCP Nurse Practitioner Family; Visit Provider Nurse Practitioner Family
DX: E87.5 Hyperkalemia (principal)
CPT/HCPCS: 36415; 80051

== ENCOUNTER 2024-08-24 09:09 | Outpatient (AMB) | payer MEDICARE, SELFPAY ==
[2024-08-24 09:13] VITALS: BP 124/80; PULSE 65; O2SAT 95; BMI 29.1
--- NOTE | 2024-08-24 09:13 | A.OFFPC_ITS ---
Vital Signs 08/24/24 09:13 Height 5 ft 9 in Weight 197 lb BMI 29.1 BP 124/80 Blood Pressure Location Lt brachial Position Sitting Pulse 65 Pulse Source Pulse Oximeter Pulse Oximetry (%) 95 Intake Visit Reasons: [employer] Consultant Required: No Accompanied by: Self / Same As Patient Allergies No Known Allergies Allergy (Verified 08/24/24 09:14) Medication List - Last Reconciled 08/24/24 by MONICA Cruz atorvastatin 10 mg PO BEDTIME blood sugar diagnostic (FreeStyle Lite Strips) once a day testing blood-glucose meter (FreeStyle Lite Meter kit) once a day testing labetalol 300 mg PO BID lancets (FreeStyle Lancets) Test blood sugar once a day levetiracetam 750 mg PO BID Tobacco use date assessed: 08/24/24 Fall risk assessment: No Falls in past year Last assessed Fall Risk: 08/24/24 Dental Screening Dental Screen Date: 08/24/24 Did you have a dental visit in the last 12 months?: Yes Did you have a dental problem in the last 6 months where you did not have access to dental care?: No Was dental information given to patient?: Patient has dentist HPI PE HPI Details History of Present Illness The patient is a 73-year-old male presenting for a routine physical examination. He has a history of fasting blood sugar but no additional complications or management details were provided. He reports experiencing a weak urinary stream, though there are no associated symptoms of bladder emptying concerns. He sees cardiology on a regular basis The patient has been a chronic marijuana user, consuming it regularly and frequently over multiple years. Despite this, he denies respiratory symptoms such as shortness of breath or chest pain. However, scattered wheezing was noted during the examination, although he refused further pulmonary diagnostic assessments at this visit. Patient did report last week he had another episode his friend reported, where he kind of went with a blank stare for a short duration. Question seizure activity. He is following up with his neurologist in 2 weeks Health Maintenance - PSA screening was discussed for [employer] [facility], with the patient declining a digital rectal exam. - Cologuard screening test was confirmed as up to date. Social History - Chronic daily marijuana use over multi ple years Review of Systems - Respiratory: Denies shortness of breat h, denies chest pain - Gastrointestinal: Denies abdominal scott n, denies blood in stool, denies constipation, denies diarrhea - Genitourinary: Reports weak urinary st ream; denies incomplete bladder emptying - Psychiatry: Denies suicidal ideation, denies homicidal ideation Physical Exam General: Cooperative, healthy appearing, comfortable, no acute distress and well developed Orientation: Patient oriented x3 Limitations: No limitations Head: Normal to inspection Ears: Hearing grossly normal bilaterally Nose: Normal external nose present Face and sinus: Normal facial exam Eyes: Appearance normal, both eyes and all related structures Neck: Normal visual inspection and Yes full ROM Respiratory: Some scattered wheezing, but moving good air. Able to speak in complete sentences. Cardiovascular: Regular rate and rhythm. Normal S1 and S2 GI: Normal to inspection. Soft to palpation and nontender Skin: No rashes or lesions noted Neuro: Patient oriented x3 Extremities: Normal to inspection Results Plan PSA screening will be performed related to prostate health. Further evaluation of the patient's urinary stream is postponed as he declined further assessment; monitoring for any symptoms progression is advised. Despite noted wheezing, further pulmonary evaluations were refused; symptoms will be monitored, and urgency in seeking care if conditions worsen was advised. Cologuard for colon cancer screening was confirmed as up to date. Discussion Notes During the visit, I discussed the patient's urinary symptoms, suggesting PSA screening as part of the prostate health evaluation, though the patient consented only to this form of screening. The patient chose not to undergo further urological or pulmonary assessments at this time. We went over the health risks of chronic marijuana smoking, and the potential link to his respiratory findings was mentioned, underscoring the importance of monitoring his symptoms. I reinforced the importance of routine check-ups and advised on immediate medical attention if any acute symptoms arise, scheduling a follow-up in six months. The patient was reminded that his Cologuard is up to date, further supporting his health maintenance. Patient Instructions - Follow-up for any changes or concerns regarding urinary symptoms. - Monitor for any respiratory changes or worsening of wheezing. - Contact medical services in case of em ergent respiratory symptoms. - Adhere to upcoming PSA screening to [facility]. - Continue current health maintenance sc reening as discussed. -follow up with neurology [facility] Medical History HTN (hypertension) Ascending aorta enlargement Compression fx, lumbar spine Anemia Aortic regurgitation Surgical History No pertinent past surgical history Family History Father Smoker Lung cancer Mother No problems noted. Brother No problems noted. Sister No problems noted. Social History Household Members: None Housing: House Do you presently have visiting nurse or other home services: No Unable to assess alcohol history related to: Unable to respond Alcohol intake: former Patient Tobacco Use Status: Never used Tobacco Years Smoked: unknown e-Cigarette/Vaping Use: Never Used Substance Use Type: Marijuana service: No Current occupational status: employed Cognitive needs: No Hearing needs: No Vision needs: Yes Questionnaire PHQ-9 Over the last 2 weeks, how often have you been bothered by any of the following problems? 1. Little interest or pleasure in doing things: several days 2. Feeling down, depressed, or hopeless: not at all 3. Trouble falling or staying asleep, or sleeping too much: several days 4. Feeling tired or having little energy: several days 5. Poor appetite or overeating: several days 6. Feeling bad about yourself - or that you are a failure or have let yourself or your family down: not at all 7. Trouble concentrating on things, such as reading the newspaper or watching television: not at all 8. Moving or speaking so slowly that other people could have noticed. Or the opposite - being so fidgety or restless that you have been moving around a lot more than usual: not at all 9. Thoughts that you would be better off or of hurting yourself in some way: not at all Total score: 4 Depression Screening Interpretation: Negative Depression Screening Done: Yes 75863 - PHQ-9 Billing: Yes Source: Developed by Drs. Gopal Felton, Nancy Jauregui, Mark Virk and colleagues, with an educational sree from [employer]. Thrive Questionnaire Date Thrive assessed: 08/24/24 I am a: Patient What is your living situation today?: I have a steady place to live Within the past 12 months, did the food you bought not last and you didn't have the money to get more?: Never true Within the past 12 months, did you worry whether your food would run out before you got money to buy more?: I choose not to answer this question Do you have trouble paying for medicines?: I choose not to answer this question Do you have trouble getting transportation to medical appointments?: No Do you have trouble paying your heating and electricity bill?: Yes Do you have trouble taking care of your child, family member or friend?: No Do you have trouble with day-to-day activities such as bathing, preparing meals, shopping, managing finances, etc.?: No Are you currently unemployed and looking for a job?: No Are you interested in more education?: No Please select the resources that you would like help with: None Currently or been in a relationship where the following occur: No concerns reported THRIVE Score: 1 AUDIT C Alcohol Use Questionnaire (AUDIT-C) 1. How often do you have a drink containing alcohol?: Never 3. How often do you have six or more drinks on one occasion?: Never Total Score: 0 Score Reviewed/Action Taken: Yes SEEMA-7 AMB Questionnaire SEEMA-7 Date SEEMA - 7 assessed: 08/24/24 Feeling nervous, anxious, or on edge: 0 = Not at all Not being able to stop or control worryin = Not at all Worrying too much about different things: 0 = Not at all Trouble relaxin = Not at all Being so restless that it is hard to sit still: 0 = Not at all Becoming easily annoyed or irritable: 0 = Not at all Feeling afraid as if something awful might happen: 0 = Not at all Total SEEMA-7 score (0-4 normal; 5-9 mild; 10-14 moderate; 15-21 severe): 0 Source: Developed by Drs. Gopal Felton, Nancy Jauregui, Mark Virk and colleagues, with an educational sree from [employer]. SEEMA-7 Assessment Billing SEEMA-7 Assessment Tool: SEEMA-7 Assessment 03962 Physical exam (Primary Care) Vital Signs: Last Vital Signs Pulse 65 08/24/24 09:13 BP 124/80 08/24/24 09:13 Pulse Ox 95 08/24/24 09:13 BMI result Body Mass Index 29.1 Tobacco/Smoking Status: Tobacco use Status Tobacco use date assessed 08/24/24 08/24/24 09:14 Patient Tobacco Use Status Never used Tobacco 08/24/24 09:14 e-Cigarette/Vaping Use Never Used 08/24/24 09:14 PHQ-9: PHQ-9 Score PHQ-9: Total score 4 08/24/24 09:14 Depression Screening Interpretation: Negative Thrive Assessment: Date of Thrive Assessment Date Thrive assessed 08/24/24 08/24/24 09:14 Currently or been in a relationship where the following occur: No concerns reported Coding Level of Care Code Est Pt Prev Care >65y(18841) Diagnoses Encounter for routine adult physical exam with abnormal findings Z00. Screening PSA (prostate specific antigen) Z12.5 Seizure R56.9 Elevated fasting blood sugar R73.01 Additional Codes SEEMA-7 Assessment Billing - SEEMA-7 Assessment Tool: SEEMA-7 Assessment 07364 ([id number]) PHQ-9 - 08557 - PHQ-9 Billing: Yes ([id number]) Assessment & Plan Assessment & Plan (1) Encounter for routine adult physical exam with abnormal findings: Code(s): Z00.01 - Encounter for general adult medical examination with abnormal findings Category: Medical (2) Screening PSA (prostate specific antigen): Code(s): Z12.5 - Encounter for screening for malignant neoplasm of prostate Category: Medical (3) Seizure: Code(s): R56.9 - Unspecified convulsions Category: Medical (4) Elevated fasting blood sugar: Code(s): R73.01 - Impaired fasting glucose Category: Medical Plan . Orders: Orders Comprehensive [place]. Panel Fast Today Z00.01 - Encounter for general adult medical examination with abnormal findings UA CC w/rflx Micro + Cult Today Z00.01 - Encounter for general adult medical examination with abnormal findings Prostate Specific Antigen Scr Today Z12.5 - Encounter for screening for malignant neoplasm of prostate Complete Blood Count Auto Diff Today Z00.01 - Encounter for general adult medical examination with abnormal findings TSH reflex Free T4 Today Z00.01 - Encounter for general adult medical examination with abnormal findings Lipid Panel Today Z00.01 - Encounter for general adult medical examination with abnormal findings Hemoglobin A1c Today R73.01 - Impaired fasting glucose, Z00.01 - Encounter for general adult medical examination with abnormal findings Microalbumin, Random (w Creat) Today R73.01 - Impaired fasting glucose, Z00.01 - Encounter for general adult medical examination with abnormal findings
== END 2024-08-24 10:31 | disposition home or self-care (01) ==
LOC: HO.HMCC 09:10
PROVIDERS: PCP Nurse Practitioner Family; Visit Provider Nurse Practitioner Family
DX: Z00.01 Encounter for general adult medical examination with abnormal findings (principal); Z12.5 Encounter for screening for malignant neoplasm of prostate; R56.9 Unspecified convulsions; R73.01 Impaired fasting glucose

== ENCOUNTER → 2024-08-24 09:09 | Outpatient (BNVA) | payer MEDICARE, SELFPAY | PROVIDERS: PCP Nurse Practitioner Family; Visit Provider Nurse Practitioner Family | DX: Z00.01 Encounter for general adult medical examination with abnormal findings (principal); R56.9 Unspecified convulsions; R73.01 Impaired fasting glucose | CPT/HCPCS: 96127; 99397 ==

== ENCOUNTER 2024-08-26 08:55 | Outpatient (REF) | payer MEDICARE, SELFPAY ==
[2024-08-26 11:05] LABS: MANUAL DIFF FLAG NO
[2024-08-26 11:13] LABS: Basophils Absolute Auto 0.1 X10*3/uL (0.0-0.2); Basophils Percent Auto 0.9 % (0-2); Eosinophils Absolute Auto 0.3 X10*3/uL (0.0-0.4); Eosinophils Percent Auto 3.6 % (0-4); Hematocrit 42.8 % (42.0-52.0); Hemoglobin 14.2 g/dl (14.0-18.0); Imm Gran Abs Auto 0.01 X10*3/uL (0.00-0.03); Imm Gran Pct Auto 0.1 % (0.0-0.4); Lymphocytes Absolute Auto 2.4 X10*3/uL (1.2-4.9); Lymphocytes Percent Auto 29.9 % (20-40); Mean Corpuscular HGB Conc 33.2 g/dl (31.0-36.0); Mean Corpuscular Hemoglobin 30.7 pg (27.0-33.0); Mean Corpuscular Volume 92.6 fL (80.0-98.0); Mean Platelet Volume 9.4 fL (9.4-12.4); Monocytes Absolute Auto 0.6 X10*3/uL (0.1-1.2); Monocytes Percent Auto 7.9 % (2-11); Neutrophils Absolute Auto 4.7 x10*3/uL (2.0-8.3); Neutrophils Percent Auto 57.6 % (45-73); Platelet Count 263 X10*3/uL (160-400); Red Blood Count 4.62 X10*6/uL (4.60-5.80); Red Cell Distribution Width 13.2 % (11.0-16.0); White Blood Count 8.1 X10*3/uL (4.8-10.8)
[2024-08-26 11:17] LABS: Estimated Average Glucose 117 mg/dL; Hemoglobin A1c % 5.7 % (<6.0)
[2024-08-26 11:21] LABS: Appearance Urine Clear; Color Urine Yellow; Glucose Urine UA Negative (Negative); Leukocyte Esterase Urine Trace (Negative); Nitrite Urine Negative (Negative); Specific Gravity - Urine 1.015 (1.005-1.025); UMIC TRIGGER UACC YES; Urine Blood Negative (Negative); Urine Ketones Negative (Negative); Urine Protein Negative (Neg-Trace)
[2024-08-26 11:30] LABS: Bacteria Urine None Seen (None Seen); Hyaline Casts Urine 0-2 /LPF (0-2); RBC Urine 0-2 /HPF (0-2); Squamous Epithelial Cell Urine 0-2 /HPF (0-2); WBC Urine 0-5 /HPF (0-5)
[2024-08-26 11:48] LABS: Alanine Aminotransferase 18 U/L (0-40); Albumin Level 4.1 g/dL (3.5-5.0); Alkaline Phosphatase 66 U/L (39-117); Anion Gap 12 (12-20); Aspartate Amino Transferase 24 U/L (5-37); Bilirubin Total 0.6 mg/dL (0.0-1.0); Blood Urea Nitrogen 15 mg/dL (9-16); Calcium 9.3 mg/dL (8.4-10.2); Carbon Dioxide 27 mmol/L (22-29); Chloride 107 mmol/L (96-108); Cholesterol 227 mg/dL (<200); Estimated Glomerular Filt Rate > 60; Glucose Fasting 104 mg/dL (60-99); HDL Cholesterol 52 mg/dL (>40); LDL Cholesterol Calculated 150 mg/dL (<100); Potassium 4.4 mmol/L (3.3-5.1); Sodium 142 mmol/L (135-145); TSH reflex Free T4 2.84 uIU/mL (0.32-4.0); Total Protein 7.1 g/dL (6.5-8.0); Triglycerides 125 mg/dL (<150)
[2024-08-26 11:49] LABS: Prostate Specific Antigen Scr 0.76 ng/mL (<0.05-4.0)
[2024-08-26 12:03] LABS: Creatinine Urine 95.93 mg/dL; Microalbumin Urine < 5.0 mg/L
== END 2024-08-26 08:56 | disposition home or self-care (01) ==
LOC: HO.HMGCLDS 08:55
PROVIDERS: PCP Nurse Practitioner Family; Visit Provider Nurse Practitioner Family
DX: Z00.01 Encounter for general adult medical examination with abnormal findings (principal); R73.01 Impaired fasting glucose; Z12.5 Encounter for screening for malignant neoplasm of prostate; Z13.6 Encounter for screening for cardiovascular disorders
CPT/HCPCS: 36415; 80053; 80061; 81001; 82043; 82570; 83036; 84153; 84443; 85025

== ENCOUNTER → 2024-09-11 08:17 | Outpatient (REF) | payer MEDICARE, SELFPAY ==
--- NOTE | 2024-09-11 08:20 | CA_ITS ---
Transthoracic Echocardiogram Patient (Last, First, Middle): Daniel Montilla A Gender: Male Date of : 1950 Age: 73 Procedure Date: 09/11/2024 Procedure Type: Transthoracic Echocardiogram Location: OP Height: 172.72 cm Weight: 90.72 kg BSA: 2.04 m2 Heart Rate: 64 bpm BP: 128 / 74 mmHg Regional Clinical Research Associate: NEAL Referring MD: Dylan Kovacs MD Button Tufter: Dylan Kovacs MD Symptoms: I77.89 - Other specified disorders of arteries and arterioles Study Quality: Adequate ECG Rhythm: Sinus Conclusions: - 1. Normal LV ejection fraction of 60 65% with impaired relaxation filling pattern 2. Mildly dilated left atrium 3. Mild aortic and mitral regurgitation 4. Normal RV systolic pressure 5. Moderately dilated ascending aorta 6. No gross pericardial effusion Findings Left Ventricle Normal left ventricular size, thickness, and systolic function. The visually estimated ejection fraction is between 60-65%. Spectral Doppler is indicative of an impaired relaxation filling pattern. E/E prime ratio is between 8 and 15 consistent with indeterminate filling pressures. Right Ventricle Normal right ventricular cavity size and systolic function. Atria The left atrium is mildly dilated. There is lipomatous hypertrophy of the interatrial septum. There is no evidence of interatrial shunt. The right atrium is normal in size. Aortic Valve Normal aortic valve structure and function. There is no aortic valve stenosis. There is mild aortic valve regurgitation. Mitral Valve There is mild anterior and posterior mitral leaflet thickening. There is mild mitral valve regurgitation. There is no mitral valve stenosis. Pulmonic Valve The pulmonic valve is likely normal. Tricuspid Valve Normal tricuspid valve structure. There is mild tricuspid valve regurgitation. The right ventricular systolic pressure is normal. The right ventricular systolic pressure is 27 mmHg. Normal right atrial pressure. There is no evidence of pulmonary hypertension. Great Vessels The pulmonary artery was not well visualized. There is moderate dilatation of the ascending aorta measuring 4.50 cm. Venous The inferior vena cava is normal in size and collapses greater than 50% with inspiration. Pericardium/Pleural There is no evidence of pericardial effusion. Prior Study Comparison Changes noted compared to prior study dated: 08/31/2023. ascending aorta is moderately enlarged Measurements 2D Linear Measurements IVSd: 0.90 0.6-0.9/0.6-1.0 cm LVIDd: 5.09 3.9-5.3/4.2-5.9 cm LVIDd Index: 2.50 2.4-3.2/2.2-3.1 cm/m2 LVIDs: 3.85 2.0-3.6 cm LVPWd: 0.86 0.7-1.1 cm LA Diam: 4.30 2.7-3.8/3.0-4.0 cm LAIDs Index: 2.11 1.5-2.3 cm/m2 LV Mass: 196.98 67-162/88-224 g LV Mass Index: 96.56 43-95/49-115 g/m2 LVOT Diam: 2.30 3.0+(-)1.3 cm 2D Systolic Function EF 4C: 56.80 >55% EF 2C: 65.20 >55% EF BiP: 61.40 >55% Mitral Valve MV Pk E: 0.60 MV PK A: 0.86 MV Decel Time: 243.00 E/A: 0.70 E'Lateral: 6.20 E'Medial: 5.11 E/E' Med: 11.70 E/E' Lat: 9.70 PHT: 71.00 MVA PHT: 3.10 Decel [place]: 2.47 Aortic Valve AoV Pk Vladimir: 1.42 AoV Pk Grad: 8.00 SLY: 3.27 AI Pk Vladimir: 4.63 AI VTI: 2.65 AI [place]: 2.20 AI Alias Vladimir: 0.39 AI RV - PISA: 21.00 ERO - PISA: 8.00 LVOT LVOT Pk Vladimir: 1.21 LVOT Mn Vladimir: 0.81 LVOT VTI: 0.27 LVOT Pk Grad: 6.00 LVOT Mn Grad: 3.00 LVOT Diam: 2.30 LVOT Area: 4.15 Diastolic Function MV Pk E: 0.60 MV Pk A: 0.86 E/A: 0.70 E'Medial: 5.11 E/E' Med: 11.70 E' Laterial: 6.20 E/E' Lat: 9.70 Right Ventricle TAPSE (mm): 24.90 TVS' Vladimir: 10.70 Tricuspid Valve TR Pk Vladimir: 2.45 TR Pk Grad: 24.00 RA Press: 3.00 RVSP: 27.00 Great Vessels Aorta Sinus of Valsalva: 3.60 2.0-3.5 cm Ao Asc: 4.50 2.1-3.4 cm Ao Arch: 2.80 Pulmonary Veins Pulm Vein S/D 1.10 Pulmonary Valve PV Pk Vladimir: 0.81 Peak PV Grad: 3.00 Updated in Other Vendor System with Status of Final Dylan Kovacs MD electronically signed on 09/12/2024 5:42:44 PM with status of Final
== END ==
LOC: HO.CARD 08:17
PROVIDERS: PCP Nurse Practitioner Family; Visit Provider Internal Medicine Cardiovascular Disease
DX: I77.89 Other specified disorders of arteries and arterioles (principal)
CPT/HCPCS: 93306

== ENCOUNTER → 2024-09-11 08:20 | Outpatient (BNV) | payer MEDICARE, SELFPAY | PROVIDERS: PCP Nurse Practitioner Family; Visit Provider Internal Medicine Cardiovascular Disease | DX: I35.1 Nonrheumatic aortic (valve) insufficiency (principal); I34.0 Nonrheumatic mitral (valve) insufficiency; I36.1 Nonrheumatic tricuspid (valve) insufficiency; I71.21 Aneurysm of the ascending aorta, without rupture | CPT/HCPCS: 93306 ==

== ENCOUNTER 2024-09-18 09:41 | Outpatient (AMB) | payer MEDICARE, SELFPAY ==
[2024-09-18 09:58] VITALS: BP 132/72; PULSE 58; BMI 28.6
--- NOTE | 2024-09-18 09:58 | MHC.OFFVIS ---
Vital Signs 09/18/24 09:58 Height 5 ft 9 in Weight 193 lb 9.054 oz BMI 28.6 BP 132/72 Blood Pressure Location Lt brachial Position Sitting Pulse 58 Pulse Source Monitor Intake Visit Reasons: 1 yr f/up echo Intake Note: 1 yr f/up-echo Line Producer Required: No Accompanied by: Spouse Allergies No Known Allergies Allergy (Verified 08/24/24 09:14) Medication List - Last Reconciled 09/18/24 by Dylan Kovacs MD atorvastatin 20 mg PO BEDTIME blood sugar diagnostic (FreeStyle Lite Strips) once a day testing blood-glucose meter (FreeStyle Lite Meter kit) once a day testing labetalol 300 mg PO BID lancets (FreeStyle Lancets) Test blood sugar once a day levetiracetam 750 mg PO BID HPI Comments Details: Daniel comes for follow-up. Recent echocardiogram shows further enlargement of ascending aorta at 4.5 cm. He continues to have no cardiac symptoms. Denies any exertional chest pain or shortness of breath. Takes his blood pressure medications regularly. Recently started on atorvastatin for elevated LDL although he says he takes his inconsistently. He denies any exertional chest pain or shortness of breath. No prolonged palpitation. No lightheadedness, syncope. No heart failure symptoms. [facility] Medical History (Updated 09/18/24 @ 10:20 by Dylan Kovacs MD) Ascending aorta enlargement HTN (hypertension) Compression fx, lumbar spine Anemia Aortic regurgitation Surgical History No pertinent past surgical history Family History Father Smoker Lung cancer Mother No problems noted. Brother No problems noted. Sister No problems noted. Social History Household Members: None Housing: House Do you presently have visiting nurse or other home services: No Unable to assess alcohol history related to: Unable to respond Alcohol intake: former Patient Tobacco Use Status: Never used Tobacco Years Smoked: unknown e-Cigarette/Vaping Use: Never Used Substance Use Type: Marijuana service: No Current occupational status: employed Cognitive needs: No Hearing needs: No Vision needs: Yes Review of Systems Const Denies chills, Denies fatigue, Denies fever(s), Denies frequent falls, Denies weakness, Denies weight gain and Denies weight loss ENT Denies dizziness Card Denies chest pain, Denies leg edema, Denies lightheadedness, Denies palpitations, Denies dyspnea and Denies dyspnea on exertion Resp Denies cough, Denies dyspnea and Denies dyspnea on exertion GI Denies hematochezia Musc Denies abnormal gait, Denies muscle weakness, Denies numbness, Denies radiating pain into limb and Denies tingling Neuro Denies abnormal gait, Denies dizziness, Denies frequent falls, Denies numbness, Denies tingling and Denies weakness Endo Denies fatigue and Denies palpitations Physical Exam Vital Signs: Last Vital Signs Pulse 58 09/18/24 09:58 BP 132/72 09/18/24 09:58 BMI result Body Mass Index 28.6 Const General: cooperative, comfortable, no acute distress, alert and awake Nutritional Appearance: overweight Orientation/consciousness: patient oriented x3 Limitations: no limitations Neck Neck: Yes trachea midline, Yes supple and Yes no JVD Resp Effort & Inspection: normal respiratory effort Auscultation: wheezes scattered wheezes Cardio Jugular venous distension: no JVD Palpation: normal PMI Rate: regular rate Rhythm: regular rhythm Heart sounds: S1 normal heart sound present and S2 normal heart sound present GI Auscultation: normal bowel sounds Skin General skin exam: no rashes or lesions noted Neuro General: patient oriented x3 and no focal motor deficits Extrem General: Yes no clubbing, cyanosis or edema Psych Appearance: grossly normal Office Procedures EKG Details: EKG shows normal sinus rhythm with 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 He has no symptoms related to it. I discussed with him about management. Currently does not require any surgical interventions. Will continue monitor annually by echocardiogram. Aggressive blood pressure and lipid modification was discussed. Importance of statin therapy was discussed. Follow-up lipid panel after regular therapy in 3 months time to target goal LDL less than 100 mg/dL. Strongly recommend to avoid strenuous isometric exercise. Discussed with him also to seek emergency care for sudden-onset severe chest pain. Symptoms of acute aortic syndrome were discussed. He showed understanding. (2) HTN (hypertension): Code(s): I10 - Essential (primary) hypertension Category: Medical Plan: Hypertension which is currently well optimized on current therapy. Importance of good blood pressure control was discussed. Advised to monitor blood pressure at home maintain a log. Goal blood pressure less than 130/84. Low-salt diet was discussed. Encouraged to maintain regular aerobic exercise as tolerated. Will follow up in the clinic in 1 year's time, sooner p.r.n.. Thank you for allowing me to partake in his care Orders: Orders CA echo transthoracic complete 1 Year I71.21 - Aneurysm of the ascending aorta, without rupture Coding Level of Care Code Est Pt Level 4 (68088) Complex EM visit Add On G2211 Diagnoses Ascending aortic aneurysm I71.21 HTN (hypertension) I10 CPT Codes EKG - CPT: 28660-[id number], Complete ([id number])
== END 2024-09-18 10:18 | disposition home or self-care (01) ==
PROVIDERS: PCP Nurse Practitioner Family; Visit Provider Internal Medicine Cardiovascular Disease
DX: I71.21 Aneurysm of the ascending aorta, without rupture (principal); I10 Essential (primary) hypertension
CPT/HCPCS: 93010; 99214; G2211

== ENCOUNTER → 2024-09-18 09:41 | Outpatient (BNVA) | payer MEDICARE, SELFPAY | PROVIDERS: PCP Nurse Practitioner Family; Visit Provider Internal Medicine Cardiovascular Disease | DX: I71.21 Aneurysm of the ascending aorta, without rupture (principal); I10 Essential (primary) hypertension | CPT/HCPCS: 93005; 99212 ==

== ENCOUNTER 2024-10-21 08:40 | Outpatient (REF) | payer MEDICARE, SELFPAY ==
[2024-10-21 11:36] LABS: Alanine Aminotransferase 12 U/L (0-40); Albumin Level 4.2 g/dL (3.5-5.0); Alkaline Phosphatase 66 U/L (39-117); Anion Gap 12 (12-20); Aspartate Amino Transferase 22 U/L (5-37); Blood Urea Nitrogen 15 mg/dL (9-16); Calcium 9.2 mg/dL (8.4-10.2); Carbon Dioxide 27 mmol/L (22-29); Chloride 106 mmol/L (96-108); Cholesterol 159 mg/dL (<200); Estimated Glomerular Filt Rate > 60; HDL Cholesterol 54 mg/dL (>40); Potassium 4.8 mmol/L (3.3-5.1); Sodium 140 mmol/L (135-145); Total Protein 6.9 g/dL (6.5-8.0); Triglycerides 78 mg/dL (<150)
== END 2024-10-21 08:41 | disposition home or self-care (01) ==
LOC: HO.HMGCLDS 08:40
PROVIDERS: PCP Nurse Practitioner Family; Visit Provider Nurse Practitioner Family
DX: E78.5 Hyperlipidemia, unspecified (principal)
CPT/HCPCS: 36415; 80053; 80061

== ENCOUNTER 2024-10-24 08:25 | Outpatient (AMB) | payer MEDICARE, SELFPAY ==
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
== END 2024-10-24 10:04 | disposition home or self-care (01) ==
LOC: HO.HSM 08:25
PROVIDERS: PCP Nurse Practitioner Family; Referring Provider Nurse Practitioner Family; Visit Provider Registered Nurse
DX: G40.909 Epilepsy, unspecified, not intractable, without status epilepticus (principal)
CPT/HCPCS: 99214

== ENCOUNTER → 2024-10-24 08:25 | Outpatient (BNVA) | payer MEDICARE, SELFPAY | PROVIDERS: PCP Nurse Practitioner Family; Referring Provider Nurse Practitioner Family; Visit Provider Registered Nurse | DX: G40.909 Epilepsy, unspecified, not intractable, without status epilepticus (principal); Z79.899 Other long term (current) drug therapy | CPT/HCPCS: 99212 ==

== ENCOUNTER 2025-02-27 08:41 | Outpatient (AMB) | payer MEDICARE, SELFPAY ==
--- NOTE | 2025-02-27 09:00 | MHC.PC.OV ---
Vital Signs 02/27/25 09:02 Height 5 ft 9 in Weight 191 lb BMI 28.2 BP 112/62 Blood Pressure Location Rt brachial Position Sitting Respiration 16 Pulse 63 Pulse Oximetry (%) 99 Intake Visit Reasons: 6m follow up Historical Site Guide Required: No Accompanied by: Self / Same As Patient Allergies No Known Allergies Allergy (Verified 02/27/25 09:02) Medication List - Last Reconciled 02/27/25 by MONICA Cruz atorvastatin 20 mg PO BEDTIME blood sugar diagnostic (FreeStyle Lite Strips) once a day testing blood-glucose meter (FreeStyle Lite Meter kit) once a day testing labetalol 300 mg PO BID lancets (FreeStyle Lancets) Test blood sugar once a day levetiracetam 750 mg PO BID 90 days Tobacco use date assessed: 02/27/25 Dental Screening Dental Screen Date: 02/27/25 Did you have a dental visit in the last 12 months?: No Did you have a dental problem in the last 6 months where you did not have access to dental care?: No Was dental information given to patient?: Patient declined HPI 6m follow up HPI Details Chief Complaint The patient presents for a follow-up visit for dyslipidemia. History of Present Illness The patient is a 74 year old individual presenting for a follow-up for dyslipidemia. The patient is prescribed a statin for this condition but has not been taking it recently. HTN: stable The patient reports feeling well overall and denies any chest pain, increased shortness of breath, headache, blurred vision, or dizziness. The patient has some macular lesions on the face that the patient wishes to have evaluated. Social History Health Maintenance Vaccinations were discussed, and written information was provided for the patient to obtain them at a pharmacy. Review of Systems - General: Reports feeling well. - Cardiovascular: Denies chest pain. - Respiratory: Denies increased shortness of breath. - Neurological: Denies headache, blurred vision, and dizziness. - Integumentary: Reports macular lesions on the face and a slightly raised, skin-colored lesion on the right cheek. Physical Exam General: Cooperative, healthy appearing, comfortable, no acute distress and well developed Orientation: Patient oriented x3 Limitations: No limitations Head: Normal to inspection Ears: Hearing grossly normal bilaterally Nose: Normal external nose present Face and sinus: Normal facial exam Eyes: Appearance normal, both eyes and all related structures Neck: Normal visual inspection and Yes full ROM Respiratory: Normal respiratory effort and able to speak in complete sentences. Diminished bilaterally to auscultation Cardiovascular: Regular rate and rhythm. Diminished S1 and S2 GI: Normal to inspection. Soft to palpation and nontender Skin: Some macular lesions to the face, including a slightly raised, skin-colored lesion on the right facial cheek. Scattered macular lesions to the face with darker pigmentation Neuro: Patient oriented x3 Extremities: Normal to inspection Results Plan 1. Dyslipidemia The patient has been non-adherent with statin therapy. The plan is to restart atorvastatin 20 mg. The patient will take the medication during the day due to preference. A lipid panel will be rechecked in approximately two months. 2. Facial Skin Lesions The patient has macular lesions and a slightly raised, skin-colored lesion on the face. A referral will be sent to dermatology for evaluation. 3. HTN: stable Discussion Notes I discussed the importance of restarting statin therapy for dyslipidemia and counseled the patient to restart atorvastatin 20 mg. I advised that we will recheck lipid levels in about two months. Per the patient's request, I am placing a referral to dermatology for evaluation of facial skin lesions. I also provided the patient with written information regarding recommended vaccinations to be obtained at the pharmacy. Patient Instructions - Please restart your atorvastatin 20 mg medication daily for your cholesterol. - You can take your statin during the day if you prefer. - You will need to have your blood drawn in about 2 months to check your cholesterol levels. - We will send a referral to a skin doctor (ordnance handler) to have the spots on your face checked. - Please get your recommended vaccinations at your pharmacy. [facility] Medical History (Updated 02/27/25 @ 09:26 by MONICA Cruz) Seizure disorder Ascending aorta enlargement HTN (hypertension) Compression fx, lumbar spine Anemia Aortic regurgitation Surgical History No pertinent past surgical history Family History Father Smoker Lung cancer Mother No problems noted. Brother No problems noted. Sister No problems noted. Social History Household Members: None Housing: House Do you presently have visiting nurse or other home services: No Unable to assess alcohol history related to: Unable to respond Alcohol intake: former Patient Tobacco Use Status: Never used Tobacco Years Smoked: unknown e-Cigarette/Vaping Use: Never Used Substance Use Type: Marijuana service: No Current occupational status: employed Cognitive needs: No Hearing needs: No Vision needs: Yes Questionnaire PHQ-9 Over the last 2 weeks, how often have you been bothered by any of the following problems? 1. Little interest or pleasure in doing things: not at all Source: Developed by Drs. Gopal Felton, Nancy Jauregui, Mark Virk and colleagues, with an educational sree from [employer]. Thrive Questionnaire Date Thrive assessed: 08/24/24 I am a: Patient What is your living situation today?: I have a steady place to live Within the past 12 months, did the food you bought not last and you didn't have the money to get more?: Never true Within the past 12 months, did you worry whether your food would run out before you got money to buy more?: I choose not to answer this question Do you have trouble paying for medicines?: I choose not to answer this question Do you have trouble getting transportation to medical appointments?: No Do you have trouble paying your heating and electricity bill?: Yes Do you have trouble taking care of your child, family member or friend?: No Do you have trouble with day-to-day activities such as bathing, preparing meals, shopping, managing finances, etc.?: No Are you currently unemployed and looking for a job?: No Are you interested in more education?: No Please select the resources that you would like help with: None Currently or been in a relationship where the following occur: No concerns reported THRIVE Score: 1 SEEMA-7 AMB Questionnaire SEEMA-7 Date SEEMA - 7 assessed: 08/24/24 Source: Developed by Drs. Gopal Felton, Nanyc Jauregui, Mark Virk and colleagues, with an educational sree from [employer]. Physical exam (Primary Care) Vital Signs: Last Vital Signs Pulse 63 02/27/25 09:02 Resp 16 02/27/25 09:02 BP 112/62 02/27/25 09:02 Pulse Ox 99 02/27/25 09:02 BMI result Body Mass Index 28.2 Tobacco/Smoking Status: Tobacco use Status Tobacco use date assessed 02/27/25 02/27/25 09:03 Patient Tobacco Use Status Never used Tobacco 02/27/25 09:01 e-Cigarette/Vaping Use Never Used 02/27/25 09:01 Thrive Assessment: Date of Thrive Assessment Date Thrive assessed 08/24/24 02/27/25 09:01 Currently or been in a relationship where the following occur: No concerns reported Coding Level of Care Code Est Pt Level 3 (20293) Diagnoses HTN (hypertension) I10 Skin lesions L98.9 Assessment & Plan Assessment & Plan (1) HTN (hypertension): Code(s): I10 - Essential (primary) hypertension Category: Medical (2) Skin lesions: Code(s): L98.9 - Disorder of the skin and subcutaneous tissue, unspecified Category: Medical Plan . Orders: Orders Complete Blood Count Auto Diff Today I10 - Essential (primary) hypertension UA CC w/rflx Micro + Cult Today I10 - Essential (primary) hypertension Lipid Panel Today I10 - Essential (primary) hypertension Comprehensive [place]. Panel Fast Today I10 - Essential (primary) hypertension TSH reflex Free T4 Today I10 - Essential (primary) hypertension Referrals Dermatology Referral L98.9 - Disorder of the skin and subcutaneous tissue, unspecified
[2025-02-27 09:02] VITALS: BP 112/62; PULSE 63; RESP 16; O2SAT 99; BMI 28.2
== END 2025-02-27 11:31 | disposition home or self-care (01) ==
PROVIDERS: PCP Nurse Practitioner Family; Visit Provider Nurse Practitioner Family
DX: I10 Essential (primary) hypertension (principal); L98.9 Disorder of the skin and subcutaneous tissue, unspecified

== ENCOUNTER → 2025-02-27 08:41 | Outpatient (BNVA) | payer MEDICARE, SELFPAY | PROVIDERS: PCP Nurse Practitioner Family; Visit Provider Nurse Practitioner Family | DX: I10 Essential (primary) hypertension (principal); L98.9 Disorder of the skin and subcutaneous tissue, unspecified | CPT/HCPCS: 99212 ==